=== PATIENT | male | born 1990 | race Caucasian/White ===

== ENCOUNTER 2023-06-09 17:54 | Inpatient (IN) | payer OTHER, SELFPAY ==
[2023-06-09 18:07] VITALS: BP 111/72; PULSE 55; TEMP 36.3; O2SAT 99
--- NOTE | 2023-06-09 18:41 | PC.NURSE ---
Pt refued flu vaccine and nicotine replacement at this time
--- NOTE | 2023-06-09 18:58 | PC.ADMIT ---
Errol is a 32-year-old male admitted from [facility] ED to M3 on a CV for treatment of unspecified schizophrenia and other psychotic features. Pt denied substance use but tox screen positive for methadone, fentanyl, cocaine, THC. Pt utilizes [facility] on [address] for methadone maintenance. Pt has medical hx of cirrhosis and untreated hep C. Pt also had several teeth pulled yesterday and is on antibiotics. Pt has healed scars on bilateral arms r/t drug use. Pt was admitted to the ED after hearing voices telling him to do horrible things to myself. During admission assessment, pt presented as alert and oriented but thought process was disorganized with bizarre speech. Pt refused to answer some assessment questions and would instead ask do you believe in unicorns? Pt was otherwise pleasant and cooperative, pt currently denies SI/HI/AH/VH, placed on 15 min checks.
[2023-06-09] MEDS: Ibuprofen 600 MG TABLET PO (19:08)
[2023-06-09 19:50] VITALS: BP 110/60; PULSE 51; RESP 16; TEMP 36.3; O2SAT 99
[2023-06-09] MEDS: chlorproMAZINE HCl 25 MG TABLET 50 MG PO (20:25)
[2023-06-09] MEDS: traZODone HCL 50 MG TABLET PO (20:26)
[2023-06-09] MEDS: hydrOXYzine HCL 25 MG TABLET PO (20:26)
[2023-06-09] MEDS: ARIPiprazole 5 MG TABLET PO (20:26)
[2023-06-09] MEDS: Amoxicillin 500 MG CAPSULE PO (22:47)
--- NOTE | 2023-06-10 07:03 | PC.NURSE ---
This specification writer has verified the patients methadone dose at the [facility] by the clinic nurse Evy. Per clinic staff the patient received his last methadone dose of 55mg at 06:53 on 06/09/23. Dr Newman made aware, medication ordered
[2023-06-10] MEDS: Amoxicillin 500 MG CAPSULE PO (07:10)
[2023-06-10] MEDS: Ibuprofen 600 MG TABLET PO ×2 (07:13→20:18)
[2023-06-10 08:25] VITALS: BP 119/83; PULSE 62; RESP 16; TEMP 36.3; O2SAT 100
[2023-06-10] MEDS: ARIPiprazole 5 MG TABLET PO (08:31)
--- NOTE | 2023-06-10 08:32 | HE.PHANOTE ---
METHADONE CONFIRMATION FORM 55 MG LAST TAKEN 06/09 FROM [facility]
[2023-06-10 08:34] LABS: Estimated Average Glucose 100 mg/dL; Hemoglobin A1c % 5.1 % (<6.0)
[2023-06-10 08:39] LABS: Alanine Aminotransferase 99 U/L (0-40); Albumin Level 3.8 g/dL (3.5-5.0); Alkaline Phosphatase 54 U/L (39-117); Anion Gap 12 (12-20); Aspartate Amino Transferase 50 U/L (5-37); Bilirubin Total 0.5 mg/dL (0.0-1.0); Blood Urea Nitrogen 12 mg/dL (9-16); Calcium 9.2 mg/dL (8.4-10.2); Carbon Dioxide 27 mmol/L (22-29); Chloride 104 mmol/L (96-108); Cholesterol 144 mg/dL (<200); Estimated Glomerular Filt Rate > 60; Glucose Fasting 94 mg/dL (60-99); HDL Cholesterol 41 mg/dL (>40); LDL Cholesterol Calculated 88 mg/dL (<100); Potassium 4.6 mmol/L (3.3-5.1); Sodium 138 mmol/L (135-145); Total Protein 6.5 g/dL (6.5-8.0); Triglycerides 78 mg/dL (<150)
[2023-06-10] MEDS: methADONE HCl 20 MG/2 ML ORAL.CONC 55 MG PO (08:42)
--- NOTE | 2023-06-10 09:44 | HO.PSYADMNOT ---
HPI Date of Service: 06/10/23 Chief Complaint: psychosis Sources of Information: patient interviewed, chart reviewed and crisis/core team assessment reviewed HPI Subjective Notes: Cope Warning (given and shows understanding) and Conditional Voluntary Narrative: Mr. Mays is a 32 year-old male with hx of schizophrenia, complicated by opioid and cocaine use disorder. Mr. Mays self presented to [facility] ED reporting hearing voices telling him to do horrible things. In the ED, his utox was positive for fentanyl, cocaine and cannabis. On the unit, pt continued to present as disorganized, very restless, pacing and running up and down the [place]. He continues to report hearing voices, which are bothering him and he asks for medications to stop them. He denies SI/HI. He reports poor sleep. Interview is limited due to pt presenting as very restless, distressed with auditory hallucinations. He does report using cocaine and fentanyl recently. He poor appetite. He reports he has been on abilify for depression however, concern in terms of abilify exacerbating akathisia. Past Psychiatric History: Inpt: unknown details, previous admission but unknown dates OP: none Past medication trials: thorazine, abilify, seroquel Medical Evaluation Reviewed: Yes In ED- cbc grossly unremarkable. CMP- no electrolyte abnormalities, BUN 18, Cr. 0.89. Slight elevation of AST 46, ALT 107 EKG- sinus bradycardia, Qtc 390. [facility] Medical History (Updated 06/10/23 @ 14:59 by Vonnie Main) Opioid use disorder, severe, dependence Family History: none Social History: he does not have stable place to live. Substance History: pt reports using cocaine for several years, unknown amount He also reports using opioids, on methadone. alcohol- denies Trauma History: hx of but no details reported. Diagnostics Vital Signs (24Hr): Vital Signs - 24 hr 06/09/23 18:07 06/09/23 19:50 06/10/23 08:25 Temperature 97.4 F 97.3 F 97.4 F Pulse Rate 55 51 62 Respiratory Rate 16 16 Blood Pressure 111/72 110/60 119/83 Pulse Oximetry 99 99 100 Oxygen Delivery Method Room Air Room Air Room Air Labs 06/10/23 08:15 Labs: Laboratory Results - last 48 hr 06/10/23 08:15 Sodium 138 Potassium 4.6 Chloride 104 Carbon Dioxide 27 Anion Gap 12 BUN 12 Creatinine 0.83 Estim Creat Clear Calc TNP Estimated GFR > 60 Fasting Glucose 94 Estimat Average Glucose 100 Hemoglobin A1c % 5.1 Calcium 9.2 Total Bilirubin 0.5 AST 50 H ALT 99 H Alkaline Phosphatase 54 Total Protein 6.5 Albumin 3.8 Triglycerides 78 Cholesterol 144 LDL Cholesterol, Calc 88 HDL Cholesterol 41 Meds/Allergies Meds Home Medications Medication Instructions Recorded Confirmed Type aripiprazole 5 mg tablet 5 mg PO BID psychosis 06/09/23 06/09/23 History Allergies Allergies Allergy/AdvReac Type Severity Reaction Status Date / Time Radha Thomas Allergy Unknown Verified 06/09/23 18:15 Mental Status Exam Mental Status Exam Narrative: Appearance: casually groomed, fair hygiene, restless, pacing unable to stay still Psychomotor: restless, pacing, unable to stay still Behavior: cooperative Speech: mostly clear, regular rate/rhythm, volume, spontaneous TP: mostly linear TC: hearing voices, feeling very restless, pacing, tapping feet Mood: anxious Affect: restless, distress by auditory hallucinations SI: denies HI: denies VH/AH: hearing voices telling him to do horrible things Delusions: persecutory delusions Insight/judgment: fair x 2. Memory/cog: alert, oriented x 3. poor attention due to ongoing AH. Assessment & Plan Assessment & Plan (1) Schizophrenia: Status: Acute Code(s): F20.9 - Schizophrenia, unspecified (2) Opioid use disorder, moderate, dependence: Status: Acute Code(s): F11.20 - Opioid dependence, uncomplicated (3) Cocaine use disorder, moderate, dependence: Status: Acute Code(s): F14.20 - Cocaine dependence, uncomplicated Plan Mr. Mays is a 32 year-old male with hx of schizophrenia and opioid/cocaine use disorder who self presented to [facility] ED reporting increase AH telling him to do horrible things. Utox positive for fentanyl, cocaine, cannabis. Pt continues to present restless (which also suspect worsened by akathisia), reporting AH and feeling very distress by them. He also presents with persecutory delusions. We discussed risks, benefits and alternative treatment options. He agrees to stop abilify due to akathisia. WIll start olanzapine 10mg po BID. PLAN 1. Admit to M3, CV, 15 minutes checks for safety 2. d/c abilify due to akathisia 3. start olanzapine 10mg po BID. 4. aftercare planning. Patient educated on: diagnosis, medication risk/benefits and substance abuse Reason for continued inpatient stay Substantial Risk for: harm to self and inability to function Statement Statement: I have reviewed the history and physical and performed a pertinent examination on my patient. No changes have occurred unless specified. If the History and Physical was not performed prior to admission, the Hospitalist's service will be consulted for completing the admission physical. Time Spent With Patient Time: Total time managing care of this patient today ____ minutes.
[2023-06-10] MEDS: Acetaminophen 325 MG TABLET 650 MG PO ×2 (09:58→20:18)
[2023-06-10] MEDS: LORazepam 1 MG TABLET 2 MG PO (11:29)
[2023-06-10] MEDS: OLANZapine ODT 10 MG TAB.RAPDIS 20 MG TRANSLINGU (11:30)
--- NOTE | 2023-06-10 12:08 | P.CONIM_ITS ---
History of Present Illness Data of Consult Service Date: 06/10/23 Primary Care Provider: Chad Rodriguez MD HPI Reason for consult: Medical care A 32 years old male with PMH of schizophrenia and Narcotic abuse on Methadone who presented the psychiatry unit for treatment of psychosis. The patient denies any active pain, fever or chills. Hospitalist team asked to evaluated for medical need. Review of Systems 2 Review of Systems: Yes all other systems are reviewed and are negative [facility] Medical History (Updated 06/10/23 @ 14:59 by Vonnie Main) Opioid use disorder, severe, dependence Social History Household Members: None Housing: Homeless Patient Tobacco Use Status: Current someday Tobacco user Tobacco use type: Cigarette Cigarette Packs Per Day: 0.25 Cigarettes Per Day: 5.0 Smoked in Last 30 Days: Yes Frequency of e-Cigarette/Vaping Use: daily Patient Interested in Nicotine Replacement: No Patient Given Instructions on How to Stop Smoking: Yes Date Education Initiated: 06/09/23 Use of substances other than those prescribed or required for medical reasons: Yes Substance Use Type: Crack/Cocaine, Heroin and Marijuana Substance Use Frequency: Daily Last Used Substance: Just Prior to Admission Currently Displaying Signs/Symptoms of Drug Intoxication Withdrawal: No Any prior treatment program specific to substance use: Yes (on methadone) Have you been hit, kicked, punched, or otherwise hurt by someone within the past year? If so, by whom?: No Do you feel safe in your current relationship?: No Current Relationship Is there a partner from a previous relationship who is making you feel unsafe now?: No Are you made to feel afraid or neglected: No Advance Directives: No Advance Directives Information Provided: No Do you have thoughts of harming others: None Do you have a plan to hurt others: No Plan Recently lost weight without trying: No Nutrition Risks: No Nutritional Risk service: Yes Sexual orientation: Straight/Heterosexual Meds Allergies Allergy/AdvReac Type Severity Reaction Status Date / Time Radha Thomas Allergy Unknown Verified 06/09/23 18:15 Active Medications: Current Medications Acetaminophen (Acetaminophen 325 Mg Tablet) 650 mg PO Q6H PRN PRN Reason: Headache/Pain Mild Scale (1-3) Last Admin: 06/10/23 09:58 Dose: 650 mg Al Hydroxide/Mg Hydroxide (Magnesium Hydrox/Alum Hydrox 30 Ml Oral.Susp) 30 ml PO Q6H PRN PRN Reason: Heartburn/Nausea Amoxicillin (Amoxicillin 500 Mg Capsule) 500 mg PO Q8H [facility] Last Admin: 06/10/23 07:10 Dose: 500 mg Hydroxyzine HCl (Hydroxyzine Hcl 25 Mg Tablet) 25 mg PO Q6H PRN PRN Reason: Anxiety Last Admin: 06/09/23 20:26 Dose: 25 mg Ibuprofen (Ibuprofen 600 Mg Tablet) 600 mg PO Q6H PRN PRN Reason: Pain, Mild (Pain Scale 1-3) Last Admin: 06/10/23 07:13 Dose: 600 mg Magnesium Hydroxide (Milk Of Magnesia 30 Ml Oral.Susp) 30 ml PO DAILY PRN PRN Reason: Constipation Methadone HCl (Methadone Hcl 20 Mg/2 Ml Oral.Conc) 55 mg PO DAILY [facility] Last Admin: 06/10/23 08:42 Dose: 55 mg Nicotine (Nicotine 21 Mg Patch.Td24) 21 mg TRANSDERMA DAILY PRN PRN Reason: smoking cessation Nicotine Polacrilex (Nicotine Polacrilex 2 Mg Gum) 4 mg BUCCAL Q2H PRN PRN Reason: Nicotine Cravings Olanzapine (Olanzapine Odt 10 Mg Tab.Rapdis) 10 mg TRANSLINGU BID [facility] Olanzapine (Olanzapine Odt 10 Mg Tab.Rapdis) 10 mg TRANSLINGU BID PRN PRN Reason: agitation Trazodone HCl (Trazodone Hcl 50 Mg Tablet) 50 mg PO BEDTIME MRX1 PRN PRN Reason: Insomnia Home Medications Medication Instructions Recorded Confirmed Last Taken Type aripiprazole 5 mg tablet 5 mg PO BID psychosis 06/09/23 06/09/23 Unknown History Physical Exam 2 Vital Signs and Narrative: Vital Signs: Last Vital Signs Temp 97.4 F 06/10/23 08:25 Pulse 62 06/10/23 08:25 Resp 16 06/10/23 08:25 BP 119/83 06/10/23 08:25 Pulse Ox 100 06/10/23 08:25 O2 Del Method Room Air 06/10/23 08:25 Const: Other: Constitutional : Awake, interactive, not in distress Cardiovascular : RRR, no JVP, no lower extremity edema Respiratory : good bilateral air entry, no crackles, wheezes or rhonchi Gastrointestinal: soft, lax, Normal bowel sounds, Non tender Neurological : Alert & oriented x3, No focal deficit , CN 2-12 within normal Results Labs 06/10/23 08:15 Labs: Laboratory Results - last 24 hr 06/10/23 08:15 Anion Gap 12 Estim Creat Clear Calc TNP Estimated GFR > 60 Fasting Glucose 94 Estimat Average Glucose 100 Hemoglobin A1c % 5.1 Calcium 9.2 Total Bilirubin 0.5 AST 50 H ALT 99 H Alkaline Phosphatase 54 Total Protein 6.5 Albumin 3.8 Triglycerides 78 Cholesterol 144 LDL Cholesterol, Calc 88 HDL Cholesterol 41 Assessment and Plan (1) Opioid use disorder, moderate, dependence: Status: Acute (2) Schizophrenia: Status: Acute Plan A 32 years old male with PMH of schizophrenia and Narcotic abuse on Methadone who presented the psychiatry unit for treatment of psychosis. Hx Opioid abuse on Methadone Continue home dose addiction team follow up as needed Toothache post removal of 3 teeth last week on Ibuprofen and Amoxicillin Thank you for the consult. Please contact hospitalist team for any further questions
[2023-06-10 20:05] VITALS: BP 118/69; PULSE 60; RESP 15; TEMP 36.2; O2SAT 100
[2023-06-10] MEDS: hydrOXYzine HCL 25 MG TABLET PO (20:18)
[2023-06-10] MEDS: OLANZapine ODT 10 MG TAB.RAPDIS TRANSLINGU (20:19)
[2023-06-11] MEDS: Acetaminophen 325 MG TABLET 650 MG PO ×3 (06:01→18:00)
[2023-06-11] MEDS: Ibuprofen 600 MG TABLET PO ×3 (06:01→18:00)
[2023-06-11] MEDS: Amoxicillin 500 MG CAPSULE PO ×3 (06:30→20:15)
[2023-06-11 07:55] VITALS: BP 111/58; PULSE 84; TEMP 36.6; O2SAT 98
[2023-06-11] MEDS: methADONE HCl 20 MG/2 ML ORAL.CONC 55 MG PO (08:10)
[2023-06-11] MEDS: OLANZapine ODT 10 MG TAB.RAPDIS TRANSLINGU ×3 (08:10→20:15)
[2023-06-11] MEDS: hydrOXYzine HCL 25 MG TABLET PO ×2 (10:29→16:58)
[2023-06-11 20:00] VITALS: BP 125/74; PULSE 59; RESP 16; TEMP 37.1; O2SAT 99
[2023-06-11] MEDS: traZODone HCL 50 MG TABLET PO (20:14)
--- NOTE | 2023-06-11 20:18 | PC.NURSE ---
requested HS ANTIBIOTIC AT THIS TIME.
--- NOTE | 2023-06-11 22:41 | HO.PSYCHPN ---
Subjective Subjective Date of Service: 06/11/23 Reason For Visit: psychosis Interim History: cc: they switched my ABilify it does..heriberto Patient was asleep when I arrived this evening. Reports being on Abilify for one day but feels it made a difference. He doesnt like the medication he is on now and says he doesn know why it was changed. He does not recall any adverse effects. Uses expletives, is clearly very angry. Does notably speaks in a manner that makes him presents as younger than his age. He also has odd body gesturing upon sitting up and walking. He is restless w irregular hand fidgeting, as well as making incongruent facial expressions. He has been at the methdone clinic for 2 weeks currently at 55 mg he says. He reports cravings, usually after dinner. He intermittenly gets angry about his doctor stopping the ABilify. He reports disrupted sleep, 3-4 times a night Mental Status Exam Mental Status Exam Narrative: Alert, oriented, in no acute distress. In hospital gown. Abnormal gait. Restless, irregular writhing movements in hands, fingers fidgeting. No tics or tremors. Speech without dysarthria or slurring. Mood angry, affect labile. Thought process perseverative, thought blocking, scattered. Thought content relevant to one particular medication. Denies AVH, ?responding to internal stimuli. Cognition with memory impairment. Insight and judgment impaired. Diagnostics Vital Signs (24Hr): Vital Signs - 24 hr 06/11/23 07:55 06/11/23 20:00 Temperature 97.9 F 98.7 F Pulse Rate 84 59 Respiratory Rate 16 Blood Pressure 111/58 L 125/74 Pulse Oximetry 98 99 Oxygen Delivery Method Room Air Room Air Labs 06/10/23 08:15 Labs: Laboratory Results - last 48 hr 06/10/23 08:15 Sodium 138 Potassium 4.6 Chloride 104 Carbon Dioxide 27 Anion Gap 12 BUN 12 Creatinine 0.83 Estim Creat Clear Calc TNP Estimated GFR > 60 Fasting Glucose 94 Estimat Average Glucose 100 Hemoglobin A1c % 5.1 Calcium 9.2 Total Bilirubin 0.5 AST 50 H ALT 99 H Alkaline Phosphatase 54 Total Protein 6.5 Albumin 3.8 Triglycerides 78 Cholesterol 144 LDL Cholesterol, Calc 88 HDL Cholesterol 41 Medications Medications Current Medications Acetaminophen (Acetaminophen 325 Mg Tablet) 650 mg PO Q6H PRN PRN Reason: Headache/Pain Mild Scale (1-3) Last Admin: 06/11/23 18:00 Dose: 650 mg Al Hydroxide/Mg Hydroxide (Magnesium Hydrox/Alum Hydrox 30 Ml Oral.Susp) 30 ml PO Q6H PRN PRN Reason: Heartburn/Nausea Amoxicillin (Amoxicillin 500 Mg Capsule) 500 mg PO Q8H [facility] Last Admin: 06/11/23 20:15 Dose: 500 mg Hydroxyzine HCl (Hydroxyzine Hcl 25 Mg Tablet) 25 mg PO Q6H PRN PRN Reason: Anxiety Last Admin: 06/11/23 16:58 Dose: 25 mg Ibuprofen (Ibuprofen 600 Mg Tablet) 600 mg PO Q6H PRN PRN Reason: Pain, Mild (Pain Scale 1-3) Last Admin: 06/11/23 18:00 Dose: 600 mg Magnesium Hydroxide (Milk Of Magnesia 30 Ml Oral.Susp) 30 ml PO DAILY PRN PRN Reason: Constipation Methadone HCl (Methadone Hcl 20 Mg/2 Ml Oral.Conc) 55 mg PO DAILY [facility] Last Admin: 06/11/23 08:10 Dose: 55 mg Nicotine (Nicotine 21 Mg Patch.Td24) 21 mg TRANSDERMA DAILY PRN PRN Reason: smoking cessation Nicotine Polacrilex (Nicotine Polacrilex 2 Mg Gum) 4 mg BUCCAL Q2H PRN PRN Reason: Nicotine Cravings Olanzapine (Olanzapine Odt 10 Mg Tab.Rapdis) 10 mg TRANSLINGU BID [facility] Last Admin: 06/11/23 20:15 Dose: 10 mg Olanzapine (Olanzapine Odt 10 Mg Tab.Rapdis) 10 mg TRANSLINGU BID PRN PRN Reason: agitation Last Admin: 06/11/23 13:15 Dose: 10 mg Trazodone HCl (Trazodone Hcl 50 Mg Tablet) 50 mg PO BEDTIME MRX1 PRN PRN Reason: Insomnia Last Admin: 06/11/23 20:14 Dose: 50 mg Allergies Allergies Allergy/AdvReac Type Severity Reaction Status Date / Time Radha Thomas Allergy Unknown Verified 06/09/23 18:15 Assessment & Plan Assessment & Plan (1) Opioid use disorder, moderate, dependence: Status: Acute Code(s): F11.20 - Opioid dependence, uncomplicated (2) Schizophrenia: Status: Acute Code(s): F20.9 - Schizophrenia, unspecified Plan A 32 years old male with PMH of schizophrenia and Narcotic abuse on Methadone who presented the psychiatry unit for treatment of psychosis. Hx Opioid abuse on Methadone Continue home dose addiction team follow up as needed Toothache post removal of 3 teeth last week on Ibuprofen and Amoxicillin Thank you for the consult. Please contact hospitalist team for any further questions Reason for continued inpatient stay Substantial Risk for: inability to function, rapid decompensation and med/psych decompensation Time Spent With Patient Time: Total time managing care of this patient today ____ minutes.
[2023-06-12] MEDS: Acetaminophen 325 MG TABLET 650 MG PO ×4 (00:21→21:59)
[2023-06-12] MEDS: traZODone HCL 50 MG TABLET PO ×2 (00:22→20:02)
[2023-06-12] MEDS: Ibuprofen 600 MG TABLET PO ×5 (00:23→23:32)
[2023-06-12] MEDS: Amoxicillin 500 MG CAPSULE PO ×3 (06:12→20:02)
[2023-06-12] MEDS: hydrOXYzine HCL 25 MG TABLET PO ×2 (06:12→09:34)
[2023-06-12] MEDS: OLANZapine ODT 10 MG TAB.RAPDIS TRANSLINGU ×2 (08:08→13:19)
[2023-06-12] MEDS: methADONE HCl 20 MG/2 ML ORAL.CONC 55 MG PO (08:09)
[2023-06-12 08:25] VITALS: BP 124/65; PULSE 70; RESP 16; TEMP 35.9; O2SAT 100
[2023-06-12] MEDS: Nicotine 21 MG PATCH.TD24 TRANSDERMA (09:00)
[2023-06-12] MEDS: Nicotine Polacrilex 2 MG GUM 4 MG BUCCAL (10:58)
[2023-06-12] MEDS: hydrOXYzine HCL 50 MG TABLET PO (18:07)
[2023-06-12 19:55] VITALS: BP 121/70; PULSE 79; RESP 18; TEMP 36.7; O2SAT 96
[2023-06-12] MEDS: OLANZapine 7.5 MG TABLET 15 MG PO (20:01)
[2023-06-12] MEDS: cloNIDine HCL 0.1 MG TABLET PO (20:02)
--- NOTE | 2023-06-12 22:38 | HO.PSYCHPN ---
Subjective Subjective Date of Service: 06/13/23 Reason For Visit: psychosis Interim History: Patient seen in the early evening. He was again woken from sleep with overexaggerated expression of surprised/terror held for several seconds at a time. . He presents as labile, needy, he wants his ABilify back and often returns to this complaint. Becaomes increasingly more difficult to redirect. Disorganized. Bizarre behavior and attends poorly to discussion. He presents as younger than his age and has irregular hand fidgeting w subtle irregular choreic movements in hands. Abnormal gait and spasmodic posture, relaxing/extending back. Sometimes odd or exaggerated facial expressions, raising eyebrows, at times holds a terrified look for moments at time, or other incongruent facial expressions. Mental Status Exam Mental Status Exam Narrative: Alert, oriented, in no acute distress. In hospital gown. Abnormal gait. Restless, irregular writhing movements in hands, fingers fidgeting. No tics or tremors. Speech without dysarthria or slurring. Mood angry, affect labile. Thought process perseverative, thought blocking, scattered. Thought content relevant to one particular medication. Denies AVH, ?responding to internal stimuli. Cognition with memory impairment. Insight and judgment impaired. Diagnostics Vital Signs (24Hr): Vital Signs - 24 hr 06/12/23 08:25 06/12/23 19:55 Temperature 96.7 F L 98.0 F Pulse Rate 70 79 Respiratory Rate 16 18 Blood Pressure 124/65 121/70 Pulse Oximetry 100 96 Oxygen Delivery Method Room Air Room Air Labs 06/10/23 08:15 Medications Medications Current Medications Acetaminophen (Acetaminophen 325 Mg Tablet) 650 mg PO Q6H PRN PRN Reason: Headache/Pain Mild Scale (1-3) Last Admin: 06/12/23 21:59 Dose: 650 mg Al Hydroxide/Mg Hydroxide (Magnesium Hydrox/Alum Hydrox 30 Ml Oral.Susp) 30 ml PO Q6H PRN PRN Reason: Heartburn/Nausea Amoxicillin (Amoxicillin 500 Mg Capsule) 500 mg PO Q8H [facility] Last Admin: 06/12/23 20:02 Dose: 500 mg Clonidine HCl (Clonidine Hcl 0.1 Mg Tablet) 0.1 mg PO Q6H PRN; Protocol PRN Reason: anxiety/restlessness Last Admin: 06/12/23 20:02 Dose: 0.1 mg Hydroxyzine HCl (Hydroxyzine Hcl 50 Mg Tablet) 50 mg PO Q6H PRN PRN Reason: Anxiety Last Admin: 06/12/23 18:07 Dose: 50 mg Ibuprofen (Ibuprofen 600 Mg Tablet) 600 mg PO Q6H PRN PRN Reason: Pain, Mild (Pain Scale 1-3) Last Admin: 06/12/23 18:07 Dose: 600 mg Magnesium Hydroxide (Milk Of Magnesia 30 Ml Oral.Susp) 30 ml PO DAILY PRN PRN Reason: Constipation Methadone HCl (Methadone Hcl 20 Mg/2 Ml Oral.Conc) 55 mg PO DAILY [facility] Last Admin: 06/12/23 08:09 Dose: 55 mg Nicotine (Nicotine 21 Mg Patch.Td24) 21 mg TRANSDERMA DAILY PRN PRN Reason: smoking cessation Last Admin: 06/12/23 09:00 Dose: 21 mg Nicotine Polacrilex (Nicotine Polacrilex 2 Mg Gum) 4 mg BUCCAL Q2H PRN PRN Reason: Nicotine Cravings Last Admin: 06/12/23 10:58 Dose: 4 mg Olanzapine (Olanzapine Odt 10 Mg Tab.Rapdis) 10 mg TRANSLINGU BID PRN PRN Reason: agitation Last Admin: 06/12/23 13:19 Dose: 10 mg Olanzapine (Olanzapine 7.5 Mg Tablet) 15 mg PO BEDTIME [facility] Last Admin: 06/12/23 20:01 Dose: 15 mg Olanzapine (Olanzapine 10 Mg Tablet) 10 mg PO DAILY [facility] Trazodone HCl (Trazodone Hcl 50 Mg Tablet) 50 mg PO BEDTIME MRX1 PRN PRN Reason: Insomnia Last Admin: 06/12/23 20:02 Dose: 50 mg Allergies Allergies Allergy/AdvReac Type Severity Reaction Status Date / Time Radha Thomas Allergy Unknown Verified 06/09/23 18:15 Assessment & Plan Assessment & Plan (1) Opioid use disorder, moderate, dependence: Status: Acute Code(s): F11.20 - Opioid dependence, uncomplicated (2) Schizophrenia: Status: Acute Code(s): F20.9 - Schizophrenia, unspecified Plan A 32 years old male with PMH of schizophrenia and Narcotic abuse on Methadone who presented the psychiatry unit for treatment of psychosis. Hx Opioid abuse on Methadone Continue home dose addiction team follow up as needed Toothache post removal of 3 teeth last week on Ibuprofen and Amoxicillin Thank you for the consult. Please contact hospitalist team for any further questions Reason for continued inpatient stay Substantial Risk for: inability to function, rapid decompensation and med/psych decompensation Time Spent With Patient Time: Total time managing care of this patient today ____ minutes.
[2023-06-13] MEDS: traZODone HCL 50 MG TABLET PO ×3 (00:33→22:42)
[2023-06-13] MEDS: Amoxicillin 500 MG CAPSULE PO ×3 (05:58→20:49)
[2023-06-13] MEDS: Ibuprofen 600 MG TABLET PO ×3 (05:58→20:50)
[2023-06-13 06:00] VITALS: BP 109/55; PULSE 53; RESP 24; TEMP 36.1; O2SAT 100
[2023-06-13] MEDS: OLANZapine 10 MG TABLET PO (08:07)
[2023-06-13] MEDS: methADONE HCl 20 MG/2 ML ORAL.CONC 55 MG PO (08:07)
[2023-06-13] MEDS: Acetaminophen 325 MG TABLET 650 MG PO ×3 (08:13→22:40)
[2023-06-13] MEDS: Nicotine 21 MG PATCH.TD24 TRANSDERMA (08:13)
[2023-06-13] MEDS: hydrOXYzine HCL 50 MG TABLET PO ×2 (10:48→20:50)
[2023-06-13] MEDS: OLANZapine ODT 10 MG TAB.RAPDIS TRANSLINGU (13:30)
[2023-06-13] MEDS: OLANZapine 7.5 MG TABLET 15 MG PO (20:49)
[2023-06-13 20:55] VITALS: BP 121/66; PULSE 57; RESP 18; TEMP 36.2; O2SAT 97
--- NOTE | 2023-06-13 21:46 | HO.PSYCHPN ---
Subjective Subjective Date of Service: 06/13/23 Reason For Visit: psychosis Interim History: Patient was seen walking the hallways with headphones on. He continues to present as bright, superficial. Says he is doing well. Mood is great...been real happy . Denies any helplessness, hopelessness or SI. He reports feeling he is back to his normal self. He says he plans to no longer drink. I was drinking when I said I was going to kill myself He reports that he needs to give that up along with marijuana which he says is less of an issue. He adds that he spoke to his BF/partner about this who is fully supportive. Mental Status Exam Mental Status Exam Narrative: Alert, oriented, in no acute distress. Casually dressed. Calm, cooperative, forthcoming. Eye contact good. Mood euthymic, affect bright. Normal speech. No evidence of thought disorder. Thought content relevant to stressors. No SI or HI on inquiry. No evidence of mukund or psychosis. Cognition grossly intact. Sensorium clear. Insight and judgment fair/good Diagnostics Vital Signs (24Hr): Vital Signs - 24 hr 06/13/23 06:00 06/13/23 20:55 Temperature 96.9 F 97.1 F Pulse Rate 53 57 Respiratory Rate 24 H 18 Blood Pressure 109/55 L 121/66 Pulse Oximetry 100 97 Oxygen Delivery Method Room Air Room Air Labs 06/10/23 08:15 Medications Medications Current Medications Acetaminophen (Acetaminophen 325 Mg Tablet) 650 mg PO Q6H PRN PRN Reason: Headache/Pain Mild Scale (1-3) Last Admin: 06/13/23 16:50 Dose: 650 mg Al Hydroxide/Mg Hydroxide (Magnesium Hydrox/Alum Hydrox 30 Ml Oral.Susp) 30 ml PO Q6H PRN PRN Reason: Heartburn/Nausea Amoxicillin (Amoxicillin 500 Mg Capsule) 500 mg PO Q8H [facility] Last Admin: 06/13/23 20:49 Dose: 500 mg Clonidine HCl (Clonidine Hcl 0.1 Mg Tablet) 0.1 mg PO Q6H PRN; Protocol PRN Reason: anxiety/restlessness Last Admin: 06/12/23 20:02 Dose: 0.1 mg Hydroxyzine HCl (Hydroxyzine Hcl 50 Mg Tablet) 50 mg PO Q6H PRN PRN Reason: Anxiety Last Admin: 06/13/23 20:50 Dose: 50 mg Ibuprofen (Ibuprofen 600 Mg Tablet) 600 mg PO Q6H PRN PRN Reason: Pain, Mild (Pain Scale 1-3) Last Admin: 06/13/23 20:50 Dose: 600 mg Magnesium Hydroxide (Milk Of Magnesia 30 Ml Oral.Susp) 30 ml PO DAILY PRN PRN Reason: Constipation Methadone HCl (Methadone Hcl 20 Mg/2 Ml Oral.Conc) 55 mg PO DAILY [facility] Last Admin: 06/13/23 08:07 Dose: 55 mg Nicotine (Nicotine 21 Mg Patch.Td24) 21 mg TRANSDERMA DAILY PRN PRN Reason: smoking cessation Last Admin: 06/13/23 08:13 Dose: 21 mg Nicotine Polacrilex (Nicotine Polacrilex 2 Mg Gum) 4 mg BUCCAL Q2H PRN PRN Reason: Nicotine Cravings Last Admin: 06/12/23 10:58 Dose: 4 mg Olanzapine (Olanzapine Odt 10 Mg Tab.Rapdis) 10 mg TRANSLINGU BID PRN PRN Reason: agitation Last Admin: 06/13/23 13:30 Dose: 10 mg Olanzapine (Olanzapine 7.5 Mg Tablet) 15 mg PO BEDTIME [facility] Last Admin: 06/13/23 20:49 Dose: 15 mg Olanzapine (Olanzapine 10 Mg Tablet) 10 mg PO DAILY [facility] Last Admin: 06/13/23 08:07 Dose: 10 mg Trazodone HCl (Trazodone Hcl 50 Mg Tablet) 50 mg PO BEDTIME MRX1 PRN PRN Reason: Insomnia Last Admin: 06/13/23 20:50 Dose: 50 mg Allergies Allergies Allergy/AdvReac Type Severity Reaction Status Date / Time Radha Thomas Allergy Unknown Verified 06/09/23 18:15 Assessment & Plan Assessment & Plan (1) Opioid use disorder, moderate, dependence: Status: Acute Code(s): F11.20 - Opioid dependence, uncomplicated (2) Schizophrenia: Status: Acute Code(s): F20.9 - Schizophrenia, unspecified Plan A 32 years old male with PMH of schizophrenia and Narcotic abuse on Methadone who presented the psychiatry unit for treatment of psychosis. Hx Opioid abuse on Methadone Continue home dose addiction team follow up as needed Toothache post removal of 3 teeth last week on Ibuprofen and Amoxicillin Thank you for the consult. Please contact hospitalist team for any further questions Reason for continued inpatient stay Substantial Risk for: rapid decompensation and med/psych decompensation Time Spent With Patient Time: Total time managing care of this patient today ____ minutes.
[2023-06-14] MEDS: Ibuprofen 600 MG TABLET PO ×3 (03:52→20:26)
--- NOTE | 2023-06-14 03:52 | P.PNPSI_ITS ---
Subjective Subjective Date of Service: 06/13/23 Reason For Visit: psychosis Interim History: cc: I want my ABilify back! Patient was visible on the unit. Intrusive, hyperfocused on the ABilify. Approached me abruptly a few times, including while in the nursing station, about his ABilify. Also asked random staff members for his Abilify and was told to speak with the doctor. . He asked to speak with doctor and says He does not recall meeting me before, even after given reminders of our previous encounters over the past few days. He was labile, angry, irritable. Dismissed questions or attempts to redirect conversation to other topics. He presents as younger than his age and has irregular hand fidgeting w subtle irregular choreic movements in hands. Abnormal gait and spasmodic posture, relaxing/extending back. Sometimes odd or exaggerated facial expressions, raising eyebrows, at times holds a terrified look for moments at time, or other incongruent facial expressions. Memory and intellectual impairment, wondering if there's any history of Ccerebral palsy, or tourettes but no vocal tics. or possibly? Huntingtons disease, abnormal body movements, subtle, not grossly impairing but are highly peculiar. ?? No previous patient history in chart Mental Status Exam Mental Status Exam Narrative: Alert, oriented, in no acute distress. In hospital gown. Abnormal gait. Restless, irregular writhing movements in hands, fingers fidgeting. No tics or tremors. Speech without dysarthria or slurring. Mood angry, affect labile. Thought process perseverative, thought blocking, scattered. Thought content relevant to one particular medication. Denies AVH, ?repsonding to internal stimuli. Cognition with memory impairment. Insight and judgment impaired. Diagnostics Vital Signs (24Hr): Vital Signs - 24 hr 06/13/23 06:00 06/13/23 20:55 Temperature 96.9 F 97.1 F Pulse Rate 53 57 Respiratory Rate 24 H 18 Blood Pressure 109/55 L 121/66 Pulse Oximetry 100 97 Oxygen Delivery Method Room Air Room Air Labs 06/10/23 08:15 Medications Medications Current Medications Acetaminophen (Acetaminophen 325 Mg Tablet) 650 mg PO Q6H PRN PRN Reason: Headache/Pain Mild Scale (1-3) Last Admin: 06/13/23 22:40 Dose: 650 mg Al Hydroxide/Mg Hydroxide (Magnesium Hydrox/Alum Hydrox 30 Ml Oral.Susp) 30 ml PO Q6H PRN PRN Reason: Heartburn/Nausea Amoxicillin (Amoxicillin 500 Mg Capsule) 500 mg PO Q8H [facility] Last Admin: 06/13/23 20:49 Dose: 500 mg Clonidine HCl (Clonidine Hcl 0.1 Mg Tablet) 0.1 mg PO Q6H PRN; Protocol PRN Reason: anxiety/restlessness Last Admin: 06/12/23 20:02 Dose: 0.1 mg Hydroxyzine HCl (Hydroxyzine Hcl 50 Mg Tablet) 50 mg PO Q6H PRN PRN Reason: Anxiety Last Admin: 06/13/23 20:50 Dose: 50 mg Ibuprofen (Ibuprofen 600 Mg Tablet) 600 mg PO Q6H PRN PRN Reason: Pain, Mild (Pain Scale 1-3) Last Admin: 06/13/23 20:50 Dose: 600 mg Magnesium Hydroxide (Milk Of Magnesia 30 Ml Oral.Susp) 30 ml PO DAILY PRN PRN Reason: Constipation Methadone HCl (Methadone Hcl 20 Mg/2 Ml Oral.Conc) 55 mg PO DAILY [facility] Last Admin: 06/13/23 08:07 Dose: 55 mg Nicotine (Nicotine 21 Mg Patch.Td24) 21 mg TRANSDERMA DAILY PRN PRN Reason: smoking cessation Last Admin: 06/13/23 08:13 Dose: 21 mg Nicotine Polacrilex (Nicotine Polacrilex 2 Mg Gum) 4 mg BUCCAL Q2H PRN PRN Reason: Nicotine Cravings Last Admin: 06/12/23 10:58 Dose: 4 mg Olanzapine (Olanzapine Odt 10 Mg Tab.Rapdis) 10 mg TRANSLINGU BID PRN PRN Reason: agitation Last Admin: 06/13/23 13:30 Dose: 10 mg Olanzapine (Olanzapine 7.5 Mg Tablet) 15 mg PO BEDTIME [facility] Last Admin: 06/13/23 20:49 Dose: 15 mg Olanzapine (Olanzapine 10 Mg Tablet) 10 mg PO DAILY [facility] Last Admin: 06/13/23 08:07 Dose: 10 mg Trazodone HCl (Trazodone Hcl 50 Mg Tablet) 50 mg PO BEDTIME MRX1 PRN PRN Reason: Insomnia Last Admin: 06/13/23 22:42 Dose: 50 mg Allergies Allergies Allergy/AdvReac Type Severity Reaction Status Date / Time Peppers, Jalapeno Allergy Unknown Verified 06/09/23 18:15 Assessment & Plan Assessment & Plan (1) Opioid use disorder, moderate, dependence: Status: Acute Code(s): F11.20 - Opioid dependence, uncomplicated (2) Schizophrenia: Status: Acute Code(s): F20.9 - Schizophrenia, unspecified Plan A 32 years old male with PMH of schizophrenia and Narcotic abuse on Methadone who presented the psychiatry unit for treatment of psychosis. Hx Opioid abuse on Methadone Continue home dose addiction team follow up as needed Toothache post removal of 3 teeth last week on Ibuprofen and Amoxicillin Thank you for the consult. Please contact hospitalist team for any further questions Reason for continued inpatient stay Substantial Risk for: inability to function, rapid decompensation and med/psych decompensation Time Spent With Patient Time: Total time managing care of this patient today ____ minutes.
[2023-06-14] MEDS: Amoxicillin 500 MG CAPSULE PO ×3 (07:07→21:45)
[2023-06-14 07:35] VITALS: BP 108/66; PULSE 96; RESP 18; TEMP 36.6; O2SAT 98
[2023-06-14] MEDS: methADONE HCl 20 MG/2 ML ORAL.CONC 55 MG PO (08:51)
[2023-06-14] MEDS: OLANZapine 10 MG TABLET PO (08:54)
[2023-06-14] MEDS: Nicotine 21 MG PATCH.TD24 TRANSDERMA (09:48)
--- NOTE | 2023-06-14 10:11 | HO.PSYCHPN ---
Subjective Subjective Date of Service: 06/14/23 Reason For Visit: psychosis Subjective Notes: Conditional Voluntary Interim History: Pt reports difficulty falling asleep- RN described him as restless. This morning, pt appears calmer, in that he is not pacing and jumping up and down. He reports voices are less. He denies SI/HI. He is taking medications as prescribed. He reports having cravings to use cocaine and opioids. He wants to know if methadone can be increased. Review of Systems Review of Systems Yes all other systems are reviewed and are negative Mental Status Exam Mental Status Exam Narrative: Appearance: casually groomed, fair hygiene, in NAD Psychomotor: less restless Behavior: cooperative Speech: mostly clear, regular rate/rhythm, volume, spontaneous TP: mostly linear TC: hearing voices, feeling very restless, pacing, tapping feet Mood: better Affect: constricted SI: denies HI: denies VH/AH:less hearing voices telling him to do horrible things Delusions: less persecutory delusions Insight/judgment: fair x 2. Memory/cog: alert, oriented x 3. Diagnostics Vital Signs (24Hr): Vital Signs - 24 hr 06/13/23 20:55 06/14/23 07:35 Temperature 97.1 F 97.8 F Pulse Rate 57 96 Respiratory Rate 18 18 Blood Pressure 121/66 108/66 Pulse Oximetry 97 98 Oxygen Delivery Method Room Air Room Air Labs 06/10/23 08:15 Medications Medications Current Medications Acetaminophen (Acetaminophen 325 Mg Tablet) 650 mg PO Q6H PRN PRN Reason: Headache/Pain Mild Scale (1-3) Last Admin: 06/13/23 22:40 Dose: 650 mg Al Hydroxide/Mg Hydroxide (Magnesium Hydrox/Alum Hydrox 30 Ml Oral.Susp) 30 ml PO Q6H PRN PRN Reason: Heartburn/Nausea Amoxicillin (Amoxicillin 500 Mg Capsule) 500 mg PO Q8H [facility] Last Admin: 06/14/23 07:07 Dose: 500 mg Clonidine HCl (Clonidine Hcl 0.1 Mg Tablet) 0.1 mg PO Q6H PRN; Protocol PRN Reason: anxiety/restlessness Last Admin: 06/12/23 20:02 Dose: 0.1 mg Hydroxyzine HCl (Hydroxyzine Hcl 50 Mg Tablet) 50 mg PO Q6H PRN PRN Reason: Anxiety Last Admin: 06/13/23 20:50 Dose: 50 mg Ibuprofen (Ibuprofen 600 Mg Tablet) 600 mg PO Q6H PRN PRN Reason: Pain, Mild (Pain Scale 1-3) Last Admin: 06/14/23 03:52 Dose: 600 mg Magnesium Hydroxide (Milk Of Magnesia 30 Ml Oral.Susp) 30 ml PO DAILY PRN PRN Reason: Constipation Methadone HCl (Methadone Hcl 20 Mg/2 Ml Oral.Conc) 55 mg PO DAILY [facility] Last Admin: 06/14/23 08:51 Dose: 55 mg Nicotine (Nicotine 21 Mg Patch.Td24) 21 mg TRANSDERMA DAILY PRN PRN Reason: smoking cessation Last Admin: 06/14/23 09:48 Dose: 21 mg Nicotine Polacrilex (Nicotine Polacrilex 2 Mg Gum) 4 mg BUCCAL Q2H PRN PRN Reason: Nicotine Cravings Last Admin: 06/12/23 10:58 Dose: 4 mg Olanzapine (Olanzapine Odt 10 Mg Tab.Rapdis) 10 mg TRANSLINGU BID PRN PRN Reason: agitation Last Admin: 06/13/23 13:30 Dose: 10 mg Olanzapine (Olanzapine 7.5 Mg Tablet) 15 mg PO BEDTIME [facility] Last Admin: 06/13/23 20:49 Dose: 15 mg Olanzapine (Olanzapine 10 Mg Tablet) 10 mg PO DAILY [facility] Last Admin: 06/14/23 08:54 Dose: 10 mg Trazodone HCl (Trazodone Hcl 50 Mg Tablet) 50 mg PO BEDTIME MRX1 PRN PRN Reason: Insomnia Last Admin: 06/13/23 22:42 Dose: 50 mg Allergies Allergies Allergy/AdvReac Type Severity Reaction Status Date / Time Radha Thomas Allergy Unknown Verified 06/09/23 18:15 Assessment & Plan Assessment & Plan (1) Opioid use disorder, moderate, dependence: Status: Acute Code(s): F11.20 - Opioid dependence, uncomplicated (2) Schizophrenia: Status: Acute Code(s): F20.9 - Schizophrenia, unspecified Plan 06/14/2023-> add gabapentin at bedtime which may help with rls. continue current medications. Patient educated on: diagnosis and medication risk/benefits Informed Consent: understands Reason for continued inpatient stay Substantial Risk for: inability to function Time Spent With Patient Time: Total time managing care of this patient today ____ minutes.
--- NOTE | 2023-06-14 14:10 | PC.NURSE ---
Submitted 3 day notice, up on Tuesday06/17/23. Treatment team notified.
[2023-06-14] MEDS: Acetaminophen 325 MG TABLET 650 MG PO (16:02)
[2023-06-14 20:25] VITALS: BP 134/62; PULSE 80; RESP 16; TEMP 35.9; O2SAT 96
[2023-06-14] MEDS: Gabapentin 300 MG CAPSULE PO (20:27)
[2023-06-14] MEDS: OLANZapine 7.5 MG TABLET 15 MG PO (20:27)
[2023-06-14] MEDS: cloNIDine HCL 0.1 MG TABLET PO (20:27)
[2023-06-14] MEDS: traZODone HCL 50 MG TABLET PO (21:45)
[2023-06-14] MEDS: hydrOXYzine HCL 50 MG TABLET PO (21:45)
--- NOTE | 2023-06-14 21:45 | PC.NURSE ---
requesting abx to be given now, wants to go to bed and not be disturbed
[2023-06-15] MEDS: traZODone HCL 50 MG TABLET PO ×3 (02:27→23:47)
[2023-06-15] MEDS: Ibuprofen 600 MG TABLET PO ×2 (02:27→08:49)
[2023-06-15] MEDS: Acetaminophen 325 MG TABLET 650 MG PO ×3 (02:29→18:30)
[2023-06-15] MEDS: Amoxicillin 500 MG CAPSULE PO ×2 (06:28→14:36)
[2023-06-15 07:30] VITALS: BP 113/60; PULSE 75; RESP 16; TEMP 36.1; O2SAT 97
[2023-06-15] MEDS: OLANZapine 10 MG TABLET PO (08:23)
[2023-06-15] MEDS: methADONE HCl 20 MG/2 ML ORAL.CONC 55 MG PO (08:24)
[2023-06-15] MEDS: Nicotine 21 MG PATCH.TD24 TRANSDERMA (10:40)
[2023-06-15] MEDS: hydrOXYzine HCL 50 MG TABLET PO ×2 (11:31→20:33)
--- NOTE | 2023-06-15 17:40 | HO.PSYCHPN ---
Subjective Subjective Date of Service: 06/15/23 Reason For Visit: psychosis Interim History: calm, cooperative, pleasant, hyperverbal. states he is feeling all right. asks for a methadone dosing increase, is referred to speak with his methadone clinic as he will be discharging tuesday on a 3-day notice. denies SI/SIBI. asks about why maira was DCed, which is explained. per staff, 3-day up tuesday. attending some groups. Mental Status Exam Mental Status Exam Narrative: Appearance: casually groomed, fair hygiene, in NAD Psychomotor: less restless Behavior: cooperative Speech: mostly clear, regular rate/rhythm, volume, spontaneous TP: mostly linear TC: hearing voices, feeling very restless, pacing, tapping feet Mood: all right Affect: flexible, full range SI: denies HI: denies VH/AH:less hearing voices telling him to do horrible things Delusions: less persecutory delusions Insight/judgment: fair x 2. Memory/cog: alert, oriented x 3. Diagnostics Vital Signs (24Hr): Vital Signs - 24 hr 06/14/23 20:25 06/15/23 07:30 Temperature 96.6 F L 97 F Pulse Rate 80 75 Respiratory Rate 16 16 Blood Pressure 134/62 113/60 Pulse Oximetry 96 97 Oxygen Delivery Method Room Air Labs 06/10/23 08:15 Medications Medications Current Medications Acetaminophen (Acetaminophen 325 Mg Tablet) 650 mg PO Q6H PRN PRN Reason: Headache/Pain Mild Scale (1-3) Last Admin: 06/15/23 10:40 Dose: 650 mg Al Hydroxide/Mg Hydroxide (Magnesium Hydrox/Alum Hydrox 30 Ml Oral.Susp) 30 ml PO Q6H PRN PRN Reason: Heartburn/Nausea Amoxicillin (Amoxicillin 500 Mg Capsule) 500 mg PO Q8H [facility] Last Admin: 06/15/23 14:36 Dose: 500 mg Clonidine HCl (Clonidine Hcl 0.1 Mg Tablet) 0.1 mg PO Q6H PRN; Protocol PRN Reason: anxiety/restlessness Last Admin: 06/14/23 20:27 Dose: 0.1 mg Gabapentin (Gabapentin 300 Mg Capsule) 300 mg PO BEDTIME [facility] Last Admin: 06/14/23 20:27 Dose: 300 mg Hydroxyzine HCl (Hydroxyzine Hcl 50 Mg Tablet) 50 mg PO Q6H PRN PRN Reason: Anxiety Last Admin: 06/15/23 11:31 Dose: 50 mg Ibuprofen (Ibuprofen 600 Mg Tablet) 600 mg PO Q6H PRN PRN Reason: Pain, Mild (Pain Scale 1-3) Last Admin: 06/15/23 14:36 Dose: 600 mg Magnesium Hydroxide (Milk Of Magnesia 30 Ml Oral.Susp) 30 ml PO DAILY PRN PRN Reason: Constipation Methadone HCl (Methadone Hcl 20 Mg/2 Ml Oral.Conc) 55 mg PO DAILY [facility] Last Admin: 06/15/23 08:24 Dose: 55 mg Nicotine (Nicotine 21 Mg Patch.Td24) 21 mg TRANSDERMA DAILY PRN PRN Reason: smoking cessation Last Admin: 06/15/23 10:40 Dose: 21 mg Nicotine Polacrilex (Nicotine Polacrilex 2 Mg Gum) 4 mg BUCCAL Q2H PRN PRN Reason: Nicotine Cravings Last Admin: 06/12/23 10:58 Dose: 4 mg Olanzapine (Olanzapine Odt 10 Mg Tab.Rapdis) 10 mg TRANSLINGU BID PRN PRN Reason: agitation Last Admin: 06/13/23 13:30 Dose: 10 mg Olanzapine (Olanzapine 7.5 Mg Tablet) 15 mg PO BEDTIME [facility] Last Admin: 06/14/23 20:27 Dose: 15 mg Olanzapine (Olanzapine 10 Mg Tablet) 10 mg PO DAILY [facility] Last Admin: 06/15/23 08:23 Dose: 10 mg Trazodone HCl (Trazodone Hcl 50 Mg Tablet) 50 mg PO BEDTIME MRX1 PRN PRN Reason: Insomnia Last Admin: 06/15/23 02:27 Dose: 50 mg Allergies Allergies Allergy/AdvReac Type Severity Reaction Status Date / Time Radha Thomas Allergy Unknown Verified 06/09/23 18:15 Assessment & Plan Assessment & Plan (1) Opioid use disorder, moderate, dependence: Status: Acute Code(s): F11.20 - Opioid dependence, uncomplicated (2) Schizophrenia: Status: Acute Code(s): F20.9 - Schizophrenia, unspecified Plan 06/14/2023-> add gabapentin at bedtime which may help with rls. continue current medications. 06/15: continue current mgmt. signed 3-day notice, up tuesday. planning to DC tuesday. Reason for continued inpatient stay Substantial Risk for: inability to function and rapid decompensation Time Spent With Patient Time: Total time managing care of this patient today __25__ minutes.
[2023-06-15 18:00] VITALS: BP 126/61; PULSE 73; TEMP 36.1; O2SAT 97
[2023-06-15] MEDS: Gabapentin 300 MG CAPSULE PO (20:33)
[2023-06-15] MEDS: OLANZapine 7.5 MG TABLET 15 MG PO (20:33)
[2023-06-15] MEDS: OLANZapine ODT 10 MG TAB.RAPDIS TRANSLINGU (23:48)
[2023-06-15] MEDS: cloNIDine HCL 0.1 MG TABLET PO (23:48)
[2023-06-16] MEDS: methADONE HCl 20 MG/2 ML ORAL.CONC 55 MG PO (07:42)
[2023-06-16] MEDS: OLANZapine 10 MG TABLET PO (07:42)
[2023-06-16 08:05] VITALS: BP 109/59; PULSE 86; RESP 18; TEMP 36.4; O2SAT 95
[2023-06-16] MEDS: Nicotine 21 MG PATCH.TD24 TRANSDERMA (09:00)
[2023-06-16] MEDS: hydrOXYzine HCL 50 MG TABLET PO ×2 (11:04→20:05)
[2023-06-16] MEDS: Acetaminophen 325 MG TABLET 650 MG PO (12:35)
--- NOTE | 2023-06-16 12:35 | P.DS_ITS ---
DS: Providers Provider Date of Service: 06/16/23 Date of admission: 06/09/23 17:54 Primary care physician: Chad Rodriguez MD Consults: 06/09/23 19:02 Consult to Hospitalist Routine Comment: Consulting Provider: Hospitalist Reason For Exam: admission physical DS: Diagnosis Discharge Diagnosis (1) Opioid use disorder, moderate, dependence: Status: Acute (2) Schizophrenia: Status: Acute DS: Medications Discharge Medications Home Medications: Previous Rx's Medication Instructions Recorded clonidine HCl 0.1 mg tablet 0.1 mg PO BID PRN 06/16/23 Anxiety/Restlessness 30 days #60 tabs gabapentin 300 mg capsule 300 mg PO BEDTIME 30 days #30 caps 06/16/23 hydroxyzine HCl 50 mg tablet 50 mg PO BID PRN Anxiety 30 days 06/16/23 #60 tabs methadone 10 mg/mL oral 55 mg (5.5 mL) PO DAILY #0 mL 06/16/23 concentrate (Methadose) nicotine (polacrilex) 2 mg buccal 2 mg buccal Q2-4H PRN nicotine 06/16/23 lozenge (Nicorette) cravings 30 days #72 ea nicotine 21 mg/24 hr daily 21 mg transdermal DAILY PRN 06/16/23 transdermal patch smoking cessation 28 days #28 ea olanzapine 10 mg tablet 10 mg PO DAILY 30 days #30 tabs 06/16/23 olanzapine 7.5 mg tablet 15 mg (2 x 7.5 mg) PO BEDTIME 30 06/16/23 days #60 tabs trazodone 50 mg tablet 100 mg (2 x 50 mg) PO BEDTIME 06/16/23 Insomnia 30 days #60 tabs Mental Status Exam Mental Status Exam Narrative: Appearance: casually groomed, fair hygiene, in NAD Psychomotor: less restless Behavior: cooperative Speech: clear, regular rate/rhythm, volume, spontaneous TP: linear TC: focussed on discharge. no delusions or paranoia expressed. Mood: good Affect: flexible, full range SI: denies HI: denies VH/AH: denies Insight/judgment: fair x 2. Memory/cog: alert, oriented x 3. Data Data Completed and Pending Completed studies during hospitalization [Text1]: 06/10/23 08:15 Sodium 138 Potassium 4.6 Chloride 104 Carbon Dioxide 27 Anion Gap 12 BUN 12 Creatinine 0.83 Estim Creat Clear Calc TNP Estimated GFR > 60 Fasting Glucose 94 Estimat Average Glucose 100 Hemoglobin A1c % 5.1 Calcium 9.2 Total Bilirubin 0.5 AST 50 H ALT 99 H Alkaline Phosphatase 54 Total Protein 6.5 Albumin 3.8 Triglycerides 78 Cholesterol 144 LDL Cholesterol, Calc 88 HDL Cholesterol 41 DS: Summary Hospital Course Hospital Course: per 06/10 admission note: Mr. Mays is a 32 year-old male with hx of schizophrenia, complicated by opioid and cocaine use disorder. Mr. Mays self presented to [facility] ED reporting hearing voices telling him to do horrible things. In the ED, his utox was positive for fentanyl, cocaine and cannabis. On the unit, pt continued to present as disorganized, very restless, pacing and running up and down the [place]. He continues to report hearing voices, which are bothering him and he asks for medications to stop them. He denies SI/HI. He reports poor sleep. Interview is limited due to pt presenting as very restless, distressed with auditory hallucinations. He does report using cocaine and fentanyl recently. He poor appetite. He reports he has been on abilify for depression however, concern in terms of abilify exacerbating akathisia. Past Psychiatric History: Inpt: unknown details, previous admission but unknown dates OP: none Past medication trials: thorazine, abilify, seroquel Medical Evaluation Reviewed: Yes In ED- cbc grossly unremarkable. CMP- no electrolyte abnormalities, BUN 18, Cr. 0.89. Slight elevation of AST 46, ALT 107 EKG- sinus bradycardia, Qtc 390. [facility] Medical History (Updated 06/10/23 @ 14:59 by Vonnie Main) Opioid use disorder, severe, dependence Family History: none Social History: he does not have stable place to live. Substance History: pt reports using cocaine for several years, unknown amount He also reports using opioids, on methadone. alcohol- denies Trauma History: hx of but no details reported. Precis: Mr. Mays is a 32 year-old male with hx of schizophrenia and opioid/cocaine use disorder who self presented to [facility] ED reporting increase AH telling him to do horrible things. Utox positive for fentanyl, cocaine, cannabis. Pt continues to present restless (which also suspect worsened by akathisia), reporting AH and feeling very distress by them. He also presents with persecutory delusions. We discussed risks, benefits and alternative treatment options. He agrees to stop abilify due to akathisia. WIll start olanzapine 10mg po BID. 06/10: Admit to M3, CV, 15 minutes checks for safety. d/c abilify due to akathisia. start olanzapine 10mg po BID. aftercare planning. 06/11: Patient was asleep when I arrived this evening. Reports being on Abilify for one day but feels it made a difference. He doesnt like the medication he is on now and says he doesn know why it was changed. He does not recall any adverse effects. Uses expletives, is clearly very angry. Does notably speaks in a manner that makes him presents as younger than his age. He also has odd body gesturing upon sitting up and walking. He is restless w irregular hand fidgeting, as well as making incongruent facial expressions. He has been at the meth[facility] clinic for 2 weeks currently at 55 mg he says. He reports cravings, usually after dinner. He intermittenly gets angry about his doctor stopping the ABilify. He reports disrupted sleep, 3-4 times a night 06/12: Patient seen in the early evening. He was again woken from sleep with overexaggerated expression of surprised/terror held for several seconds at a time. . He presents as labile, needy, he wants his ABilify back and often returns to this complaint. Becaomes increasingly more difficult to redirect. Disorganized. Bizarre behavior and attends poorly to discussion. He presents as younger than his age and has irregular hand fidgeting w subtle irregular choreic movements in hands. Abnormal gait and spasmodic posture, relaxing/extending back. Sometimes odd or exaggerated facial expressions, raising eyebrows, at times holds a terrified look for moments at time, or other incongruent facial expressions. 06/13: Patient was visible on the unit. Intrusive, hyperfocused on the ABilify. Approached me abruptly a few times, including while in the nursing station, about his ABilify. Also asked random staff members for his Abilify and was told to speak with the doctor. . He asked to speak with doctor and says He does not recall meeting me before, even after given reminders of our previous encounters over the past few days. He was labile, angry, irritable. Dismissed questions or attempts to redirect conversation to other topics. He presents as younger than his age and has irregular hand fidgeting w subtle irregular choreic movements in hands. Abnormal gait and spasmodic posture, relaxing/extending back. Sometimes odd or exaggerated facial expressions, raising eyebrows, at times holds a terrified look for moments at time, or other incongruent facial expressions. Memory and intellectual impairment, wondering if there's any history of Ccerebral palsy, or tourettes but no vocal tics. or possibly? Huntingtons disease, abnormal body movements, subtle, not grossly impairing but are highly peculiar. ?? No previous patient history in chart 06/14/2023-> add gabapentin at bedtime which may help with rls. continue current medications. 06/15: continue current mgmt. signed 3-day notice, up tuesday. planning to DC tuesday. 06/16: discharged as per plan. stable, safe. Time Spent with Patient Time attestation: Total time managing care of this patient today ____ minutes. Time spent: Greater than 30 minutes Discharge Plan Discharge Anticipated Discharge Date/Time: 06/17/23 11:59 Patient Disposition: Skilled Nursing Discharge Diagnosis: Schizophrenia Opioid Use Disorder on full agonist maintenance Cocaine Use Disorder Referrals: Psych Prescriber: Lynn Gonzalez ([facility]) [Other] - 06/22/23 10:00 am (Appointment is in person at [facility]; once you see Lynn, she can refer you to their therapist (Sarah) and get you a primary care appointment with Dr. Rodriguez if needed. ) Discharge Medications: New nicotine 21 mg/24 hr Patch 24 Hour 21 mg transdermal DAILY PRN (Reason: smoking cessation) 28 Days Qty: 28 0RF nicotine (polacrilex) [Nicorette] 2 mg lozenge 2 mg buccal Q2-4H PRN (Reason: nicotine cravings) 30 Days Qty: 72 0RF clonidine HCl 0.1 mg Tablet 0.1 mg PO BID PRN (Reason: Anxiety/Restlessness) 30 Days Qty: 60 0RF Protocol: Hold for SBP< HOLD for SBP < : 90 trazodone 50 mg Tablet 100 mg PO BEDTIME 30 Days Qty: 60 0RF olanzapine 10 mg Tablet 10 mg PO DAILY 30 Days Qty: 30 0RF hydroxyzine HCl 50 mg Tablet 50 mg PO BID PRN (Reason: Anxiety) 30 Days Qty: 60 0RF olanzapine 7.5 mg Tablet 15 mg PO BEDTIME 30 Days Qty: 60 0RF gabapentin 300 mg Capsule 300 mg PO BEDTIME 30 Days Qty: 30 0RF methadone [Methadose] 10 mg/mL Concentrate 55 mg PO DAILY Qty: 0 0RF Rx Instructions: Partial Fill upon patient request. Discontinued aripiprazole 5 mg tablet 5 mg PO BID Discharge Orders: Discharge Order (Routine); Ordered 06/17/23 Ordered By: Nura Zamora Diet: Advance to usual diet Activity on Discharge: As tolerated Stand Alone Forms: Patient Portal Discharge page, Community Support Care Plan Goals: remain safe, sober, and stable in the outpatient treatment setting Health Concerns: none Plan of Treatment: take medications as prescribed, attend appointments as scheduled Assessment: not at imminent risk of harm to self or others Discharge Date/Time: 06/17/23 10:30
[2023-06-16 20:05] VITALS: BP 137/69; PULSE 78; RESP 18; TEMP 37; O2SAT 98
[2023-06-16] MEDS: traZODone HCL 50 MG TABLET PO (20:05)
[2023-06-16] MEDS: OLANZapine 7.5 MG TABLET 15 MG PO (20:05)
[2023-06-17] MEDS: Acetaminophen 325 MG TABLET 650 MG PO (08:07)
[2023-06-17] MEDS: OLANZapine 10 MG TABLET PO (08:07)
[2023-06-17] MEDS: methADONE HCl 20 MG/2 ML ORAL.CONC 55 MG PO (08:07)
[2023-06-17 08:51] VITALS: BP 123/68; PULSE 78; RESP 16; TEMP 36.8; O2SAT 97
== END 2023-06-17 10:30 | disposition home or self-care (01) | DRG 750 ==
PROVIDERS: Psychiatry & Neurology Psychiatry; Admitting Provider Psychiatry & Neurology Psychiatry; PCP Internal Medicine; Visit Provider Psychiatry & Neurology Psychiatry
DX: F20.9 Schizophrenia, unspecified (principal); F11.20 Opioid dependence, uncomplicated; F17.210 Nicotine dependence, cigarettes, uncomplicated; K08.89 Other specified disorders of teeth and supporting structures; Z71.6 Tobacco abuse counseling; Z79.899 Other long term (current) drug therapy
CPT/HCPCS: 36415; 80053; 80061; 83036

== ENCOUNTER → 2023-06-09 17:54 | Outpatient (BNV) | payer OTHER, SELFPAY | PROVIDERS: Admitting Provider Psychiatry & Neurology Psychiatry; PCP Internal Medicine; Visit Provider Social Worker | DX: F20.1 Disorganized schizophrenia (principal); F11.20 Opioid dependence, uncomplicated; F14.20 Cocaine dependence, uncomplicated | CPT/HCPCS: 99231; 99232; 99233; 99499 ==

== ENCOUNTER → 2023-06-09 17:54 | Outpatient (BNV) | payer MEDICAID, SELFPAY | PROVIDERS: Admitting Provider Psychiatry & Neurology Psychiatry; PCP Internal Medicine; Visit Provider Student in an Organized Health Care Education/Training Program | DX: Z02.2 Encounter for examination for admission to residential institution (principal) | CPT/HCPCS: 99429 ==

== ENCOUNTER 2023-07-07 20:34 | Emergency (ER) | payer MEDICAID, SELFPAY ==
--- NOTE | ~2023-07-07 | CT_ITS ---
EXAMINATION: CT ABDOMEN AND PELVIS WITHOUT IV CONTRAST CLINICAL INFORMATION: Flank pain, left COMPARISON: None TECHNIQUE: Multiple axial images were obtained from the superior aspect of the liver through the pubic symphysis without intravenous contrast. Images were evaluated on independent dedicated 3-D workstation and 3-D images were reconstructed with concurrent radiologist supervision and subsequently interpreted. Oral contrast was not administered. This CT examination was performed using dose optimization techniques as appropriate, variously including the following: *Automated exposure control *Adjustment of mA and/or kV according to patient size (this includes techniques or standardized protocols for targeted exams where dose is matched to indication/reason for exam; i.e. extremities or head) *Use of iterative reconstruction technique DLP: 586 mGy-cm FINDINGS: LUNG BASES: The visualized lung bases are clear. CARDIOMEDIASTINUM: The visualized heart is normal in size without pericardial effusion. No coronary artery calcification. LIVER: Homogeneous in attenuation. Enlarged measuring 22 cm in the midclavicular line.. GALLBLADDER: Noninflamed. BILIARY SYSTEM: No intrahepatic or extrahepatic biliary dilation. PANCREAS: Homogeneous in attenuation. SPLEEN: Scattered calcified granulomas. GENITOURINARY: No contour deforming masses. No perinephric fluid collection. No renal calculi. No hydroureteronephrosis. ADRENAL GLANDS: Unremarkable. REPRODUCTIVE: Coarse prostatic calcifications. GASTROINTESTINAL: The visualized alimentary tract is normal in course. Mild subtle thickening of the sigmoid colonic wall. No diverticular disease. No evidence of obstruction. APPENDIX: The appendix is seen in its entirety and is unremarkable. PERITONEUM: No pneumoperitoneum. No intra-abdominal fluid collection. VASCULATURE: No abdominal aortic aneurysm. LYMPH NODES: No pathologically enlarged abdominal or pelvic lymph nodes. SOFT TISSUES/MUSCULOSKELETAL: There is no acute fracture or significant focal osseous lesion. CT/CT abdomen pelvis wo IV con IMPRESSION: 1. No renal calculi or obstructive uropathy. 2. Subtle short segment thickening of the sigmoid colon without pericolonic inflammatory changes. This may be related to chronic constipation as there is a moderate to severe degree of stool burden.. Fleischner guidelines were followed.
--- NOTE | 2023-07-07 21:14 | ED.ABDPAIN ---
HPI - Abdominal Pain General Chief Complaint: Abdominal Pain Stated Complaint: ULQ pain, feeling exhausted Time Seen by Provider: 07/07/23 21:14 Source: patient Mode of arrival: EMS Limitations: no limitations History of Present Illness HPI narrative: Patient's history of schizophrenia substance abuse fentanyl cocaine came from [facility] where been admitted for last 2 weeks complaining of pain in left no nausea no vomiting pain is going for last 2 days been increases after eating no diarrhea no constipation no fever or chills no history of pancreatitis Related Data Previous Rx's Medication Instructions Recorded clonidine HCl 0.1 mg tablet 0.1 mg PO BID PRN 06/16/23 Anxiety/Restlessness 30 days #60 tabs gabapentin 300 mg capsule 300 mg PO BEDTIME 30 days #30 caps 06/16/23 hydroxyzine HCl 50 mg tablet 50 mg PO BID PRN Anxiety 30 days 06/16/23 #60 tabs methadone 10 mg/mL oral 55 mg (5.5 mL) PO DAILY #0 mL 06/16/23 concentrate (Methadose) nicotine (polacrilex) 2 mg buccal 2 mg buccal Q2-4H PRN nicotine 06/16/23 lozenge (Nicorette) cravings 30 days #72 ea nicotine 21 mg/24 hr daily 21 mg transdermal DAILY PRN 06/16/23 transdermal patch smoking cessation 28 days #28 ea olanzapine 10 mg tablet 10 mg PO DAILY 30 days #30 tabs 06/16/23 olanzapine 7.5 mg tablet 15 mg (2 x 7.5 mg) PO BEDTIME 30 06/16/23 days #60 tabs trazodone 50 mg tablet 100 mg (2 x 50 mg) PO BEDTIME 06/16/23 Insomnia 30 days #60 tabs polyethylene glycol 3350 17 17 g PO DAILY #510 grams 07/07/23 gram/dose oral powder (Miralax) Allergies Allergy/AdvReac Type Severity Reaction Status Date / Time Radha Thomas Allergy Unknown Verified 07/07/23 21:21 Review of Systems Review of Systems Yes all other systems are reviewed and are negative PMFSH Past Medical History Medical History Opioid use disorder, severe, dependence Social History Social History Household Members: None Housing: Homeless Alcohol intake: current Patient Tobacco Use Status: Current someday Tobacco user Tobacco use type: Cigarette Cigarette Packs Per Day: 0.25 Cigarettes Per Day: 5.0 Smoked in Last 30 Days: Yes Use of substances other than those prescribed or required for medical reasons: Yes Substance Use Type: Crack/Cocaine, Heroin and Marijuana Advance Directives: No Advance Directives Information Provided: No service: Yes Sexual orientation: Straight/Heterosexual Physical Exam ED Vital Signs: Vital Signs - 24 hr 07/07/23 21:21 07/07/23 23:56 07/08/23 01:18 Temperature 97.6 F 97.2 F 97.5 F Pulse Rate 77 68 76 Respiratory Rate 12 16 16 Blood Pressure 102/61 106/65 100/56 L Pulse Oximetry 98 97 97 Oxygen Delivery Method Room Air Room Air Room Air BMI result Body Mass Index 30.2 Appearance: Alert. Oriented X3. No acute distress. Sleepy Eyes: PERRLA, no pallor no icterus ENT: Pharynx normal. Oral Mucosa moist Neck: Normal inspection. Neck supple. CVS: Normal heart rate and rhythm. Pulses normal. Respiratory: No respiratory distress. Equal air entry bilateral, no wheezing/rales/rhonchi Abdomen: Soft tenderness left upper quadrant no rebound tenderness Bowel sounds are present, no mass palpable, no CVA tenderness Skin: Skin warm and dry. Normal skin color. Normal skin turgor. Extremities: No lower extremity edema. No calf tenderness Neuro: Oriented X 3. No motor deficit. Medical Decision Making Medical Decision Making [facility] Narrative: Patient nonspecific left upper quadrant pain workup is negative except for constipation discharge patient back to [facility] on stool softener Differential Diagnosis Differential Diagnoses: The differential diagnosis associated with the presentation includes Diverticulitis/kidney stone/constipated Lab Data [facility] Lab Attestation statement: I reviewed the patient's lab results. 07/07/23 21:44 07/07/23 21:44 Labs: Lab Results 07/07/23 07/07/23 07/07/23 Range/Units 21:44 22:26 22:27 WBC 7.9 (4.8-10.8) X10*3/uL RBC 4.46 L (4.60-5.80) X10*6/uL Hgb 12.6 L (14.0-18.0) g/dl Hct 37.7 L (42.0-52.0) % MCV 84.5 (80.0-98.0) fL MCH 28.3 (27.0-33.0) pg MCHC 33.4 (31.0-36.0) g/dl RDW 13.8 (11.0-16.0) % Plt Count 211 (160-400) X10*3/uL MPV 10.6 (9.4-12.4) fL Absolute Nucleated RBC 0.000 (0.0-0.012) X10*3/uL Nucleated RBC % (auto) 0.0 (0.0-0.2) /100WBC Sodium 136 (135-145) mmol/L Potassium 4.6 (3.3-5.1) mmol/L Chloride 99 (96-108) mmol/L Carbon Dioxide 24 (22-29) mmol/L Anion Gap 18 (12-20) BUN 15 (9-16) mg/dL Creatinine 0.90 (0.5-1.4) mg/dL Estim Creat Clear Calc 134.2 Estimated GFR > 60 Random Glucose 100 (60-115) mg/dL Calcium 9.2 (8.4-10.2) mg/dL Lipase 14 (8-78) U/L Urine Color Yellow Urine Appearance Clear Urine pH 7.0 (5.0-9.0) Ur Specific [place] 1.010 (1.005-1.025) Urine Protein Negative (Neg-Trace) mg/dL Urine Glucose (UA) Negative (Negative) mg/dL Urine Ketones Negative (Negative) mg/dL Urine Blood Negative (Negative) Urine Nitrite Negative (Negative) Ur Leukocyte Esterase Negative (Negative) Urine Opiates Screen Not Detected (Not Detect) Urine Fentanyl Screen Not Detected (Not Detect) Ur Barbiturates Screen Not Detected (Not Detect) Ur Phencyclidine Scrn Not Detected (Not Detect) Ur Amphetamines Screen Not Detected (Not Detect) U Benzodiazepines Scrn Not Detected (Not Detect) Urine Cocaine Screen Not Detected (Not Detect) U Marijuana (THC) Screen Not Detected (Not Detect) Independent Interpretation I performed an independent interpretation of an: CT Scan Interpretation: stool ++ Radiology Impression Discussion of test interpretation with radiology: I have reviewed the radiologist's reading. Medications Administered Discontinued Medications Generic Name Dose Route Start Last Admin Trade Name Freq PRN Reason Stop Dose Admin Bisacodyl 10 mg 07/07/23 23:31 07/08/23 01:00 Bisacodyl 5 Mg Tablet. PO 07/07/23 23:32 Not Given ONCE ONE Famotidine 20 mg 07/07/23 21:34 07/07/23 21:48 Famotidine/Pf 20 Mg/2 Ml Vial IVPUSH 07/07/23 21:35 20 mg ONCE ONE Administration Sodium Chloride 1,000 mls @ 999 mls/hr 07/07/23 21:34 07/08/23 01:00 Ns IV 07/07/23 22:34 Infused .Q1H1M ONE Infusion Ketorolac Tromethamine 30 mg 07/07/23 21:34 07/07/23 21:48 Ketorolac Tromethamine 30 Mg/Ml Vial IVPUSH 07/07/23 21:35 30 mg ONCE ONE Administration Magnesium Hydroxide 30 ml 07/07/23 23:31 07/08/23 01:00 Milk Of Magnesia 30 Ml Oral.Susp PO 07/07/23 23:32 Not Given ONCE ONE Discharge Plan Discharge Clinical Impression: Constipation Patient Disposition: Home, Self-Care Instructions: Constipation (ED) Additional Instructions: Drink plenty of fluid MiraLax daily for constipation Prescriptions: New polyethylene glycol 3350 [Miralax] 17 gram/dose powder 17 g PO DAILY Qty: 510 0RF No Action nicotine 21 mg/24 hr Patch 24 Hour 21 mg transdermal DAILY PRN (Reason: smoking cessation) 28 Days Qty: 28 0RF nicotine (polacrilex) [Nicorette] 2 mg lozenge 2 mg buccal Q2-4H PRN (Reason: nicotine cravings) 30 Days Qty: 72 0RF clonidine HCl 0.1 mg Tablet 0.1 mg PO BID PRN (Reason: Anxiety/Restlessness) 30 Days Qty: 60 0RF Protocol: Hold for SBP< HOLD for SBP < : 90 trazodone 50 mg Tablet 100 mg PO BEDTIME 30 Days Qty: 60 0RF olanzapine 10 mg Tablet 10 mg PO DAILY 30 Days Qty: 30 0RF hydroxyzine HCl 50 mg Tablet 50 mg PO BID PRN (Reason: Anxiety) 30 Days Qty: 60 0RF olanzapine 7.5 mg Tablet 15 mg PO BEDTIME 30 Days Qty: 60 0RF gabapentin 300 mg Capsule 300 mg PO BEDTIME 30 Days Qty: 30 0RF methadone [Methadose] 10 mg/mL Concentrate 55 mg PO DAILY Qty: 0 0RF Rx Instructions: Partial Fill upon patient request. Interventions: ED Discharge Assessment Last Done: 07/08/23 04:55
[2023-07-07 21:21] VITALS: BP 102/61; BP 122/60; PULSE 70; PULSE 77; RESP 12; TEMP 36.4; O2SAT 96; O2SAT 98; BMI 30.2
--- NOTE | 2023-07-07 21:34 | MHC.EDTECH ---
Patient is refusing treatment ,RN aware .
[2023-07-07] MEDS: 0.9 % Sodium Chloride 1,000 ML 999 ML IV (21:45)
[2023-07-07] MEDS: Famotidine/PF 20 MG/2 ML VIAL IVPUSH (21:48)
[2023-07-07] MEDS: Ketorolac Tromethamine 30 MG/ML VIAL IVPUSH (21:48)
[2023-07-07 21:51] LABS: Hematocrit 37.7 % (42.0-52.0); Hemoglobin 12.6 g/dl (14.0-18.0); Mean Corpuscular HGB Conc 33.4 g/dl (31.0-36.0); Mean Corpuscular Hemoglobin 28.3 pg (27.0-33.0); Mean Corpuscular Volume 84.5 fL (80.0-98.0); Mean Platelet Volume 10.6 fL (9.4-12.4); Platelet Count 211 X10*3/uL (160-400); Red Blood Count 4.46 X10*6/uL (4.60-5.80); Red Cell Distribution Width 13.8 % (11.0-16.0); White Blood Count 7.9 X10*3/uL (4.8-10.8)
[2023-07-07 22:15] LABS: Anion Gap 18 (12-20); Blood Urea Nitrogen 15 mg/dL (9-16); Calcium 9.2 mg/dL (8.4-10.2); Carbon Dioxide 24 mmol/L (22-29); Chloride 99 mmol/L (96-108); Creatinine Clr Calc Pharmacy 134.2; Estimated Glomerular Filt Rate > 60; Glucose Random 100 mg/dL (60-115); Lipase 14 U/L (8-78); Potassium 4.6 mmol/L (3.3-5.1); Sodium 136 mmol/L (135-145)
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
--- OUTSIDE RECORDS SUMMARY | 2023-07-07 22:16 | XMS_ITS | Continuity of Care Document ---
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 [employer] Name Role Phone Not on Staff, PCP Primary Care Physician Unavail able Encounter [facility] – [place] Date(s): 12/26/22 - 12/27/[address] [address]- Discharge Disposition: A-D/C Walkout Attending Physician: Not on Staff, Attending MD Admitting Physician: Not on Staff, Admitting MD Referring Physician: Not on Staff, Referring MD Allergies, Adverse Reactions, Alerts Substance Reaction Severity Status ibuprofen Active aspirin SWELLING Active Miscellaneous enteral foods hot sauce Active Other Food Allergy 1, 2, 3 A ctive Other Environmental Allergy mace Active 1hot peppers only-- regular peppers and pepper ok! 2Peppers 3Hot Peppers Immunizations Given and Recorded Vaccine Date Status Refusal Reason tetanus/diphtheria/pertussis, acel(Tdap) 07/28/19 Recorded tetanus/diphtheria/pertussis, acel(Tdap) 01/26/08 Given influenza virus vaccine, inactivated 03/09/11 Give n pneumococcal 23-valent vaccine 02/15/11 Given Medications chlorproMAZINE 50 mg oral tablet 1 tablet = 50 mg, By Mouth, 3 times a day, 0 Refills, Maintenance, 07/06/22 1:58:00 EST, Tablet, Partial fill upon patient request if the prescription is for a schedule II opioid drug. Start Date: 07/06/22 Status: Ordered hydrOXYzine pamoate 50 mg oral capsule 1 capsule = 50 mg, By Mouth, 3 times a day, PRN as needed for anxiety Start Date: 07/06/22 Status: Ordered naloxone 4 mg/0.1 mL nasal spray ADMINISTER 1 SPRAY INTO ONE NOSTRIL X1 FOR OPIOID OVERDOSE Start Date: 07/06/22 Status: Ordered naltrexone 50 mg oral tablet 1 tablet = 50 mg, By Mouth, Daily Start Date: 07/06/22 Status: Ordered QUEtiapine 100 mg oral tablet 100 mg, 1, tablet, By Mouth, 3 times a day Start Date: 07/06/22 Status: Ordered traZODone 100 mg oral tablet 100 mg, 1, tablet, By Mouth, Daily at bedtime Start Date: 07/06/22 Status: Ordered Problem List Condition Confirmation Course Effective Dates Status Health St atus Informant ADHD Confirmed 03/11/11 Active Antisocial Personality Disorder Confirmed 03/11/11 Active Bipolar disorder NOS Confirmed 03/11/11 Active Cellulitis and abscess of upper extremity Confirmed Active IV drug abuse Confirmed Active Open Wound of Chest (Wall), without Mention of Complication Confirmed 12/17/10 Active TBI (traumatic brain injury) Confirmed Active Traumatic Pneumothorax with Open Wound Into Thorax Confirmed 12/05/10 Active Traumatic Pneumothorax with Open Wound Into Thorax Confirmed 12/17/10 Active Hepatitis C Confirmed Active Vital Signs Most recent to oldest [Reference Range]: 1 Height 178 cm (12/26/22 11:54 PM) Oxygen Saturation [94-100 %] 100 % (12/26/22 11:54 PM) Pulse Rate [55-90 bpm] 55 bpm (12/26/22 11:54 PM) Blood Pressure [90-138/55-84 mm Hg] 114/ 64mm Hg (12/26/22 11:54 PM) Temperature [96.8-100.4 DegF] 97.5 DegF (12/26/22 11:54 PM) Mode of Delivery (Oxygen) Room air (12/26/22 11:54 PM) Blood pressure sites Arm, right (12/26/22 11:54 PM) Temperature Route Oral (12/26/22 11:54 PM) Dry Weight 73 kg (12/26/22 11:54 PM) Dry Weight Obtained Via Patient/family s tated (12/26/22 11:54 PM) Social History Social History Type Response Smoking Status 5-9 cigarettes (betw een 1/4 to 1/2 pack)/day in last 30 days entered on: 07/17/20 Sex Male Patient Care team information Care Team Personnel Name: Yanet Richardson RN Position: [facility] RN Member Role: Primary Care Nurse Name: Analy Johansen RN Position: [facility] RN Member Role: Primary Care Nurse Name: Thuy Houston RN Position: [facility] HBO Wound Member Role: Primary Care Nurse Name: Michael Freitas RN Position: [facility] RN Member Role: Primary Care Nurse Name: Antwan Garcia RN Position: [facility] RN Member Role: Primary Care Nurse Name: Jesse Dumas RN Position: [facility] RN Member Role: Primary Care Nurse Name: Margaux Casey RN Position: [facility] AMB Nurse Member Role: Primary Care Nurse Name: Roberth Catalan RN Position: [facility] RN Member Role: Primary Care Nurse Name: Not on Staff, PCP Position: [facility] Physician (General Medicine) Member Role: PCP Name: Sarah Coffey RN Position: [facility] RN Member Role: Primary Care Nurse Name: Yamini Bang RN Position: [facility] RN Member Role: Primary Care Nurse Name: Troy Salinas RN Position: [facility] RN Member Role: Primary Care Nurse Address: Address: [address] [place] [id number]- Name: Jennifer Millan RN Position: [facility] SN RN Member Role: Primary Care Nurse Name: Daly Meadows RN Position: [facility] [employer] Member Role: Primary Care Nurse Care Team Related Persons Name: EREN CONLEY Address: [address] [place] [address] Name: AMARA JIN Address: [place] [address]
--- OUTSIDE RECORDS SUMMARY | 2023-07-07 22:16 | XMS_ITS | Continuity of Care Document ---
Author Name Unknown Organization [facility] ter Address [address] [place] [id number]- Care Team Providers Care Analysis Evaluator Name Role Phone Sidney TORREZ, Noemi Primary Care Physician Encounter [facility] [place] [place] Date(s): 08/30/20 - 08/30/[address] [address]- Encounter Diagnosis Arm pain(Final) - 08/30/20 IV drug user(Final) - 08/30/20 Abscess(Final) - 08/30/20 Discharge Disposition: A-D/C Home Attending Physician: Girish Flores MD Admitting Physician: Girish Flores MD Referring Physician: Not on Staff, Referring MD Allergies, Adverse Reactions, Alerts Substance Reaction Severity Status ibuprofen Active aspirin SWELLING Active Motrin Active Miscellaneous enteral foods hot sauce Active Other Food Allergy 1, 2, 3 A ctive Other Environmental Allergy mace Active 1hot peppers only-- regular peppers and pepper ok! 2Peppers 3Hot Peppers Immunizations Given and Recorded Vaccine Date Status Refusal Reason influenza virus vaccine, inactivated 03/09/11 Give n pneumococcal 23-valent vaccine 02/15/11 Given tetanus/diphtheria/pertussis, acel(Tdap) 01/26/08 Given Medications Augmentin 875 mg-125 mg oral tablet 1 tablet, By Mouth, Every 12 hours, for 7 days, # 14 tablet, 0 Refills, Acute 08/31/20 11:52:00 EDT, 08/24/20 11:52:00 EDT, Tablet, [id number], Partial fill upon patient request if the prescription is for a schedule II opioid drug., 180, cm, 0... Start Date: 08/24/20 Stop Date: 08/31/20 Status: Ordered hydrOXYzine pamoate 25 mg oral capsule 2 capsule = 50 mg, By Mouth, 3 times a day, PRN Anxiety, for 7 days, # 30 capsule, 0 Refills, Acute08/31/20 11:49:00 EDT, 08/24/20 11:49:00 EDT, Capsule, [id number], Partial fill upon patient request if the prescription is for a schedule II o... Start Date: 08/24/20 Stop Date: 08/31/20 Status: Ordered hydrOXYzine pamoate 50 mg oral capsule = 50 mg, By Mouth, 3 times a day, PRN Anxiety, # 90 capsule, 0 Refills, Maintenance, 08/24/20 11:49:00 EDT, Capsule, [id number], Partial fill upon patient request if the prescription is for aschedule II opioid drug., 180, cm, 08/23/20 15:52:0... Start Date: 08/24/20 Status: Ordered methadone 10 mg oral tablet 4.5 tablet = 45 mg, By Mouth, Daily, 0 Refills, Maintenance, 08/24/20 11:49:00 EDT, Tablet, Partialfill upon patient request if the prescription is for a schedule II opioid drug. Start Date: 08/24/20 Status: Ordered SEROquel XR 200 mg oral tablet, extended release 400 mg, 2, tablet, By Mouth, Daily at bedtime, # 60 tablet, Refills 0, Tot. Refills 0, Maintenance,08/24/20 11:49:00 EDT, Route to Pharmacy Electronically, [id number], Partial fill upon patient request if the prescription is for a schedule II... Start Date: 08/24/20 Status: Ordered traZODone 50 mg oral tablet 50 mg, 1, tablet, By Mouth, 2 times a day, # 14 tablet, Refills 0, Tot. Refills 0, Maintenance, 08/24/20 11:48:00 EDT, Route to Pharmacy Electronically, [id number], Partial fill upon patient request if the prescription is for a schedule II opi... Start Date: 08/24/20 Stop Date: 08/31/20 Status: Ordered Problem List Condition Effective Dates Status Health Status Inform ant ADHD(Confirmed) 03/11/11 Active Antisocial Personality Disorder(Confirmed) 03/11/11 Active Bipolar disorder NOS(Confirmed) 03/11/11 Active Cellulitis and abscess of up per extremity(Confirmed) Active IV drug abuse(Confirmed) Active Open Wound of Chest (Wall), without Mention of Complication(Confirmed) 12/17/10 Active TBI (traumatic brain injury)(Confirmed) Active Traumatic Pneumothorax with Open Wound Into Thorax(Confirmed) 12/05/10 Active Traumatic Pneumothorax with Open Wound Into Thorax(Confirmed) 12/17/10 Active Hepatitis C(Confirmed) Active Vital Signs Most recent to oldest [Reference Range]: 1 2 3 Oxygen Saturation [94-100 %] 100 % (08/30/20:22 AM) 100 % (08/30/20:17 AM) Pulse Rate [55-90 bpm] 62 bpm (08/30/20:27 AM) 72 bpm (08/30/20:22 AM) 72 bpm (08/30/20:17 AM) Blood Pressure [90-138/55-84 mm Hg] 110/62mm Hg (08/30/20: AM) 110/53mm Hg (08/30/20:22 AM) 128/70mm Hg (08/30/20 2:17 AM) Respiratory Rate [16-30 br/min] 18 br/min (08/30/20:27 AM) 16 br/min (08/30/20:22 AM) 16 br/min (08/30/20 2:17 AM) Temperature [96.8-100.4 DegF] 97.8 DegF (08/30/20:22 AM) 98.4 DegF (08/30/20:17 AM) Mode of Delivery (Oxygen) Room air (08/30/20 5:22 AM) Room air (08/30/20 2:17 AM) Blood pressure sites Arm, right (08/30/20 7:27 AM) Arm, right (08/30/20:22 AM) Arm, right (08/30/20:17 AM) Temperature Route Oral (08/30/20 5:22 AM) Oral (08/30/20 2:17 AM) Social History Social History Type Response Smoking Status 5-9 cigarettes (betw een 1/4 to 1/2 pack)/day in last 30 days entered on: 07/17/20 Sex Male
--- OUTSIDE RECORDS SUMMARY | 2023-07-07 22:16 | XMS_ITS | Continuity of Care Document ---
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 ??Reports last alcohol use 7 years ago ??Previous cultures have grown E. coli, staph, strep, and bacteroids S/P??I&D in ED. Blood cs growing Gram positive cocci (Gemella species ) Wound CS STREPTOCOCCUS INTERMEDIUS Still there is area of induration, likely has more collection ?? He is noted to have area of fluctuance at inferior portion of wound. Surgery consulted and recommended??incision and drainage and proper exploration and wash out in theOR,? Plan: NPO for OR today ??Will continueUnasyn 3g IV every 6 hours Follow??susceptibility testing on the Gemella species -Follow repeat blood cultures -Once improves, will??transition to Augmentin 875mg PO TID upon discharge to complete antibiotic course ? 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 Plan ??-Continue chlorpromazine 50 mg 3 times daily as needed for nausea ??-Continue hydroxyzine 50 mg 3 times daily as needed anxiety ??-Continue quetiapine 100 mg 3 times daily ??-Continue trazodone 100 mg p.m. ?? Code: Full ??DVT prophylaxis: enoxaparin ??Diet: regular ? Discharge Planning:? * Janes CHILD, September: PERFORM, MODIFY, SIGN, VERIFY Event Display: Progress Note Hospital Authored Date: [id number] Patient: JOSE MAYS [facility]: [id number] Age: 31 years Sex: Male : 1990 Associated Diagnoses: None Author: Janes CHILD, September Subjective No acute events overnight. Patient is very frustrated this morning about missing breakfast before the OR. Threatened to refuse surgery if the case went late in the day. Endorsing significant pain in his right leg at the site of the abscess, frustrated that the previous bedside I&D was not successful. Denies fevers/chills, chest pain, SOB, nausea/vomiting. Objective Vital Signs Temperature 97.5 (05:12) Systolic Blood Pressure 102 (05:12) Diastolic Blood Pressure 55 (05:12) Pulse 51 (05:12) SpO2 98 (05:12) Respiratory Rate 18 (08:39) Physical Exam Gen: No acute distress, awake and conversant Neuro: Alert and oriented x3 Head: Normocephalic, atraumatic Cardiac: RRR, no murmurs, no gallops Resp: CTAB Abdomen: Soft, non-distended, no tenderness or guarding Ext: R medial lower leg with area of erythema and focal fluctuance. No active drainage, extremely tender to palpation. Small overlying scab Skin: No rashes, warm and well perfused Impression and Plan Jose Mays is a 31-year-old male with h/o of polysubstance use including IVDU, untreated chronic hepatitis C, schizoaffective disorder, neurocognitive disorder from a TBI, multiple abscesses requiring I&D procedures who presented to [facility] ED with c/o worsening pain in LE at an abscess site. Upon presentation, he was noted to be febrile with to fever 102. Labs with leukocytosis 13K. He underwent xray and CT imaging revealed findings concerning for left calf abscess with surrounding cellulitis, no osteomyelitis appreciated. He did undergo I&D of the calf abscess in the ED07/05. He wasadmitted to medical service for ongoing management of LLE infection. He was initially placed on vanco and transitioned to unasyn via ID recommendations after Strep intermedius noted on culture and 1 out of 2 blood cultures revealing Gemella species. Upon inspection of LE wound, the primary team noted worsening wound and consulted ACS/EGS surgery for evaluation. He is noted to have area of fluctuance at inferior portion of wound. He would benefit from an incision and drainage and proper exploration and wash out in the OR, given failed bedside I&D x1. He is added on to the OR schedule for today. Plan: Added on to OR schedule today for RLE I&D NPO/IVF, consent in the chart Continue unasyn, as per ID. Pain management as per primary team Follow up blood and wound cultures , anticipate new wound culture Lovenox 40mg daily Continue care as per primary team Pt discussed with Dr. Dumont Please page ACS/EGS [id number] with questions or concerns Note * Flaquita Nunn RN: PERFORM Event Display: Discharge/Transfer Note Hospital Authored Date: [id number] Nursing Discharge Note Entered On: 07/10/2022 17:09 EST Performed On: 07/10/2022 17:08 EST by Flaquita Nunn RN Nursing Discharge Note 2 Discharge Time : 07/10/2022 15:30 EST Discharge Level of Care at Discharge : Left Against Medical Advice Patient Left Unit Via : Ambulatory Patient Accompanied Off Unit with : Other: left AMA DC Instructions Provided & Signed by Pt : No Patient Understands D/C Instructions : Unable Patient Instructions Discharge Signed : No Did Pt have Specialty Bed or Wound Vac : No Flaquita Nunn RN - 07/10/2022 17:08 EST * Emily CHILD, Karl Cordero: PERFORM Event Display: Discharge/Transfer Note Hospital Authored Date: [id number] Patient: ??JOSE MAYS ? Age:??31 Years?Sex:??Male?:??1990?? Patient Information Discharge Location: S64 Primary Care Physician: Noemi Little NP Admit Date/Time: 07/05/22 23:39 Discharge Disposition Discharge Disposition: ?? Discharge Diagnosis Abscess of left lower leg (L02.416) Cellulitis of left lower leg (L03.116) IV drug user (F19.90) Sepsis (A41.9) ?? Allergies Allergies ?(Active and Proposed Allergies Only) Other Environmental Allergy? (Severity: Unknown severity, Onset: Unknown) ?Reactions: mace Other Food Allergy? (Severity: Unknown severity, Onset: Unknown) ?Comments: hot peppers only-- regular peppers and pepper ok! ?Comments: Peppers ?Comments: Hot Peppers ibuprofen? (Severity: Unknown severity, Onset: Unknown) aspirin? (Severity: Unknown severity, Onset: Unknown) ?Reactions: SWELLING Miscellaneous enteral foods? (Severity: Unknown severity, Onset: Unknown) ?Reactions: hot sauce Motrin? (Severity: Unknown severity, Onset: Unknown) ? Future Appointments Tuesday 7:00 PM EST ?? Where: [facility] Hospital Course ??Left AMA ?? Objective Assessment and Plan Assessment:??31 y/o??male with past medical history of homelessness, polysubstance use (cocaine, fentanyl, and marijuana), hepatitis C untreated, schizoaffective disorder, neurocognitive disorder secondary to traumatic brain injury, and recurrent admissions for I&D of skin and soft tissue infection secondary to IV drug use presents for left lower extremity wound. ?? Left lower extremity skin and soft tissue infection Abscess Status post I&D ??IV polysubstance use including marijuana, cocaine, fentanyl ??Homelessness ??Patient reports last using IV fentanyl and cocaine around 1 day dinnertime prior to admission ??Reports last alcohol use 7 years ago ??Previous cultures have grown E. coli, staph, strep, and bacteroids S/P??I&D in ED. Blood cs growing Gram positive cocci (Gemella species ) Wound CS STREPTOCOCCUS INTERMEDIUS Still there is area of induration, likely has more collection ?? He is noted to have area of fluctuance at inferior portion of wound. Surgery consulted and recommended??incision and drainage and proper exploration and wash out in theOR,? Plan: NPO for OR today ??Will continueUnasyn 3g IV every 6 hours Follow??susceptibility testing on the Gemella species -Follow repeat blood cultures -Once improves, will??transition to Augmentin 875mg PO TID upon discharge to complete antibiotic course ? 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 Plan ??-Continue chlorpromazine 50 mg 3 times daily as needed for nausea ??-Continue hydroxyzine 50 mg 3 times daily as needed anxiety ??-Continue quetiapine 100 mg 3 times daily ??-Continue trazodone 100 mg p.m. ?? Code: Full ??DVT prophylaxis: enoxaparin ??Diet: regular ? Discharge Planning:? Vital Signs?? Temperature: 97.2 DegF (07/10/22 14:09:00) Temperature Route: Oral (07/10/22 14:09:00) Pulse Rate:??51 bpm??Low (07/10/22 14:09:00) Respiratory Rate: 16 br/min (07/10/22 14:09:00) Systolic Blood Pressure: 106 mm Hg (07/10/22 14:09:00) Diastolic Blood Pressure: 57 mm Hg (07/10/22 14:09:00) Blood pressure sites: Arm, left (07/10/22 14:09:00) Mean Arterial Pressure: 73 mm Hg (07/10/22 14:09:00) Pulse Pressure: 49 mm Hg (07/10/22 14:09:00) Oxygen Saturation: 100 % (07/10/22 14:09:00) Mode of Delivery (Oxygen): Room air (07/10/22 14:09:00) Early Warning Score: 2 (07/10/22 14:10:09) ? . Physical Exam Pending Results Blood Culture ordered on 07/07/2022 Blood Culture #2 ordered on 07/07/2022 Creatinine ordered on 07/08/2022 Hold Gel Top Tube ordered on 07/07/2022 Hold Lavender Tube (BB) ordered on 07/05/2022 Home Health Face to Face ^HomeHealthFTF Results Discharge Labs BLOOD COUNT & DIFF WBC 5.6 k/mm3 ()?? 07/08/2022 08:47 RBC 4.96 m/mm3 ()?? 07/08/2022 08:47 Hgb 13.6 Gm/dL (Low)?? 07/08/2022 08:47 Hct 43.6 % ()?? 07/08/2022 08:47 MCV 87.9 femtoliters ()?? 07/08/2022 08:47 MCH 27.4 pg ()?? 07/08/2022 08:47 MCHC 31.2 g/dL (Low)?? 07/08/2022 08:47 Platelet Count 278 k/mm3 ()?? 07/08/2022 08:47 RDW-SD 45.1 femtoliters ()?? 07/08/2022 08:47 MPV 10.2 femtoliters ()?? 07/08/2022 08:47 Nucleated RBC (Automated) 0.0 #/100 WBC'S ()?? 07/08/2022 08:47 Abs. NRBC 0.0 k/mm3 ()?? 07/08/2022 08:47 Abs. Neut 2.8 k/mm3 ()?? 07/08/2022 08:47 Abs. Lymph 2.2 k/mm3 ()?? 07/08/2022 08:47 Abs. Peach 0.4 k/mm3 ()?? 07/08/2022 08:47 Abs. Eo 0.1 k/mm3 ()?? 07/08/2022 08:47 Abs. Baso 0.0 k/mm3 ()?? 07/08/2022 08:47 Neut % 50.6 % ()?? 07/08/2022 08:47 Lymph % 39.5 % ()?? 07/08/2022 08:47 Peach % 7.3 % ()?? 07/08/2022 08:47 Eos % 1.8 % ()?? 07/08/2022 08:47 Baso % 0.4 % ()?? 07/08/2022 08:47 Imm Gran 0.4 % ()?? 07/08/2022 08:47 Abs. Imm Gran 0.0 k/mm3 ()?? 07/08/2022 08:47 ?? CHEM GENERAL Sodium 139 mmol/L ()?? 07/08/2022 08:47 Potassium 4.8 mmol/L ()?? 07/08/2022 08:47 Chloride 104 mmol/L ()?? 07/08/2022 08:47 Bicarbonate Level 27 mmol/L ()?? 07/08/2022 08:47 Anion Gap 8 ()?? 07/08/2022 08:47 Glucose Level 90 mg/dL ()?? 07/08/2022 08:47 BUN 11 mg/dL ()?? 07/08/2022 08:47 Creatinine-Blood 0.9 mg/dL ()?? 07/10/2022 01:57 Estimated GFR Creatinine 118 ML/MIN/1.73 M2 ()?? 07/10/2022 01:57 Calcium 8.8 mg/dL ()?? 07/06/2022 05:10 Magnesium 2.0 mg/dL ()?? 07/08/2022 08:47 Protein, Total 7.1 Gm/dL ()?? 07/05/2022 20:17 Albumin 4.4 Gm/dL ()?? 07/05/2022 20:17 AG Ratio 1.6 ()?? 07/05/2022 20:17 Alkaline Phosphatase 92 units/L ()?? 07/05/2022 20:17 AST (SGOT) 26 units/L ()?? 07/05/2022 20:17 ALT (SGPT) 31 units/L ()?? 07/05/2022 20:17 Bilirubin, Total 0.5 mg/dL ()?? 07/05/2022 20:17 ?? HEME OTHER Hold Lavender Top SPECIMEN DISCARDED AFTER 24 HOURS. ()?? 07/07/2022 21:24 Hold Blue Top SPECIMEN DISCARDED AFTER 4 HOURS. ()?? 07/05/2022 20:17 ?? MISC. CHEMISTRY Hold Green Top SPECIMEN DISCARDED AFTER 1 WEEK ()?? 07/05/2022 20:17 ? TOXICOLOGY/TDM Vancomycin Level, Trough 7.8 mg/L (Low)?? 07/07/2022 10:55 ? VIROLOGY Influenza A PCR NEGATIVE ()?? 07/06/2022 01:45 Influenza B PCR NEGATIVE ()?? 07/06/2022 01:45 RSV PCR NEGATIVE ()?? 07/06/2022 01:45 COVID-19 PCR Specimen Source NASAL ()?? 07/08/2022 05:25 COVID-19 PCR Result NEGATIVE ()?? 07/08/2022 05:25 ? Microbiology ?? Blood Culture?? Completed?? Source: Blood Body Site: ?? Collected Dt/Tm: 07/05/2022 19:21 Last Updated Dt/Tm: 07/05/2022 19:21 ?SPECIMEN DESCRIPTION : BLOOD RT ACSPECIAL REQUESTS : CRITICAL VALUE CALLED AND VERIFIED BY READBACK FOR: GRAM SMEAR GRAM ? POSITIVE COCCI TO EW EN 300989 ON 07/06/2022 AT 1845 BY TECH 901CULTURE : GEMELLA SPECIES ??SUSCEPTIBILITY TESTING NOT ROUTINELY PERFORMED ON THIS ? ISOLATE. IF SUSCEPTIBILITY IS REQUIRED ON THIS ISOLATE PLEASE CONTACT ? THE LABORATORY (EXT [id number]) WITHIN 72 HOURS OF RECEIPT OF REPORT. ?Further identification to follow. No target organisms detected using the ? Fliqz BCID panel. This panel includes 33 bacterial and fungal ? targets and 10 resistance mechanisms.REPORT STATUS : FINAL 07/10/2022ORGANISM ? GEMELLA SPECIES ??SUSCEPTIBILITY TESTING NOT ? ROUTINELY PERFORMED ON THIS ISOLATE. IF SUSCEPTIBILITY IS REQUIRED ON THIS ISOLATE PLEASE CONTACT THE LABORATORY(EXT [id number]) WITHIN 72 HOURS OF RECEIPT OF REPORT.METHOD ? ANO2 ETEST GRADIENT STRIP (MCG/ML)METRONIDAZOLE ?RESISTANTCLINDAMYCIN ?SUSCEPTIBLEPENICILLIN ? SUSCEPTIBLE Blood Culture #2?? Completed?? Source: Blood Body Site: ?? Collected Dt/Tm: 07/05/2022 19:21 Last Updated Dt/Tm: 07/05/2022 19:21 ?SPECIMEN DESCRIPTION : BLOOD ??NO SITESPECIAL REQUESTS : NONECULTURE : LACTOBACILLUS SPECIES NST NOTE THIS IS A CORRECTED REPORT ?GRAM POSITIVE COCCI NOTE THIS REPORT HAS BEEN CORRECTED. ?PLEASE DISREGARD THE RESULT OF GRAM POSITIVE COCCI. ?CORRECTED REPORT PHONED TO MELANI CHOI,07/10 AT 1530 BY TECH 155REPORT STATUS : FINAL 07/10/2022 Wound Superficial Culture W/ Gram Smear?? Completed?? Source: Swab Body Site: Leg Left Collected Dt/Tm: 07/05/2022 22:15 Last Updated Dt/Tm: 07/05/2022 22:16 ?SPECIMEN DESCRIPTION : SWAB LEG LTSPECIAL REQUESTS : NONEGRAM STAIN : 4+ POLYMORPHONUCLEAR LEUKOCYTES ?1+ GRAM POSITIVE COCCI ?2+ GRAM NEGATIVE RODSCULTURE : 4+ STREPTOCOCCUS INTERMEDIUS ??This isolate was identified using Maldi-TOF ? system SUSCEPTIBILITY TESTING NOT ROUTINELY PERFORMED ON THIS ISOLATE. ??Please consult the laboratory ([phone]) within 7 days ifmore definiti ?ve studies are clinically indicated.REPORT STATUS : FINAL 07/08/2022 COVID-19, RSV, and Flu A/B, Rapid PCR?? Completed?? Source: Nasal Body Site: Nose Collected Dt/Tm: 07/05/2022 23:38 Last Updated Dt/Tm: 07/06/2022 03:00 COVID-19 (2019 Novel Coronavirus) PCR?? Completed?? Source: Nasal Body Site: Nose Collected Dt/Tm: 07/08/2022 05:16 Last Updated Dt/Tm: 07/08/2022 18:23 ? _ minutes spent on discharge XR Foot - left GE 3 Views * [facility] , CIS S: TRANSCMAU Moraes MD, Guru: VERIFY Clifton Bhakta DO: SIGN Event Display: Result: Authored Date: [id number] Foot Min 3 Views Left, 3 views REASON: Infection; Clinical Question(s): Osteomyelitis Hx of Present Illness: Pt injected cocaine to inner lower left leg 4 days ago. Leg has been swollen, red and tender. Pt has a temp. Last used a bag of cocaine before coming to ED; COMPARISON: Left foot radiograph dated 01/16/2020. FINDINGS: No fractures or dislocation. Stable circumscribed lucency in the proximal phalanx of the great toe,present since 2011. Unchanged contour abnormality of the talus anteriorly along the dorsal surface. No arthritic changes. Normal soft tissues. IMPRESSION: No acute abnormality. No radiographic evidence of osteomyelitis. I have personally reviewed the images and I agree with this report. WSN: [id number] Ordering Physician: Carlos Hussein Dictated By: Clifton Bhakta DO Dictated Date/Time: 07/05/22 9:01 pm Reviewed By: Guru Moraes MD Signed By: Guru Moraes MD Signed Date/Time: 07/05/22 9:06 pm Transcribed By: PINO Transcribed Date/Time: 07/05/22 8:56 pm XR Tibia and Fibula - left 2 Views * [facility] , CIS S: TRANSCRIBE Guru Moraes MD: VERIFY Clifton Bhakta DO: SIGN Event Display: Result: Authored Date: [id number] Tibia/Fibula 2 Views Left REASON: Infection; Clinical Question(s): Osteomyelitis Hx of Present Illness: Pt injected cocaine to inner lower left leg 4 days ago. Leg has been swollen, red and tender. Pt has a temp. Last used a bag of cocaine before coming to ED; COMPARISON: Left knee radiographs 06/04/2022 FINDINGS: No fractures or bone lesions. Visualized joints are normal. Focal thickening of the soft tissues of the medial calf distally, similar in location to the previously seen abnormality on radiograph 02/06/2021. There is surrounding focal subcutaneous edema. IMPRESSION: Focal thickening subcutaneous tissue of the medial calf distally with surrounding edema, correlate for clinical signs of cellulitis and abscess. No fracture. No radiographic evidence of osteomyelitis. I have personally reviewed the images and I agree with this report. WSN: [id number] Ordering Physician: Carlos Hussein Dictated By: Clifton Bhakta DO Dictated Date/Time: 07/05/22 9:04 pm Reviewed By: Guru Moraes MD Signed By: Guru Moraes MD Signed Date/Time: 07/05/22 9:09 pm Transcribed By: PINO Transcribed Date/Time: 07/05/22 9:[address] Lower extremity - left W contrast IV * [facility] , CIS S: TRANSCRIBE Rc Jaeger MD W: VERIFY Event Display: Result: Authored Date: [id number] CT Ext Lower W/ Contrast Left Reason: IVDU. Abscess. Evaluate for osteomyelitis. TECHNIQUE: Helical CT with contrast formatted in 3 planes. Weight-based protocol using automatic tube modulation was used to optimize exposure parameters. 100 mL Omnipaque 300 intravenous contrast material was administered. CTDIvol Body: 19.80 mGy, DLP Body: 1103 mGy*cm. COMPARISONS: None FINDINGS: Bones and joints: No fracture or dislocation is present. No erosions, productive changes or abnormal calcifications are noted. Talar beak noted. No CT evidence of coalition. Soft Tissues: Physiologic amount of knee joint fluid and trace Wilson's cyst. Skin thickening and subcutaneous edema distal posterior medial calf where there is a rim-enhancing fluid measuring 3.6 x 1.7 x 1.0 cm, series 306 image 174. No discrete intramuscular abscess. No tibiotalar joint effusion. IMPRESSION: Cellulitis and small abscess subcutaneous fat of the distal medial calf. No CT evidence of osteomyelitis. Physiologic amount of knee joint fluid and trace Wilson's cyst. No tibiotalar joint effusion. WSN: [id number] Ordering Physician: Mary Jessica Dictated By: Rc Jageer MD Dictated Date/Time: 07/06/22 9:07 am Reviewed By: Rc Jaeger MD Signed By: Rc Jaeger MD Signed Date/Time: 07/06/22 9:07 am Transcribed By: PINO Transcribed Date/Time: 07/06/22 9:02 am Patient Care team information Care Team Personnel Name: Trudi Cohen RN Position: S RN Member Role: Primary Care Nurse Name: Naya Garg RN Position: S RN Member Role: Primary Care Nurse Name: Analy Johansen RN Position: S RN Member Role: Primary Care Nurse Name: Thuy Houston RN Position: S HBO Wound Member Role: Primary Care Nurse Name: Michael Freitas RN Position: S RN Member Role: Primary Care Nurse Name: Antwan Garcia RN Position: S RN Member Role: Primary Care Nurse Name: Noemi Little NP Position: Reference Physician Member Role: PCP Address: Address: [address] [place] [address] Name: Jesse Dumas RN Position: S RN Member Role: Primary Care Nurse Name: Jacinto RADFORD, Margaux Caceres Position: [facility] AMB Nurse Member Role: Primary Care Nurse Name: Roberth Catalan RN Position: [facility] RN Member Role: Primary Care Nurse Name: Sarah Coffey RN Position: [facility] RN Member Role: Primary Care Nurse Name: Yamini Bagn RN Position: [facility] RN Member Role: Primary Care Nurse Name: Yanet Warren RN Position: [facility] RN Member Role: Primary Care Nurse Name: Troy Salinas RN Position: [facility] RN Member Role: Primary Care Nurse Address: Address: [address] [place] [id number] Name: Jennifer Millan RN Position: [facility] RN Member Role: Primary Care Nurse Name: Daly Meadows RN Position: [facility] Hospital Needle Loom Tender Member Role: Primary Care Nurse Name: Lakeisha MILLER Attending Position: [facility] ED Medicine MD Name: Heather Kaba Position: [facility] ED RN W/OE and Tasks Member Role: Patient Care Provider Name: Delon Perez Position: [facility] ED OA Charge Member Role: ED Associate Name: Anna Rowland Position: [facility] ED TA [facility] Member Role: Reservoir Engineer Care Team Related Persons Name: EREN CONLEY Address: home [address] [place] [address] Name: AMARA JIN Address: [place] [address]
--- OUTSIDE RECORDS SUMMARY | 2023-07-07 22:16 | XMS_ITS | Continuity of Care Document ---
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 Address: Address: [address] [place] [id number]- Name: Jennifer Millan RN Position: [facility] SN RN Member Role: Primary Care Nurse Name: Daly Meadows RN Position: [facility] Hospital Oracle Ebs Architect Member Role: Primary Care Nurse Care Team Related Persons Name: EREN CONLEY Address: home [address] [place] [address] Name: AMARA JIN Address: [place] [address]
--- OUTSIDE RECORDS SUMMARY | 2023-07-07 22:16 | XMS_ITS | Continuity of Care Document ---
Author Name Unknown Organization [facility] Address [address] [place] [id number]- Care Team Providers Care Assembler Fluorescent Lights Name Role Phone Sidney TORREZ, Noemi Primary Care Physician [phone] Encounter [facility] [place] Date(s): 02/26/20 - 02/28/[address] [address]- [facility] Encounter Diagnosis Cellulitis(Final) - 02/27/20 Discharge Disposition: A-D/C Home Attending Physician: Bridget Crowder MD Admitting Physician: Vianey CHILD, Rosemary Referring Physician: Not on Staff, Referring MD [...] 02/15/11 Given tetanus/diphtheria/pertussis, acel(Tdap) 01/26/08 Given Medications amoxicillin-clavulanate 875 mg-125 mg oral tablet = 875 mg, By Mouth, 2 times a day, for 9 days, # 18 capsule, 0 Refills, Acute 03/08/20 15:21:19 EDT, 02/28/20 14:40:00 EDT, Tablet, [facility], 180, cm, 02/28/20 12:26:00 EDT, Height, 77.4, kg, 02/27/20 2:46:00 EDT, Dry Weight Start Date: 02/28/20 Stop Date: 03/08/20 Status: Ordered doxycycline monohydrate 100 mg oral tablet = 100 mg, By Mouth, Every 12 hours, for 9 days, # 18 each, 0 Refills, Acute 03/08/20 15:21:41 EDT, 02/28/20 14:41:00 EDT, Tablet, [facility], 180, cm, 02/28/20 12:26:00 EDT, Height, 77.4, kg, 02/27/20 2:46:00 EDT, Dry Weight Start Date: 02/28/20 Stop Date: 03/08/20 Status: Ordered folic acid 1 mg oral tablet 1 mg, 1, tablet, By Mouth, Daily, # 30 tablet, Refills 0, Tot. Refills 0, Maintenance, 02/28/20 14:41:00 EDT, Route to Pharmacy Electronically, [facility], 180, cm, 02/28/20 12:26:00 EDT, Height, 77.4, kg, 02/27/20 2:46:00 EDT, Dry Weight Start Date: 02/28/20 Status: Ordered multivitamin Vitamin B Complex with C oral tablet 1 tablet, By Mouth, Daily, # 30 tablet, 0 Refills, Maintenance, 02/28/20 14:41:00 EDT, Capsule, [facility], 1 tablet By Mouth Daily, 180, cm, 02/28/20 12:26:00 EDT, Height, 77.4, kg, 02/27/20 2:46:00 EDT, Dry Weight Start Date: 02/28/20 Status: Ordered thiamine 100 mg oral tablet 100 mg, 1, tablet, By Mouth, 2 times a day, for 30 days, # 60 tablet, Refills 0, Tot. Refills 0, Acute 03/29/20 14:42:00 EDT, 02/28/20 14:42:00 EDT, Route to Pharmacy Electronically, [facility], 180, cm, 02/28/20 12:26:00 EDT, Height, 77... Start Date: 02/28/20 Stop Date: 03/29/20 Status: Ordered Tylenol 325 mg oral tablet 650 mg, 2, tablet, By Mouth, Every 6 hours, PRN, for 14 days, # 50 tablet, Refills 0, Tot. Refills 0, Acute 03/13/20 14:40:00 EDT, Pain , Mild Temperature, 02/28/20 14:40:00 EDT, Route to Pharmacy Electronically, [facility], 180, cm, 0... Start Date: 02/28/20 Stop Date: 03/13/20 Status: Ordered Problem List Condition Effective Dates Status Health Status Inform ant ADHD(Confirmed) 03/11/11 Active Antisocial Personality Disorder(Confirmed) 03/11/11 Active Bipolar disorder NOS(Confirmed) 03/11/11 Active IV drug abuse(Confirmed) Active Open Wound of Chest (Wall), without Mention of Complication(Confirmed) 12/17/10 Active TBI (traumatic brain injury)(Confirmed) Active Traumatic Pneumothorax with Open Wound Into Thorax(Confirmed) 12/05/10 Active Traumatic Pneumothorax with Open Wound Into Thorax(Confirmed) 12/17/10 Active Hepatitis C(Confirmed) Active Results Orders for Microbiology Reports Name Date Anaerobic Culture (ANAEROBIC CULTURE) Fungal Culture, Nonrespiratory (FUNGAL C ULT,NON-RESPIRATORY) 02/27/20 Wound Deep Culture w/ Gram Smear (DEEP W OUND CULTURE) 02/27/20 Blood Culture #2 02/26/20 Blood Culture 02/26/20 Microbiology Reports TEST:Anaerobic Culture STATUS:Unauthenticated BODY SITE: SOURCE:ABSCES COLLECTED DATE/TIME:02/27/20 4:45 PM Anaerobic Culture SPECIMEN DESCRIPTION : ABSCESS LEFT ANTECUBE FOSSA SPECIAL REQUESTS : NONE CULTURE : NO ANAEROBES ISOLATED SO FAR. REPORT STATUS : PRELIMINARY REPORT TEST:Deep Wound Culture STATUS:Unauthenticated BODY SITE: SOURCE:ABSCES COLLECTED DATE/TIME:02/27/20 4:45 PM Deep Wound Culture SPECIMEN DESCRIPTION : ABSCESS LEFT ANTECUBE FOSSA SPECIAL REQUESTS : NONE GRAM STAIN : 4+ POLYMORPHONUCLEAR LEUKOCYTES 4+ GRAM POSITIVE COCCI 3+ GRAM NEGATIVE RODS 2+ GRAM POSITIVE RODS REPORT STATUS : PRELIMINARY REPORT TEST:Fungal Culture, Non-Respiratory STATUS:Unauthenticated BODY SITE: SOURCE:ABSCES COLLECTED DATE/TIME:02/27/20 4:45 PM Fungal Culture, Non-Respiratory SPECIMEN DESCRIPTION : ABSCESS LEFT ANTECUBE FOSSA SPECIAL REQUESTS : NONE DIRECT EXAM : NO FUNGAL ELEMENTS OBSERVED REPORT STATUS : PRELIMINARY REPORT TEST:Blood Culture, Second Order STATUS:Unauthenticated BODY SITE: SOURCE:Blood COLLECTED DATE/TIME:02/26/20 10:27 AM Blood Culture, Second Order SPECIMEN DESCRIPTION : BLOOD R HAND SPECIAL REQUESTS : NONE CULTURE : NO GROWTH AFTER 48 HOURS REPORT STATUS : PRELIMINARY REPORT TEST:Blood Culture STATUS:Unauthenticated BODY SITE: SOURCE:Blood COLLECTED DATE/TIME:02/26/20 6:30 AM Blood Culture SPECIMEN DESCRIPTION : BLOOD L AC SPECIAL REQUESTS : NONE CULTURE : NO GROWTH AFTER 48 HOURS REPORT STATUS : PRELIMINARY REPORT Radiology Reports * Exam Date Time Procedure Performing Provider Status 02/26/20 10:25 AM Elbow Min 3 Views Left Jigar Rdz; Radhames (Verified) Notes: (Elbow Min 3 Views Left) Reason For Exam: Pain RESULT: Elbow Min 3 Views Left Left elbow 3 views dated February 26, 2020. Comparison films are from January 17, 2020. HISTORY: Pain. FINDINGS: There is increased soft tissue swelling in the humeral fossa region. Foci of soft tissue gas noted on the previous study are no longer seen. No fracture or dislocation is identified. No bony erosion is noted. No joint effusion is seen. IMPRESSION: Worsening soft tissue swelling. Further evaluation can be performed with ultrasound or CT, as needed. Examination [id number]. Thank you for allowing me to participate in the care of this patient. WSN: [id number] Ordering Physician: Bill Montano Dictated By: Lavon Canales MD Dictated Date/Time: 02/26/20 10:27 a Reviewed By: Lavon Canales MD Signed By: Lavon Canales MD Signed Date/Time: 02/26/20 10:27 am Transcribed By: PINO Transcribed Date/Time: 02/26/20 10:25 am Vital Signs Most recent to oldest [Reference Range]: 1 2 3 Height 180 cm (02/28/20 12:26 PM) 180 cm (02/28/20 4:43 AM) 180 cm (02/28/20 1:20 AM) Weight 77.4 kg (02/27/20 3:13 PM) 77.4 kg (02/26/20 11:55 PM) 77.4 kg (02/26/20 10:27 PM) Oxygen Saturation [94-100 %] 96 % (02/28/20 12:26 PM) 100 % (02/28/20 4:43 AM) 97 % (02/28/20 1:20 AM) Pulse Rate [55-90 bpm] 84 bpm (02/28/20 12:26 PM) 111 bpm *H* (02/28/20 4:43 AM) 106 bpm *H* (02/28/20 1:20 AM) Body Mass Index [18.5-24.99] 23.89 (02/27/20 3:13 PM) 23.89 (02/26/20 11:55 PM) 23.89 (02/26/20 10:27 PM) Blood Pressure [90-138/55-84 mm Hg] 119/63mm Hg (02/28/20 12:26 PM) 122/59mm Hg (02/28/20 4:43 AM) 118/78mm Hg (02/28/20 1:20 AM) Respiratory Rate [16-30 br/min] 18 br/min (02/28/20 12:26 PM) 18 br/min (02/28/20 9:41 AM) 18 br/min (02/28/20 8:41 AM) Temperature [96.8-100.4 DegF] 97.6 DegF (02/28/20 12:26 PM) 98.0 DegF (02/28/20 4:43 AM) 99.4 DegF (02/28/20 1:20 AM) Liters per Minute 6 L/min (02/27/20 5:00 PM) Mode of Delivery (Oxygen) Room air (02/28/20 12:26 PM) Room air (02/28/20 4:43 AM) Room air (02/28/20 1:20 AM) Blood pressure sites Arm, right (02/28/20 12:26 PM) Arm, right (02/28/20 4:43 AM) Arm, right (02/28/20 1:20 AM) Temperature Route Oral (02/28/20 12:26 PM) Oral (02/28/20 4:43 AM) Oral (02/28/20 1:20 AM) Dry Weight 77.4 kg (02/26/20 11:55 PM) Weight Obtained Via Bed scale (02/26/20 10:27 PM) Social History Social History Type Response Sex Male
--- OUTSIDE RECORDS SUMMARY | 2023-07-07 22:16 | XMS_ITS | Continuity of Care Document ---
Author Name Unknown Organization [facility] Address [address] [place] [id number]- Care Team Providers Care Infrastructure Software Engineer Name Role Phone Sidney TORREZ, Noemi Primary Care Physician [phone] Encounter [facility] [place] Date(s): 11/21/20 - 11/21/[address] [address]- Discharge Disposition: A-D/C Walkout Attending Physician: Not [...] Medications hydrOXYzine pamoate 50 mg oral capsule = 50 mg, By Mouth, 3 times a day, PRN Anxiety, # 90 capsule, 0 Refills, Maintenance, 08/24/20 11:49:00 EDT, Capsule, [id number], Partial fill upon patient request if the prescription is for aschedule II opioid drug., 180, cm, 08/23/20 15:52:0... Start Date: 08/24/20 Status: Ordered methadone 10 mg oral tablet 5.5 tablet = 55 mg, By Mouth, Daily, 0 Refills, Maintenance, 08/24/20 11:49:00 EDT, Tablet, Partialfill upon patient request if the prescription is for a schedule II opioid drug. Start Date: 08/24/20 Status: Ordered SEROquel XR 200 mg oral tablet, extended release 400 mg, 2, tablet, By Mouth, Daily at bedtime, # 60 tablet, Refills 0, Tot. Refills 0, Maintenance,08/24/20 11:49:00 EDT, Route to Pharmacy Electronically, [id number], Partial fill upon patient request if the prescription is for a schedule II... Start Date: 08/24/20 Status: Ordered traZODone 50 mg oral tablet 50 mg, 1, tablet, By Mouth, 2 times a day, # 14 tablet, Refills 0, Tot. Refills 0, Maintenance, 08/24/20 11:48:00 EDT, Route to Pharmacy Electronically, [id number], Partial fill upon patient request if [...] Most recent to oldest [Reference Range]: 1 Oxygen Saturation [94-100 %] 100 % (11/21/20 4:48 AM) Pulse Rate [55-90 bpm] 64 bpm (11/21/20 4:48 AM) Blood Pressure [90-138/55-84 mm Hg] 102/ 71mm Hg (11/21/20 4:48 AM) Respiratory Rate [16-30 br/min] 18 br/mi n (11/21/20 4:48 AM) Temperature [96.8-100.4 DegF] 98.5 DegF (11/21/20 4:48 AM) Mode of Delivery (Oxygen) Room air (11/21/20 4:48 AM) Blood pressure sites Arm, right (11/21/20 4:48 AM) Temperature Route Oral (11/21/20 4:48 AM) Social History Social History Type Response Smoking Status 5-9 cigarettes (betw een 1/4 to 1/2 pack)/day in last 30 days entered on: 07/17/20 Sex Male
--- OUTSIDE RECORDS SUMMARY | 2023-07-07 22:16 | XMS_ITS | Continuity of Care Document ---
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 Event Display: Result: Authored Date: [id number] Tibia/Fibula 2 Views Left Hx of Present Illness: pt reports abscess on left leg x1 week, + drug injection to area; Reason: Trauma; with Pain; Clinical Question(s): Fracture; Special Instructions: This is a protocol film and radiologist should call any findings to the Charge Nurse COMPARISON: 07/05/2022. FINDINGS: No fractures or bone lesions. Visualized joints are normal. Interval improvement in soft tissue swelling and focal thickening medially in the lower leg, now measuring up to 1.7 cm, previously 2.5 cm. No radiopaque foreign body seen. IMPRESSION: No acute osseous abnormality. Interval improvement in soft tissue swelling in the medial lower leg. WSN: [id number] Ordering Physician: Matthew Lund Dictated By: Randy Casey MD Dictated Date/Time: 07/12/22 11:56 p Reviewed By: Randy Casey MD Signed By: Randy Casey MD Signed Date/Time: 07/12/22 11:56 pm Transcribed By: PINO Transcribed Date/Time: 07/12/22 11:[address] Lower extremity - left W contrast IV * [facility] , CIS S: TRANSCRIBE Rc Jaeger MD W: VERIFY Eduardo[Radiology] Kayy CHILD: SIGN Event Display: Result: Authored Date: [id number] CT Ext Lower W/ Contrast Left INDICATION: Known left lower leg cellulitis, evaluate for abscess. TECHNIQUE: Helical CT without contrast formatted in 3 planes. Weight-based protocol using automatictube modulation was used to optimize exposure parameters. CTDIvol Body: 17.40 mGy, DLP Body: 1160 mGy*cm. COMPARISONS: 07/06/2022. FINDINGS: Bones and joints: No fracture or dislocation is present. No erosions, productive changes or abnormal calcifications are noted. Talar beak noted. No evidence of coalition. Soft Tissues: Subcutaneous fat stranding and edema noted extending from the distal third of the medial left leg till the ankle. In the distal medial calf, there is a 3.8 x 1.5 x 1.2 fluid collection with mild peripheral enhancement suggestive of an abscess. Small effusion within the knee joint. Small Wilson's cyst present. IMPRESSION: Largely unchanged appearance of presumed cellulitis and a 3.8 cm abscess in the distal medial leg. No CT evidence for osteomyelitis. I have personally reviewed the images and I agree with this report. WSN: [id number] Ordering Physician: Derrick Hood Dictated By: Eduardo[Radiology] Kayy CHILD Dictated Date/Time: 07/13/22 3:55 pm Reviewed By: Rc Jaeger MD Signed By: Rc Jaeger MD Signed Date/Time: 07/13/22 4:00 pm Transcribed By: PINO Transcribed Date/Time: 07/13/22 2:57 pm Patient Care team information Care Team Personnel Name: Trudi Cohen RN Position: [facility] RN Member Role: Primary Care Nurse Name: Analy Johansen RN Position: [facility] RN Member Role: Primary Care Nurse Name: Thuy Houston RN Position: [facility] HBO Wound Member Role: Primary Care Nurse Name: Michael Freitas RN Position: [facility] RN Member Role: Primary Care Nurse Name: Antwan Gracia RN Position: [facility] RN Member Role: Primary Care Nurse Name: Noemi Little NP Position: Reference Physician Member Role: PCP Address: Address: [address] [place] [address] [place] [address]- [place] Name: Jesse Dumas RN Position: [facility] RN Member Role: Primary Care Nurse Name: Margaux Casey RN Position: [facility] AMB Nurse Member Role: Primary Care Nurse Name: Roberth Catalan RN Position: [facility] RN Member Role: Primary Care Nurse Name: Sarah Coffey RN Position: [facility] RN Member Role: Primary Care Nurse Name: Yamini Bang RN Position: [facility] RN Member Role: Primary Care Nurse Name: Yanet Warren RN Position: [facility] RN Member Role: Primary Care Nurse Name: Troy Salinas RN Position: [facility] RN Member Role: Primary Care Nurse Address: Address: [address] [place] [address]- [place] Name: Jennifer Millan RN Position: [facility] RN Member Role: Primary Care Nurse Name: Daly Meadows RN Position: [facility] Hospital 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
--- OUTSIDE RECORDS SUMMARY | 2023-07-07 22:16 | XMS_ITS | Continuity of Care Document ---
Author Name Unknown Organization [facility] Address [address] [place] [id number]- Care Team Providers Care Herbarium Curator Name Role Phone Sidney TORREZ, Noemi Primary Care Physician [place] [facility] [place] 10[place]24[place] - 10/25/[address] [address]- Discharge Disposition: A-D/C Walkout Attending Physician: Nura Jiménez MD Admitting Physician: [...] Refills, Maintenance, 08/24/20 11:49:00 EDT, Capsule, [id number], Partial fill upon patient request if the [...] Maintenance,08/24/20 11:49:00 EDT, Route to Pharmacy Electronically, [facility][id number], Partial fill upon patient request if the prescription is for a schedule II... Start Date: 08/24/20 Status: Ordered traZODone 50 mg oral tablet 50 mg, 1, tablet, By Mouth, 2 times a day, # 14 tablet, Refills 0, Tot. Refills 0, Maintenance, 08/24/20 11:48:00 EDT, Route to Pharmacy Electronically, [facility]/pharmacy #[id number], Partial fill upon patient request if [...] 3 Oxygen Saturation [94-100 %] 100 % (10/25/20 5:59 AM) 100 % (10/25/20 3:40 AM) 100 % (10/24/20 11:24 PM) Pulse Rate [55-90 bpm] 68 bpm (10/25/20 5:59 AM) 74 bpm (10/25/20 3:40 AM) 70 bpm (10/24/20 11:24 PM) Blood Pressure [90-138/55-84 mm Hg] 117/67mm Hg (10/25/20 5:59 AM) 109/63mm Hg (10/25/20 3:40 AM) 130/74mm Hg (10/24/20 11:24 PM) Respiratory Rate [16-30 br/min] 17 br/min (10/25/20 5:59 AM) 16 br/min (10/25/20 3:40 AM) 18 br/min (10/24/20 11:24 PM) Temperature [96.8-100.4 DegF] 97.4 DegF (10/25/20 3:40 AM) 98.7 DegF (10/24/20 11:24 PM) Mode of Delivery (Oxygen) Room air (10/25/20 5:59 AM) Room air (10/25/20 3:40 AM) Room air (10/24/20 11:24 PM) Blood pressure sites Arm, right (10/25/20 5:59 AM) Arm, right (10/25/20 3:40 AM) Arm, right (10/24/20 11:24 PM) Temperature Route Oral (10/25/20 3:40 AM) Oral (10/24/20 11:24 PM) Social History Social History Type Response Smoking Status 5-9 cigarettes (betw een 1/4 to 1/2 pack)/day in last 30 days entered on: 07/17/20 Sex Male
--- OUTSIDE RECORDS SUMMARY | 2023-07-07 22:16 | XMS_ITS | Continuity of Care Document ---
Author Name Unknown Organization [facility] ter Address [address] [place] [id number]- Care Team Providers Care Drywall Stripper Helper Name Role Phone Sidney TORREZ, Noemi Primary Care Physician [phone] Encounter [facility] [place] [place] Date(s): 03/13/20 - 03/14/[address] [address]- [facility] Discharge Disposition: A-D/C Home Attending Physician: Leticia Londono MD Admitting Physician: Leticia Londono MD Referring Physician: Not on Staff, Referring [...] 02/15/11 Given tetanus/diphtheria/pertussis, acel(Tdap) 01/26/08 Given Medications folic acid 1 mg oral tablet 1 mg, 1, tablet, By Mouth, Daily, # 30 tablet, Refills 0, Tot. Refills 0, Maintenance, 02/28/20 14:41:00 EDT, Route to Pharmacy Electronically, [facility], 180, cm, 02/28/20 12:26:00 EDT, Height, 77.4, kg, 02/27/20 2:46:00 EDT, Dry Weight Start Date: 02/28/20 Status: Ordered multivitamin Vitamin B Complex with C oral tablet 1 tablet, By Mouth, Daily, # 30 tablet, 0 Refills, Maintenance, 02/28/20 14:41:00 EDT, Capsule, [facility], 1 tablet By Mouth Daily, 180, cm, 02/28/20 12:26:00 EDT, Height, 77.4, kg, 02/27/20 2:46:00 EDT, Dry Weight Start Date: 02/28/20 Status: Ordered thiamine 100 mg oral tablet 100 mg, 1, tablet, By Mouth, 2 times a day, for 30 days, # 60 tablet, Refills 0, Tot. Refills 0, Acute 03/29/20 14:42:00 EDT, 02/28/20 14:42:00 EDT, Route to Pharmacy Electronically, [facility], 180, cm, 02/28/20 12:26:00 EDT, Height, 77... Start Date: 02/28/20 Stop Date: 03/29/20 Status: Ordered Problem List Condition Effective Dates [...] 3 Oxygen Saturation [94-100 %] 100 % (03/14/20 3:00 PM) 99 % (03/14/20 7:47 AM) 100 % (03/13/20 11:11 PM) Pulse Rate [55-90 bpm] 55 bpm (03/14/20 3:00 PM) 56 bpm (03/14/20 7:47 AM) 42 bpm *L* (03/13/20 11:11 PM) Blood Pressure [90-138/55-84 mm Hg] 104/66mm Hg (03/14/20 3:00 PM) 103/60mm Hg (03/14/20 7:47 AM) 113/62mm Hg (03/13/20 11:11 PM) Respiratory Rate [16-30 br/min] 18 br/min (03/14/20 3:00 PM) 18 br/min (03/14/20 7:47 AM) 18 br/min (03/13/20 11:11 PM) Temperature [96.8-100.4 DegF] 97.5 DegF (03/14/20 3:00 PM) 97.3 DegF (03/14/20 7:47 AM) 98.3 DegF (03/13/20 11:11 PM) Mode of Delivery (Oxygen) Room air (03/14/20 3:00 PM) Room air (03/14/20 7:47 AM) Room air (03/13/20 11:11 PM) Blood pressure sites Arm, left (03/14/20 3:00 PM) Arm, left (03/14/20 7:47 AM) Arm, left (03/13/20 11:11 PM) Temperature Route Oral (03/14/20 3:00 PM) Oral (03/14/20 7:47 AM) Oral (03/13/20 11:11 PM) Social History Social History Type Response Sex Male
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
--- OUTSIDE RECORDS SUMMARY | 2023-07-07 22:16 | XMS_ITS | Continuity of Care Document ---
Author Name Unknown Organization [facility] Address [address] [place] [address]- Care Team Providers Care Acquisitions Analyst Name Role Phone Sidney TORREZ, Noemi Primary Care Physician [place] [facility] [place] - 01/22/[address] [address]- Discharge Disposition: A-D/C Walkout Attending Physician: Nura [...] Refills, Maintenance, 08/24/20 11:49:00 EDT, Capsule, [id number], Partial fill upon patient request if the [...] Maintenance,08/24/20 11:49:00 EDT, Route to Pharmacy Electronically, [facility]/pharmacy #[id number], Partial fill upon patient request if the prescription is for a schedule II... Start Date: 08/24/20 Status: Ordered traZODone 50 mg oral tablet 50 mg, 1, tablet, By Mouth, 2 times a day, # 14 tablet, Refills 0, Tot. Refills 0, Maintenance, 08/24/20 11:48:00 EDT, Route to Pharmacy Electronically, [facility]/pharmacy #[id number], Partial fill upon patient request [...] recent to oldest [Reference Range]: 1 2 Oxygen Saturation [94-100 %] 100 % (01/22/21 6:38 AM) 100 % (01/22/21 3:10 AM) Pulse Rate [55-90 bpm] 61 bpm (01/22/21 6:38 AM) 107 bpm *H* (01/22/21 3:10 AM) Blood Pressure [90-138/55-84 mm Hg] 107/ 65mm Hg (01/22/21 6:38 AM) 135/75mm Hg (01/22/21 3:13 AM) Respiratory Rate [16-30 br/min] 16 br/mi n (01/22/21 6:38 AM) 18 br/min (01/22/21 3:10 AM) Temperature [96.8-100.4 DegF] 98.1 DegF (01/22/21 6:38 AM) 99.3 DegF (01/22/21 3:13 AM) Mode of Delivery (Oxygen) Room air (01/22/21 3:10 AM) Blood pressure sites Arm, right (01/22/21 3:13 AM) Temperature Route Oral (01/22/21 6:38 AM) Oral (01/22/21 3:13 AM) Social History Social History Type Response Smoking Status 5-9 cigarettes (betw een 1/4 to 1/2 pack)/day in last 30 days entered on: 07/17/20 Sex Male
--- OUTSIDE RECORDS SUMMARY | 2023-07-07 22:16 | XMS_ITS | Continuity of Care Document ---
Author Name Unknown Organization [facility] Address [address] [place] [address]- Care Team Providers Care Resident Care Manager Name Role Phone Sidney TORREZ, Noemi Primary Care Physician [place] [facility] [place] - 02/06/[address] [address]- Discharge Disposition: A-D/C Walkout Attending Physician: Not [...] Refills, Maintenance, 08/24/20 11:49:00 EDT, [facility]apsule, [id number], Partial fill upon patient request if the [...] Maintenance,08/24/20 11:49:00 EDT, Route to Pharmacy Electronically, [facility]/pharmacy #[id number], Partial fill upon patient request if the prescription is for a schedule II... Start Date: 08/24/20 Status: Ordered traZODone 50 mg oral tablet 50 mg, 1, tablet, By Mouth, 2 times a day, # 14 tablet, Refills 0, Tot. Refills 0, Maintenance, 08/24/20 11:48:00 EDT, Route to Pharmacy Electronically, [facility]/pharmacy #[id number], Partial fill upon patient request [...] 3 Oxygen Saturation [94-100 %] 100 % (02/06/21 2:47 AM) 97 % (02/05/21 11:23 PM) 100 % (02/05/21 11:17 PM) Pulse Rate [55-90 bpm] 56 bpm (02/06/21 2:47 AM) 77 bpm (02/05/21 11:23 PM) 96 bpm *H* (02/05/21 11:17 PM) Blood Pressure [90-138/55-84 mm Hg] 102/57mm Hg (02/06/21 2:47 AM) 117/60mm Hg (02/05/21 11:23 PM) Respiratory Rate [16-30 br/min] 16 br/min (02/06/21 2:47 AM) 16 br/min (02/05/21 11:23 PM) Temperature [96.8-100.4 DegF] 98.7 DegF (02/06/21 2:47 AM) 99.1 DegF (02/05/21 11:23 PM) Mode of Delivery (Oxygen) Room air (02/06/21 2:47 AM) Room air (02/05/21 11:23 PM) Blood pressure sites Arm, right (02/06/21 2:47 AM) Arm, right (02/05/21 11:23 PM) Temperature Route Oral (02/06/21 2:47 AM) Oral (02/05/21 11:23 PM) Social History Social History Type Response Smoking Status 5-9 cigarettes (betw een 1/4 to 1/2 pack)/day in last 30 days entered on: 07/17/20 Sex Male
--- OUTSIDE RECORDS SUMMARY | 2023-07-07 22:17 | XMS_ITS | Continuity of Care Document ---
Author Name Unknown Organization [facility] Address [address] [place] [address]- Care Team Providers Care Photographic Equipment Inspector Name Role Phone Sidney TORREZ, Noemi Primary Care Physician [place] [facility] [place] - 08/09/[address] [address] [facility] Encounter Diagnosis Depression(Final) - 08/07/19 Discharge Disposition: Transfer to [facility] Facility Attending Physician: Girish Flores MD Admitting Physician: [...] Given tetanus/diphtheria/pertussis, acel(Tdap) 01/26/08 Given Medications hydrOXYzine hydrochloride 50 mg oral tablet 1 tablet = 50 mg, By Mouth, 3 times a day, PRN for anxiety, # 40 tablet, 0 Refills, Maintenance, 08/09/19 1:30:00 EST, Tablet Start Date: 08/09/19 Status: Ordered hydrOXYzine pamoate 50 mg oral capsule See Instructions, PRN Anxiety, as needed daily for anxiety, # 10 capsule, 2 Refills, Maintenance, 12/27/18 9:12:14 EDT, Capsule Start Date: 12/27/18 Status: Ordered Nicoderm C-Q Clear 14 mg/24 hr transdermal film, extended release 1 patch, Topically, Daily, # 30 patch, 1 Refills, Maintenance, 12/27/18 9:13:54 EDT, Patch Start Date: 12/27/18 Status: Ordered SEROquel 100 mg oral tablet 200 mg, 2, tablet, By Mouth, Daily at bedtime, # 90 tablet, Refills 0, Maintenance, 08/09/19 1:31:00 EST Start Date: 08/09/19 Status: Ordered SEROquel 50 mg oral tablet See Instructions, PRN Agitation, 1 tablet By Mouth 3 times a day, 0 Refills, Maintenance, 08/09/19 1:31:00 EST, Tablet Start Date: 08/09/19 Status: Ordered traZODone 50 mg oral tablet 50 mg, 1, tablet, By Mouth, Daily at bedtime, PRN, # 15 tablet, Refills 1, Tot. Refills 1, Maintenance, Insomnia, 12/27/18 9:11:08 EDT, Route to Pharmacy Electronically, [id number], [facility]/pharmacy #[id number] Start Date: 12/27/18 Status: Ordered ZyPREXA 10 mg oral tablet 10 mg, 1, tablet, By Mouth, 2 times a day, # 30 tablet, Refills 1, Tot. Refills 1, Maintenance, 12/27/18 9:10:11 EDT, Route to Pharmacy Electronically, [id number], [facility]/pharmacy #[id number] Start Date: 12/27/18 Status: Ordered [...] oldest [Reference Range]: 1 2 3 Weight 82.4 kg (08/08/19 10:24 PM) 82.4 kg (08/08/19 1:10 PM) 82.4 kg (08/08/19 7:00 AM) Oxygen Saturation [94-100 %] 100 % (08/08/19 10:24 PM) 100 % (08/08/19 1:10 PM) 100 % (08/08/19 7:00 AM) Pulse Rate [55-90 bpm] 69 bpm (08/08/19 10:24 PM) 54 bpm *L* (08/08/19 1:10 PM) 66 bpm (08/08/19 7:00 AM) Blood Pressure [90-138/55-84 mm Hg] 122/65mm Hg (08/08/19 10:24 PM) 111/63mm Hg (08/08/19 1:10 PM) 106/67mm Hg (08/08/19 7:00 AM) Respiratory Rate [16-30 br/min] 18 br/min (08/08/19 10:24 PM) 18 br/min (08/08/19 1:10 PM) 16 br/min (08/08/19 7:00 AM) Temperature [96.8-100.4 DegF] 98 DegF (08/08/19 10:24 PM) 98.1 DegF (08/08/19 1:10 PM) 97.5 DegF (08/08/19 7:00 AM) Mode of Delivery (Oxygen) Room air (08/08/19 10:24 PM) Room air (08/08/19 1:10 PM) Room air (08/08/19 7:00 AM) Blood pressure sites Arm, right (08/08/19 10:24 PM) Arm, right (08/08/19 1:10 PM) Arm, right (08/08/19 7:00 AM) Temperature Route Oral (08/08/19 10:24 PM) Oral (08/08/19 1:10 PM) Oral (08/08/19 7:00 AM) Dry Weight 82.4 kg (08/08/19 10:24 PM) 82.4 kg (08/08/19 1:10 PM) 82.4 kg (08/08/19 7:00 AM) Weight Obtained Via Standing scale (08/07/19 10:56 PM) Dry Weight Obtained Via Standing scale (08/07/19 10:56 PM)
--- OUTSIDE RECORDS SUMMARY | 2023-07-07 22:17 | XMS_ITS | Continuity of Care Document ---
Author Name Unknown Organization [facility] Address [address] [place] [address]- Care Team Providers Care Kicking Machine Operator Name Role Phone Not on Staff, PCP Primary Care Physician Unavail able Encounter [facility] Date(s): 10/03/22 - 10/04/[address] [address]- Discharge Disposition: A-D/C Home Attending Physician: Niranjan Sebastian DO Admitting Physician: Niranjan Sebastian DO Referring Physician: Not on Staff, Referring [...] for anxiety Start Date: 07/06/22 Status: Ordered Methadone Tablet 20 mg, Tablet, By Mouth, Once, STAT, 10/04/22 0:23:00 EDT, Stop date 10/04/22 0:23:00 EDT Start Date: 10/04/22 Stop Date: 10/04/22 Status: Completed naloxone 4 mg/0.1 mL nasal spray ADMINISTER [...] 1 2 3 Oxygen Saturation [94-100 %] 99 % (10/04/22 3:28 PM) 98 % (10/04/22 8:49 AM) 97 % (10/04/22 6:15 AM) Pulse Rate [55-90 bpm] 66 bpm (10/04/22 3:28 PM) 56 bpm (10/04/22 8:49 AM) 65 bpm (10/04/22 6:15 AM) Blood Pressure [90-138/55-84 mm Hg] 139/78mm Hg *H* (10/04/22 3:28 PM) 113/61mm Hg (10/04/22 8:49 AM) 121/74mm Hg (10/04/22 6:15 AM) Respiratory Rate [16-30 br/min] 18 br/min (10/04/22 3:28 PM) 16 br/min (10/04/22 8:49 AM) 18 br/min (10/04/22 8:49 AM) Temperature [96.8-100.4 DegF] 98.2 DegF (10/04/22 8:49 AM) 98.1 DegF (10/04/22 6:15 AM) 98.0 DegF (10/03/22 11:30 PM) Mode of Delivery (Oxygen) Room air (10/04/22 3:28 PM) Room air (10/04/22 8:49 AM) Room air (10/04/22 6:15 AM) Blood pressure sites Arm, right (10/04/22 3:28 PM) Arm, right (10/04/22 8:49 AM) Arm, right (10/04/22 6:15 AM) Temperature Route Oral (10/04/22 8:49 AM) Oral (10/04/22 6:15 AM) Oral (10/03/22 11:30 PM) Social History Social History Type Response Smoking Status 5-9 cigarettes (betw een 1/4 to 1/2 pack)/day in last 30 days entered on: 07/17/20 Sex Male EKG study * Event Display: EKG Authored Date: [id number] Note * Vicente Romo MD: PERFORM Event Display: Patient Education Leaflets Authored Date: [id number] Opioid Withdrawal ?? [id number] Opioid Withdrawal Opioid withdrawal occurs if you've used opioids daily for at least 3 weeks. Symptoms often start about 12 hours after the last dose of the opioid. But this varies greatly. It depends on which opioid you were using and how you were taking it (injecting, snorting, or pills). Withdrawal symptoms last from 3 to 5 days. But they can last much longer if you were taking the long-acting opioid methadone They may include yawning, sweating, goose bumps on the skin, runny nose, restlessness, stomach cramping, diarrhea, nausea, vomiting, hot and cold flashes, and trouble sleeping. Home care Follow these guidelines when caring for yourself at home: ??? Stay with someone who can help you and give you emotional support during this time. Don't take more of the addicting drug to stop your symptoms. ??? If you have stomach cramps, upset stomach (nausea), or vomiting, take only clear liquidsuntil the symptoms get better. Adults should drink a total of 2 to 3 quarts of liquid daily. It's best to take small frequent drinks rather than a few large ones. You may have liquids in any of theseforms: mineral water, apple juice, sports drinks, soft drinks without caffeine, clear broth soups, plain gelatin, and ice pops. ??? If you've been prescribed medicines to help manage your withdrawal s ymptoms, take them exactly as prescribed. Don't change or stop your medicine without calling your provider. ??? Don't use alcohol, caffeine, or tobacco during this time. ??? If you were given a clonidine patch, leave this on for 7 days. Call your provider if you have too much dizziness or drowsiness. ?? Follow-up care Follow up with your healthcare provider as advised. After you've gone through withdrawal, enroll [facility] outpatient treatment program. Getting through withdrawal is the first step in a long journey to living a drug-free life. Having trained professionals support you will make it more likely that you'll succeed. ?? When to get medical advice Call your healthcare provider right away if any of these occur: ??? Fever of 100.4??F (38??C) or higher, or as advised by your provider ??? Shaking chills ??? Can't keep liquids down for 8 hours ??? Frequent diarrhea ??? Signs of infection at the site of IV needle use (redness, warmth, pain, or swelling) ?? Call 911 Call 911 if any of these occur: ??? Trouble breathing or swallowing ??? Wheezing ??? Severe confusion ??? Extreme drowsiness or trouble waking up ??? Fainting (loss of consciousness) ??? Fast heart rate or very slow heart rate ??? Very low or very high blood pressure ??? Vomiting blood, or large amounts of blood in poop ??? Seizure ?? Last Reviewed Date: 2022 ?? [id number] [employer]. All rights reserved. This information is not intended as a substitute for professional medical care. Always follow your healthcare professional's instructions. ?? Patient Care team information Care Team Personnel Name: Yanet Richardson RN Position: [facility] RN Member Role: Primary Care Nurse Name: Analy Johansen RN Position: [facility] RN Member Role: Primary Care Nurse Name: Thuy Houston RN Position: [facility] Wound Member Role: Primary Care Nurse Name: Michael Freitas RN Position: [facility] RN Member Role: Primary Care Nurse Name: Antwan Garcia RN Position: [facility] RN Member Role: Primary Care Nurse Name: Jesse Dumas RN Position: [facility] RN Member Role: Primary Care Nurse Name: Margaux Casey RN Position: [facility] AMB Nurse Member Role: Primary Care Nurse Name: Roberth Catalan RN Position: [facility] RN Member Role: Primary Care Nurse Name: Not on Staff, PCP Position: [facility] Physician (General Medicine) Member Role: PCP Name: Sarah Coffey RN Position: [facility] RN Member Role: Primary Care Nurse Name: Yamini Bang RN Position: [facility] RN Member Role: Primary Care Nurse Name: Troy Salinas RN Position: [facility] RN Member Role: Primary Care Nurse Address: Address: [address] [place] [address]- Name: Jennifer Millan RN Position: [facility] SN RN Member Role: Primary Care Nurse Name: Daly Meadows RN Position: [facility] Hospital Bear Keeper Member Role: Primary Care Nurse Name: Vicente Romo MD Position: [facility] Resident Member Role: ED Resident Address: Address: [address] [place] [address] [place] [address]- Name: Sallie Chatman RN Position: [facility] ED RN W/OE and Tasks Member Role: Patient Care Provider Name: Niranjan Sebastian DO Position: [facility] Resident Member Role: Admitting Physician Address: Address: [address] [place] [address] Dept [place] [address]- Care Team Related Persons Name: EREN CONLEY Address: home [address] [place] [address] Name: AMARA JIN Address: [place] [address]
--- OUTSIDE RECORDS SUMMARY | 2023-07-07 22:17 | XMS_ITS | Continuity of Care Document ---
Author Name Unknown Organization [facility] Address [address] [place] [address]- Care Team Providers Care Fire Engine Pump Operator Name Role Phone Sidney TORREZ, Noemi Primary Care Physician Encounter [facility] Date(s): 02/06/21 - 02/09/[address] [address]- Encounter Diagnosis Abscess of skin and subcutaneous tissue(Final) - 02/07/21 Discharge Disposition: A-D/C Home Attending Physician: Дмитрий Hunter MD Admitting Physician: Luis Antonio IBRAHIM, Comfort Referring Physician: Not on Staff, Referring MD [...] 02/15/11 Given tetanus/diphtheria/pertussis, acel(Tdap) 01/26/08 Given Medications doxycycline hyclate 100 mg oral capsule 1 capsule = 100 mg, By Mouth, 2 times a day, for 10 days, # 20 capsule, 0 Refills, Acute 02/19/21 14:43:00 EDT, 02/09/21 14:43:00 EDT, Capsule, [facility], Partial fill upon patient request if the prescription is for a schedule II opioid... Start Date: 02/09/21 Stop Date: 02/19/21 Status: Ordered hydrOXYzine pamoate 50 mg oral capsule = 50 mg, By Mouth, 3 times a day, PRN Anxiety, # 90 capsule, 0 Refills, Maintenance, 08/24/20 11:49:00 EDT, Capsule, [id number], Partial fill upon patient request if the prescription is for aschedule II opioid drug., 180, cm, 08/23/20 15:52:0... Start Date: 08/24/20 Status: Ordered methadone 10 mg oral tablet 55 mg, Tablet, By Mouth, 02/09/21 9:00:00 EDT Start Date: 02/09/21 Stop Date: 02/09/21 Status: Completed methadone 10 mg oral tablet 5.5 tablet [...] for Microbiology Reports Name Date Blood Culture 02/08/21 Blood Culture #2 02/08/21 Wound Deep Culture w/ Gram Smear (Cultur e Wound Deep w/ Gram Smear) 02/06/21 Blood Culture 02/06/21 Blood Culture #2 02/06/21 Microbiology Reports TEST:Blood Culture STATUS:Unauthenticated BODY SITE: SOURCE:Blood COLLECTED DATE/TIME:02/08/21 11:43 AM Blood Culture SPECIMEN DESCRIPTION : BLOOD R ARM SPECIAL REQUESTS : NONE CULTURE : NO GROWTH AFTER 24 HOURS REPORT STATUS : PRELIMINARY REPORT TEST:Blood Culture, Second Order STATUS:Unauthenticated BODY SITE: SOURCE:Blood COLLECTED DATE/TIME:02/08/21 11:43 AM Blood Culture, Second Order SPECIMEN DESCRIPTION : BLOOD R ARM SPECIAL REQUESTS : NONE CULTURE : NO GROWTH AFTER 24 HOURS REPORT STATUS : PRELIMINARY REPORT TEST:Deep Wound Culture STATUS:Auth (Verified) BODY SITE: SOURCE:BODY F COLLECTED DATE/TIME:02/06/21 2:50 PM Deep Wound Culture SPECIMEN DESCRIPTION : BODY FLUID LEG LT SPECIAL REQUESTS : NONE GRAM STAIN : 1+ RBC'S 1+ POLYMORPHONUCLEAR LEUKOCYTES NO ORGANISMS SEEN CULTURE : 4+ ESCHERICHIA COLI REPORT STATUS : FINAL 02/09/2021 ORGANISM 4+ ESCHERICHIA COLI METHOD MIN. INHIB. CONC. (MCG/ML) AMPICILLIN RESISTANT AMPICILLIN/SULBACTAM INTERMEDIATE AMOXICILLIN/CLAVULAN SUSCEPTIBLE CEFAZOLIN SUSCEPTIBLE CEFEPIME SUSCEPTIBLE CEFTRIAXONE SUSCEPTIBLE CIPROFLOXACIN SUSCEPTIBLE ERTAPENEM SUSCEPTIBLE GENTAMICIN SUSCEPTIBLE LEVOFLOXACIN SUSCEPTIBLE MEROPENEM SUSCEPTIBLE PIPERACILLIN/TAZOBAC SUSCEPTIBLE TRIMETH/SULFAMETHOX RESISTANT TETRACYCLINE SUSCEPTIBLE TEST:Blood Culture, Second Order STATUS:Auth (Verified) BODY SITE: SOURCE:Blood COLLECTED DATE/TIME:02/06/21 11:45 AM Blood Culture, Second Order SPECIMEN DESCRIPTION : BLOOD L AC SPECIAL REQUESTS : CRITICAL VALUE CALLED AND VERIFIED BY READBACK FOR: GRAM POSITIVE COCCI,ADAM [id number],S64,TECH 357,02/07/21 @1213. CULTURE : STAPH. SPECIES, NOT STAPH. AUREUS Single isolates of Staph. species, not Staph. aureus, Micrococci, Bacillus species, Diphtheroids, Cutibacterium acnes (formerly Propionibacterium acnes) and Viridans Group Streptococci could be skin contaminants. Multiple isolates of these organisms are more likely to be significant. Staphylococcus species (not S. aureus) was identified by multi-plex PCR REPORT STATUS : FINAL 02/09/2021 ORGANISM STAPH. SPECIES, NOT STAPH. AUREUS Single isolates of Staph. species, not Staph. aureus, Micrococci, Bacillus species, Diphtheroids, Cutibacterium acnes (formerly Propionibacterium acnes) and Viridans Group Streptococci could be skin contaminants. Multiple isolates of these organisms are more likely to be significant. METHOD MIN. INHIB. CONC. (MCG/ML) CIPROFLOXACIN RESISTANT ERYTHROMYCIN RESISTANT LEVOFLOXACIN RESISTANT RIFAMPIN SUSCEPTIBLE TRIMETH/SULFAMETHOX RESISTANT VANCOMYCIN SUSCEPTIBLE TEST:Blood Culture STATUS:Unauthenticated BODY SITE: SOURCE:Blood COLLECTED DATE/TIME:02/06/21 11:43 AM Blood Culture SPECIMEN DESCRIPTION : BLOOD R HAND SPECIAL REQUESTS : NONE CULTURE : NO GROWTH 3 DAYS REPORT STATUS : PRELIMINARY REPORT Radiology Reports * Exam Date Time Procedure Performing Provider Status 02/06/21 10:32 AM Tibia/Fibula 2 Views Left Dianne Chow; Auth (Verified) Notes: (Tibia/Fibula 2 Views Left) Reason For Exam: abscess from IVDU, eval for foreign body, osteo;Pain RESULT: Tibia/Fibula 2 Views Left Tibia/Fibula 2 Views Left HX OF PRESENT ILLNESS: From home, started x7 days ago, increasing in cellulitis. -Drainage or puss.+redness swelling, tender to touch. -Fever, -chills. PMHx IVDU. Pt reports heats to the site, otherwise denies any other symptoms.; Reason: Pain; abscess from IVDU, eval for foreign body, osteo; Clinical Question(s): Foreign Body COMPARISON: 06/11/2013 FINDINGS: No fractures or bone lesions. Visualized joints are normal. There is focal soft tissue swelling at the medial aspect of the calf. No radiopaque foreign body. IMPRESSION: Focal soft tissue swelling at the medial calf but no fracture or radiopaque foreign body. WSN: [id number] Ordering Physician: Abelino Yee Dictated By: Alonso Woodall MD Dictated Date/Time: 02/06/21 10:51 a Reviewed By: Alonso Woodlal MD Signed By: Alonso Woodall MD Signed Date/Time: 02/06/21 10:51 am Transcribed By: PINO Transcribed Date/Time: 02/06/21 10:49 am Vital Signs Most recent to oldest [Reference Range]: 1 2 3 Height 180 cm (02/09/21 3:16 PM) 180 cm (02/09/21 6:11 AM) 180 cm (02/08/21 8:38 PM) Weight 64.8 kg (02/06/21 4:59 PM) 60 kg (02/06/21 2:34 PM) 60 kg (02/06/21 12:19 PM) Oxygen Saturation [94-100 %] 100 % (02/09/21 3:16 PM) 100 % (02/09/21 6:11 AM) 99 % (02/08/21 8:38 PM) Pulse Rate [55-90 bpm] 58 bpm (02/09/21 3:16 PM) 60 bpm (02/09/21 6:11 AM) 52 bpm *L* (02/08/21 8:38 PM) Body Mass Index [18.5-24.99] 20 (02/06/21 4:59 PM) Blood Pressure [90-138/55-84 mm Hg] 116/57mm Hg (02/09/21 3:16 PM) 101/58mm Hg (02/09/21 6:11 AM) 115/51mm Hg (02/08/21 8:38 PM) Respiratory Rate [16-30 br/min] 16 br/min (02/09/21 3:16 PM) 18 br/min (02/09/21 12:29 PM) 18 br/min (02/09/21 9:22 AM) Temperature [96.8-100.4 DegF] 98.4 DegF (02/09/21 3:16 PM) 97.7 DegF (02/09/21 6:11 AM) 98 DegF (02/08/21 8:38 PM) Liters per Minute 2 L/min (02/06/21 1:26 PM) Mode of Delivery (Oxygen) Room air (02/09/21 3:16 PM) Room air (02/09/21 6:11 AM) Room air (02/08/21 8:38 PM) Blood pressure sites Arm, right (02/09/21 3:16 PM) Arm, right (02/09/21 6:11 AM) Arm, left (02/08/21 8:38 PM) Temperature Route Oral (02/09/21 3:16 PM) Oral (02/09/21 6:11 AM) Oral (02/08/21 8:38 PM) Dry Weight 59 kg (02/06/21 4:59 PM) 60 kg (02/06/21 2:34 PM) 60 kg (02/06/21 12:19 PM) Dry Weight Obtained Via Patient/family s tated (02/06/21 4:59 PM) Social History Social History Type Response Smoking Status 5-9 cigarettes (betw een 1/4 to 1/2 pack)/day in last 30 days entered on: 07/17/20 Sex Male
--- OUTSIDE RECORDS SUMMARY | 2023-07-07 22:17 | XMS_ITS | Continuity of Care Document ---
Author Name Unknown Organization [facility] Address [address] [place] [address]- Care Team Providers Care Shale Processing Technician Name Role Phone Sidney TORREZ, Noemi Primary Care Physician [phone] Encounter [facility] [place] Date(s): 02/26/21 - 02/27/[address] [address]- Discharge Disposition: A-D/C Home Attending Physician: Maria Del Carmen Bell MD Admitting Physician: Maria Del Carmen Bell MD Referring Physician: Not on Staff, Referring [...] Refills, Maintenance, 08/24/20 11:49:00 EDT, [id number], Partial fill upon patient request if the [...] Maintenance,08/24/20 11:49:00 EDT, Route to Pharmacy Electronically, [id number], Partial fill upon patient request if the prescription is for a schedule II... Start Date: 08/24/20 Status: Ordered traZODone 50 mg oral tablet 50 mg, 1, tablet, By Mouth, 2 times a day, # 14 tablet, Refills 0, Tot. Refills 0, Maintenance, 08/24/20 11:48:00 EDT, Route to Pharmacy Electronically, [id number], Partial fill upon patient request if [...] 3 Oxygen Saturation [94-100 %] 100 % (02/27/21 2:20 PM) 100 % (02/27/21 6:33 AM) 99 % (02/26/21 7:30 PM) Pulse Rate [55-90 bpm] 89 bpm (02/27/21 2:20 PM) 68 bpm (02/27/21 6:33 AM) 72 bpm (02/26/21 7:30 PM) Blood Pressure [90-138/55-84 mm Hg] 130/77mm Hg (02/27/21 2:20 PM) 112/67mm Hg (02/27/21 6:33 AM) 127/94mm Hg (02/26/21 7:30 PM) Respiratory Rate [16-30 br/min] 18 br/min (02/27/21 2:20 PM) 16 br/min (02/27/21 6:33 AM) 16 br/min (02/26/21 7:30 PM) Temperature [96.8-100.4 DegF] 98.2 DegF (02/27/21 2:20 PM) 98.7 DegF (02/27/21 6:33 AM) 97.7 DegF (02/26/21 7:30 PM) Mode of Delivery (Oxygen) Room air (02/27/21 2:20 PM) Room air (02/27/21 6:33 AM) Room air (02/26/21 7:30 PM) Blood pressure sites Arm, right (02/27/21 2:20 PM) Arm, right (02/27/21 6:33 AM) Arm, right (02/26/21 7:30 PM) Temperature Route Oral (02/27/21 2:20 PM) Oral (02/27/21 6:33 AM) Oral (02/26/21 7:30 PM) Social History Social History Type Response Smoking Status 5-9 cigarettes (betw een 1/4 to 1/2 pack)/day in last 30 days entered on: 07/17/20 Sex Male
--- OUTSIDE RECORDS SUMMARY | 2023-07-07 22:17 | XMS_ITS | Continuity of Care Document ---
Author Name Unknown Organization [facility] Address [address] [place] [address]- Care Team Providers Care Electrical Design Technician Name Role Phone Sidney TORREZ, Noemi Primary Care Physician Encounter [facility] [place] Date(s): 08/17/20 - 08/24/[address] [address]- Encounter Diagnosis Left arm pain(Final) - 08/17/20 Discharge Disposition: A-D/C Home Attending Physician: Maria R Ledbetter MD Admitting Physician: Hannah Coffman MD Referring Physician: Not on Staff, Referring [...] 08/31/20 11:52:00 EDT, 08/24/20 11:52:00 EDT, Tablet, [id number], Partial fill upon patient request if the prescription is for a schedule II opioid drug., 180, cm, 0... Start Date: 08/24/20 Stop Date: 08/31/20 Status: Ordered hydrOXYzine pamoate 25 mg oral capsule 2 capsule = 50 mg, By Mouth, 3 times a day, PRN Anxiety, for 7 days, # 30 capsule, 0 Refills, Acute08/31/20 11:49:00 EDT, 08/24/20 11:49:00 EDT, Capsule, [facility]/pharm[facility] #[id number], Partial fill upon patient request if the prescription is for a schedule II o... Start Date: 08/24/20 Stop Date: 08/31/20 Status: Ordered hydrOXYzine pamoate 50 mg oral capsule = 50 mg, By Mouth, 3 times a day, PRN Anxiety, # 90 capsule, 0 Refills, Maintenance, 08/24/20 11:49:00 EDT, Capsule, [facility]/pharm[facility] #[id number], Partial fill upon patient request if the prescription is for aschedule II opioid drug., 180, cm, 08/23/20 15:52:0... Start Date: 08/24/20 Status: Ordered methadone 10 mg oral tablet 45 mg, Tablet, By Mouth, Verified with [facility], 08/24/20 9:00:00 EDT Start Date: 08/24/20 Stop Date: 08/24/20 Status: Completed methadone 10 mg oral tablet 4.5 tablet = 45 mg, By Mouth, Daily, 0 Refills, Maintenance, 08/24/20 11:49:00 EDT, Tablet, Partialfill upon patient request if the prescription is for a schedule II opioid drug. Start Date: 08/24/20 Status: Ordered oxyCODONE 5 mg oral tablet 5 mg, Tablet, By Mouth, Every 6 hours, PRN for Pain , Moderate, Routine, 08/21/20 7:20:00 EST Start Date: 08/21/20 Stop Date: 08/24/20 Status: Discontinued SEROquel XR 200 mg oral tablet, extended release 400 mg, 2, tablet, By Mouth, Daily at bedtime, # 60 tablet, Refills 0, Tot. Refills 0, Maintenance,08/24/20 11:49:00 EDT, Route to Pharmacy Electronically, [facility]/pharm[facility] #[id number], Partial fill upon patient request if the prescription is for a schedule II... Start Date: 08/24/20 Status: Ordered traZODone 50 mg oral tablet 50 mg, 1, tablet, By Mouth, 2 times a day, # 14 tablet, Refills 0, Tot. Refills 0, Maintenance, 08/24/20 11:48:00 EDT, Route to Pharmacy Electronically, [facility]/pharmacy #[id number], Partial fill upon patient request if the [...] Reports Name Date Anaerobic Culture (ANAEROBIC CULTURE) 06/02 Wound Deep Culture w/ Gram Smear (DEEP W OUND CULTURE) 08/22/20 Anaerobic Culture (ANAEROBIC CULTURE) 08/18/20 Wound Deep Culture w/ Gram Smear (DEEP W OUND CULTURE) 08/18/20 Blood Culture 08/17/20 Blood Culture #2 08/17/20 Microbiology Reports TEST:Anaerobic Culture STATUS:Unauthenticated BODY SITE: SOURCE:ABSCES COLLECTED DATE/TIME:08/22/20 8:01 AM Anaerobic Culture SPECIMEN DESCRIPTION : ABSCESS LEFT FOREARM ABSCESS SPECIAL REQUESTS : OR SPECIMEN CULTURE : NO ANAEROBES ISOLATED SO FAR. REPORT STATUS : PRELIMINARY REPORT TEST:Deep Wound Culture STATUS:Auth (Verified) BODY SITE: SOURCE:ABSCES COLLECTED DATE/TIME:08/22/20 8:01 AM Deep Wound Culture SPECIMEN DESCRIPTION : ABSCESS LEFT FOREARM ABSCESS SPECIAL REQUESTS : NONE GRAM STAIN : 4+ POLYMORPHONUCLEAR LEUKOCYTES 1+ GRAM POSITIVE COCCI CULTURE : NO GROWTH 2 DAYS REPORT STATUS : FINAL 08/24/2020 TEST:Anaerobic Culture STATUS:Auth (Verified) BODY SITE: SOURCE:ABSCES COLLECTED DATE/TIME:08/18/20 9:03 AM Anaerobic Culture SPECIMEN DESCRIPTION : ABSCESS L ARM SPECIAL REQUESTS : OR SPECIMEN CULTURE : 4+ STREPTOCOCCUS VIRIDANS SPECIES SUSCEPTIBILITY TESTING NOT ROUTINELY PERFORMED ON THIS ISOLATE. 4+ PREVOTELLA(BACTEROIDES) BUCCAE SUSCEPTIBILITY TESTING NOT ROUTINELY PERFORMED ON THIS ISOLATE. IF SUSCEPTIBILITY IS REQUIRED ON THIS ISOLATE PLEASE CONTACT THE LABORATORY ([id number]) WITHIN 72 HOURS OF RECEIPT OF REPORT. REPORT STATUS : FINAL 08/23/2020 TEST:Deep Wound Culture STATUS:Auth (Verified) BODY SITE: SOURCE:ABSCES COLLECTED DATE/TIME:08/18/20 9:03 AM Deep Wound Culture SPECIMEN DESCRIPTION : ABSCESS LEFT ARM SPECIAL REQUESTS : OR SPECIMEN GRAM STAIN : 3+ POLYMORPHONUCLEAR LEUKOCYTES 3+ GRAM POSITIVE COCCI 3+ GRAM NEGATIVE RODS 1+ GRAM POSITIVE RODS CULTURE : 2+ STREPTOCOCCI, GROUP F BETA HEMOLYTIC. SUSCEPTIBILITY TESTING NOT ROUTINELY PERFORMED ON THIS ISOLATE. Please consult the laboratory ([phone]) within 7 days if more definitive studies are clinically indicated. REPORT STATUS : FINAL 08/20/2020 TEST:Blood Culture, Second Order STATUS:Auth (Verified) BODY SITE: SOURCE:Blood COLLECTED DATE/TIME:08/17/20 10:10 PM Blood Culture, Second Order SPECIMEN DESCRIPTION : BLOOD R UPPER ARM SPECIAL REQUESTS : NONE CULTURE : NO GROWTH 5 DAYS. REPORT STATUS : FINAL 2020 TEST:Blood Culture STATUS:Auth (Verified) BODY SITE: SOURCE:Blood COLLECTED DATE/TIME:08/17/20 8:22 PM Blood Culture SPECIMEN DESCRIPTION : BLOOD RT AC SPECIAL REQUESTS : NONE CULTURE : NO GROWTH 5 DAYS. REPORT STATUS : FINAL 2020 Vital Signs Most recent to oldest [Reference Range]: 1 2 3 Height 180 cm (08/23/20 3:52 PM) 180 cm (08/23/20 8:02 AM) 180 cm (08/22/20 6:55 AM) Weight 73 kg (08/22/20 6:55 AM) 73 kg (08/18/20 6:51 AM) 73 kg (08/18/20 6:32 AM) Oxygen Saturation [94-100 %] 100 % (08/24/20 7:00 AM) 98 % (08/23/20 11:00 PM) 92 % *L* (08/23/20 7:00 PM) Pulse Rate [55-90 bpm] 56 bpm (08/24/20 7:00 AM) 54 bpm *L* (08/23/20 11:00 PM) 77 bpm (08/23/20 7:00 PM) Body Mass Index [18.5-24.99] 22.53 (08/22/20 6:55 AM) 22.53 (08/18/20 6:51 AM) 22.53 (08/18/20 6:32 AM) Blood Pressure [90-138/55-84 mm Hg] 104/53mm Hg (08/24/20 7:00 AM) 116/60mm Hg (08/23/20 11:00 PM) 116/55mm Hg (08/23/20 7:00 PM) Respiratory Rate [16-30 br/min] 21 br/min (08/24/20 10:05 AM) 21 br/min (08/24/20 9:22 AM) 21 br/min (08/24/20 9:22 AM) Temperature [96.8-100.4 DegF] 98.2 DegF (08/24/20 7:00 AM) 97.7 DegF (08/23/20 11:00 PM) 98.4 DegF (08/23/20 7:00 PM) Liters per Minute 0 L/min (08/24/20 7:00 AM) 2 L/min (08/22/20 9:30 AM) 2 L/min (08/22/20 9:15 AM) Mode of Delivery (Oxygen) Room air (08/24/20 7:00 AM) Room air (08/23/20 11:00 PM) Room air (08/23/20 7:00 PM) Blood pressure sites Arm, right (08/24/20 7:00 AM) Arm, right (08/23/20 11:00 PM) Arm, right (08/23/20 7:00 PM) Temperature Route Oral (08/24/20 7:00 AM) Oral (08/23/20 11:00 PM) Oral (08/23/20 7:00 PM) Dry Weight 73 kg (08/22/20 6:55 AM) 73 kg (08/18/20 6:32 AM) 73 kg (08/18/20 2:50 AM) Social History Social History Type Response Smoking Status 5-9 cigarettes (betw een 1/4 to 1/2 pack)/day in last 30 days entered on: 07/17/20 Sex Male
--- OUTSIDE RECORDS SUMMARY | 2023-07-07 22:17 | XMS_ITS | Continuity of Care Document ---
Author Name Unknown Organization [facility] Address [address] [place] [address]- Care Team Providers Care Information Systems Technician Name Role Phone Sidney PHARMACEUTICAL OFFICER, Noemi Primary Care Physician Encounter [facility] [place] Date(s): 11/04/21 - 11/04/[address] [address]- Discharge Disposition: A-D/C AMA Attending Physician: Jessica CHILD, Paul Erwin Admitting Physician: Jessica CHILD, Paul Erwin Referring Physician: Not on Staff, Referring MD [...] 02/15/11 Given tetanus/diphtheria/pertussis, acel(Tdap) 01/26/08 Given Medications acetaminophen 325 mg oral tablet 650 mg, By Mouth, 3 times a day, Refills 0, Maintenance, 07/05/21 10:03:00 EST, Partial fill upon patient request if the prescription is for a schedule II opioid drug. Start Date: 07/05/21 Status: Ordered clindamycin 300 mg oral capsule 1 capsule = 300 mg, By Mouth, Every 6 hours, # 28 capsule, 0 Refills, Maintenance, 11/04/21 19:42:00 EDT, Capsule, [id number], Partial fill upon patient request if the prescription is for a schedule II opioid drug., 180, cm, 07/05/21 1:43:00 E... Start Date: 11/04/21 Stop Date: 11/11/21 Status: Ordered hydrOXYzine pamoate 50 mg oral capsule = 50 mg, By Mouth, 3 times a day, PRN Anxiety, # 90 capsule, 0 Refills, Maintenance, 08/24/20 11:49:00 EDT, Capsule, [id number], Partial fill upon patient request if the prescription is for aschedule II opioid drug., 180, cm, 08/23/20 15:52:0... Start Date: 08/24/20 Status: Ordered SEROquel XR [...] 1 2 3 Oxygen Saturation [94-100 %] 96 % (11/04/21 6:21 PM) 100 % (11/04/21 4:59 PM) 100 % (11/04/21 4:54 PM) Pulse Rate [55-90 bpm] 70 bpm (11/04/21 6:21 PM) 69 bpm (11/04/21 4:59 PM) 82 bpm (11/04/21 4:54 PM) Blood Pressure [90-138/55-84 mm Hg] 107/47mm Hg (11/04/21 6:21 PM) 118/50mm Hg (11/04/21 4:59 PM) Respiratory Rate [16-30 br/min] 16 br/min (11/04/21 6:21 PM) 18 br/min (11/04/21 4:59 PM) Temperature [96.8-100.4 DegF] 98.5 DegF (11/04/21 6:21 PM) 98.6 DegF (11/04/21 4:59 PM) Mode of Delivery (Oxygen) Room air (11/04/21 6:21 PM) Room air (11/04/21 4:59 PM) Room air (11/04/21 4:54 PM) Blood pressure sites Arm, left (11/04/21 6:21 PM) Arm, right (11/04/21 4:59 PM) Temperature Route Oral (11/04/21 6:21 PM) Oral (11/04/21 4:59 PM) Social History Social History Type Response Smoking Status 5-9 cigarettes (betw een 1/4 to 1/2 pack)/day in last 30 days entered on: 07/17/20 Sex Male
--- OUTSIDE RECORDS SUMMARY | 2023-07-07 22:17 | XMS_ITS | Continuity of Care Document ---
Author Name Unknown Organization [facility] Address [address] [place] [id number]- Care Team Providers Care Cbx Operator Name Role Phone Not on Staff, PCP Primary Care Physician Unavail able Encounter [facility] [place] Date(s): 02/04/21 - 02/05/[address] [address]- Discharge Disposition: A-D/C Walkout Attending Physician: Not [...] Refills, Maintenance, 08/24/20 11:49:00 EDT, Capsule, [id number], Partial fill upon patient request if the [...] Maintenance,08/24/20 11:49:00 EDT, Route to Pharmacy Electronically, [facility]pharmacy #[id number], Partial fill upon patient request if the prescription is for a schedule II... Start Date: 08/24/20 Status: Ordered traZODone 50 mg oral tablet 50 mg, 1, tablet, By Mouth, 2 times a day, # 14 tablet, Refills 0, Tot. Refills 0, Maintenance, 08/24/20 11:48:00 EDT, Route to Pharmacy Electronically, [facility]/pharmacy #[id number], Partial fill upon patient request if [...] for Microbiology Reports Name Date Blood Culture 02/04/21 Microbiology Reports TEST:Blood Culture STATUS:Unauthenticated BODY SITE: SOURCE:Blood COLLECTED DATE/TIME:02/04/21 9:07 PM Blood Culture SPECIMEN DESCRIPTION : BLOOD R ARM SPECIAL REQUESTS : NONE CULTURE : NO GROWTH AFTER 24 HOURS REPORT STATUS : PRELIMINARY REPORT Vital Signs Most recent to oldest [Reference Range]: 1 2 3 Height 180 cm (02/04/21 8:47 PM) Weight 61 kg (02/04/21 8:47 PM) Oxygen Saturation [94-100 %] 100 % (02/05/21 2:18 AM) 100 % (02/04/21 8:47 PM) 97 % (02/04/21 8:37 PM) Pulse Rate [55-90 bpm] 48 bpm *L* (02/05/21 2:18 AM) 100 bpm *H* (02/04/21 8:47 PM) 116 bpm *H* (02/04/21 8:37 PM) Blood Pressure [90-138/55-84 mm Hg] 102/59mm Hg (02/05/21 2:18 AM) 119/67mm Hg (02/04/21 8:47 PM) Respiratory Rate [16-30 br/min] 16 br/min (02/05/21 2:18 AM) 18 br/min (02/04/21 8:47 PM) 18 br/min (02/04/21 8:37 PM) Temperature [96.8-100.4 DegF] 97.6 DegF (02/05/21 2:18 AM) 98.9 DegF (02/04/21 8:47 PM) Mode of Delivery (Oxygen) Room air (02/05/21 2:18 AM) Room air (02/04/21 8:47 PM) Room air (02/04/21 8:37 PM) Blood pressure sites Arm, left (02/05/21 2:18 AM) Temperature Route Oral (02/05/21 2:18 AM) Oral (02/04/21 8:47 PM) Dry Weight 61 kg (02/04/21 8:47 PM) Social History Social History Type Response Smoking Status 5-9 cigarettes (betw een 1/4 to 1/2 pack)/day in last 30 days entered on: 07/17/20 Sex Male
--- OUTSIDE RECORDS SUMMARY | 2023-07-07 22:17 | XMS_ITS | Continuity of Care Document ---
Author Name Unknown Organization [facility] ter Address [address] [place] [address]- Care Team Providers Care Landing Gear Mechanic Name Role Phone Sidney TORREZ, Noemi Primary Care Physician Encounter [facility] Date(s): 06/03/22 - 06/04/[address] [address]- Discharge Disposition: A-D/C Walkout Attending Physician: Not [...] n pneumococcal 23-valent vaccine 02/15/11 Given Medications clindamycin 300 mg oral capsule 1 capsule = 300 mg, By Mouth, Every 6 hours, # 28 capsule, 0 Refills, Maintenance, 11/04/21 19:42:00 EDT, Capsule, [id number], Partial fill upon patient request if the prescription is for a schedule II opioid drug., 180, cm, 07/05/21 1:43:00 E... Start Date: 11/04/21 Stop Date: 11/11/21 Status: Ordered Problem List Condition Confirmation Course [...] Exam Date Time Procedure Performing Provider Status 06/04/22 12:12 AM Knee 1 or 2 Views Left Heidy Avilez; Auth (Verified) Notes: (Knee 1 or 2 Views Left) Reason For Exam: with Pain;Trauma RESULT: Knee 1 or 2 Views Left Knee 1 or 2 Views Left, 2 views Hx of Present Illness: Pt stated he struck his L knee on table 1 week ago, was in a program and they didn't do anything for it ; Reason: Trauma; with Pain; Clinical Question(s): Fracture COMPARISON: 02/06/2021 on 06/11/2013 FINDINGS: There is no evidence of acute or healing fracture, dislocation or bone lesion. No arthritic changes. No osteochondral defects or intra-articular loose bodies. Small joint effusion.0 0 IMPRESSION: Small joint effusion, but no acute osseous abnormality. I have personally reviewed the images and I agree with this report. WSN: [id number] Ordering Physician: Amara Huerta Dictated By: Rajinder Parker DO Dictated Date/Time: 06/04/22 7:58 am Reviewed By: Nura James MD Signed By: Nura James MD Signed Date/Time: 06/04/22 8:03 am Transcribed By: PINO Transcribed Date/Time: 06/04/22 7:53 am Vital Signs Most recent to oldest [Reference Range]: 1 2 Height 183 cm (06/03/22 11:25 PM) 183 cm (06/03/22 11:03 PM) Weight 94 kg (06/03/22 11:25 PM) 94 kg (06/03/22 11:03 PM) Oxygen Saturation [94-100 %] 100 % (06/03/22 11:03 PM) 99 % (06/03/22 11:00 PM) Pulse Rate [55-90 bpm] 96 bpm *H* (06/03/22 11:03 PM) 104 bpm *H* (06/03/22 11:00 PM) Body Mass Index [18.5-24.99 kg/m2] 28.07 kg/m2 *H* (06/03/22 11:03 PM) Blood Pressure [90-138/55-84 mm Hg] 146/ 79mm Hg *H* (06/03/22 11:03 PM) Respiratory Rate [16-30 br/min] 16 br/mi n (06/03/22 11:03 PM) Temperature [96.8-100.4 DegF] 98.0 DegF (06/03/22 11:03 PM) Mode of Delivery (Oxygen) Room air (06/03/22 11:03 PM) Blood pressure sites Arm, right (06/03/22 11:03 PM) Temperature Route Oral (06/03/22 11:03 PM) Dry Weight 94 kg (06/03/22 11:25 PM) 94 kg (06/03/22 11:03 PM) Weight Obtained Via Standing scale (06/03/22 11:03 PM) Dry Weight Obtained Via Standing scale (06/03/22 11:03 PM) Social History Social History Type Response Smoking Status 5-9 cigarettes (betw een 1/4 to 1/2 pack)/day in last 30 days entered on: 07/17/20 Sex Male XR Knee - left 1 or 2 Views * BHSPowerscribe , CIS S: TRANSCRINura Gold MD: VERIFY Rajinder Parker DO: SIGN Event Display: Result: Authored Date: [id number] Knee 1 or 2 Views Left, 2 views Hx of Present Illness: Pt stated he struck his L knee on table 1 week ago, was in a program and they didn't do anything for it ; Reason: Trauma; with Pain; Clinical Question(s): Fracture COMPARISON: 02/06/2021 on 06/11/2013 FINDINGS: There is no evidence of acute or healing fracture, dislocation or bone lesion. No arthritic changes. No osteochondral defects or intra-articular loose bodies. Small joint effusion.0 0 IMPRESSION: Small joint effusion, but no acute osseous abnormality. I have personally reviewed the images and I agree with this report. WSN: [id number] Ordering Physician: Amara Huerta Dictated By: Rajinder Parker DO Dictated Date/Time: 06/04/22 7:58 am Reviewed By: Nura James MD Signed By: Nura James MD Signed Date/Time: 06/04/22 8:03 am Transcribed By: PINO Transcribed Date/Time: 06/04/22 7:53 am Patient Care team information Care Team Personnel Name: Trudi Cohen RN Position: [facility] RN Member Role: Primary Care Nurse Name: Analy Johansen RN Position: [facility] RN Member Role: Primary Care Nurse Name: Thuy [place] RN Position: [facility] HBO Wound Member Role: Primary Care Nurse Name: Michael Freitas RN Position: [facility] RN Member Role: Primary Care Nurse Name: Antwan Garcia RN Position: [facility] RN Member Role: Primary Care Nurse Name: Noemi Little NP Position: Reference Physician Member Role: PCP Address: Address: [address] [place] [address]- Name: Margaux Casey RN Position: [facility] AMB Nurse Member Role: Primary Care Nurse Name: Roberth Catalan RN Position: [facility] RN Member Role: Primary Care Nurse Name: Sarah Coffey RN Position: [facility] RN Member Role: Primary Care Nurse Name: Yamini Bang RN Position: [facility] RN Member Role: Primary Care Nurse Name: Yanet Warren RN Position: [facility] RN Member Role: Primary Care Nurse Name: Troy Salinas RN Position: [facility] RN Member Role: Primary Care Nurse Address: Address: [address] [place] [address]- Name: Jennifer Millan RN Position: [facility] SN RN Member Role: Primary Care Nurse Name: Daly Meadows RN Position: [facility] Hospital Tungsten Tender Member Role: Primary Care Nurse Care Team Related Persons Name: JARVIS EREN Address: home [address] [place] [address] Name: AMARA JIN Address: [place] [address]
--- OUTSIDE RECORDS SUMMARY | 2023-07-07 22:17 | XMS_ITS | Continuity of Care Document ---
Author Name Unknown Organization [facility] Address [address] [place] [address]- Care Team Providers Care Senior Quality Assurance Engineer Name Role Phone Not on Staff, PCP Primary Care Physician Unavail able Encounter [facility] [place] Date(s): 01/23/21 - 01/23/[address] [address]- Discharge Disposition: A-D/C Walkout Attending Physician: Not [...] Refills, Maintenance, 08/24/20 11:49:00 EDT, [id number], Partial fill upon patient request if the [...] Maintenance,08/24/20 11:49:00 EDT, Route to Pharmacy Electronically, [facility]/pharmacy #[id number], Partial fill upon patient request if the prescription is for a schedule II... Start Date: 08/24/20 Status: Ordered traZODone 50 mg oral tablet 50 mg, 1, tablet, By Mouth, 2 times a day, # 14 tablet, Refills 0, Tot. Refills 0, Maintenance, 08/24/20 11:48:00 EDT, Route to Pharmacy Electronically, [facility]/pharmacy #[id number], Partial fill upon patient request if [...] 2 Oxygen Saturation [94-100 %] 100 % (01/23/21 11:30 AM) 100 % (01/23/21 11:05 AM) Pulse Rate [55-90 bpm] 55 bpm (01/23/21 11:30 AM) 72 bpm (01/23/21 11:05 AM) Blood Pressure [90-138/55-84 mm Hg] 112/ 51mm Hg (01/23/21 11:30 AM) Respiratory Rate [16-30 br/min] 16 br/mi n (01/23/21 11:30 AM) Temperature [96.8-100.4 DegF] 98.5 DegF (01/23/21 11:30 AM) Mode of Delivery (Oxygen) Room air (01/23/21 11:30 AM) Room air (01/23/21 11:05 AM) Blood pressure sites Arm, right (01/23/21 11:30 AM) Temperature Route Oral (01/23/21 11:30 AM) Social History Social History Type Response Smoking Status 5-9 cigarettes (betw een 1/4 to 1/2 pack)/day in last 30 days entered on: 07/17/20 Sex Male
--- OUTSIDE RECORDS SUMMARY | 2023-07-07 22:17 | XMS_ITS | Continuity of Care Document ---
Author Name Unknown Organization [facility] ter Address [address] [place] [address]- Care Team Providers Care Circus Roustabout Name Role Phone Sidney TORREZ, Noemi Primary Care Physician [place] [facility] [place] 01/14/22 - 01/15/[address] [address] Encounter Diagnosis IVDU (intravenous drug user)(Final) - 01/14/22 General medical exam(Final) - 01/14/22 Cellulitis(Final) - 01/14/22 Abscess(Final) - 01/14/22 Discharge Disposition: A-D/C AMA Attending Physician: Morteza Olivares MD, Khai Admitting Physician: Altaf Wilson MD Referring Physician: Not on Staff, Referring [...] Refills, Maintenance, 11/04/21 19:42:00 EDT, [id number], Partial fill upon patient request if the prescription is for a schedule II opioid drug., 180, cm, 07/05/21 1:43:00 E... Start Date: 11/04/21 Stop Date: 11/11/21 Status: Ordered Problem List Condition Effective Dates [...] Reports Name Date Anaerobic Culture (ANAEROBIC CULTURE) 01/15/22 Fungal Culture, Nonrespiratory (FUNGAL C ULT,NON-RESPIRATORY) 01/15/22 Tissue Culture w/ Gram Smear (TISSUE/BIO PSY CULT.) 01/15/22 Blood Culture 01/14/22 Blood Culture #2 01/14/22 Blood Culture 01/14/22 Microbiology Reports TEST:Anaerobic Culture STATUS:Unauthenticated BODY SITE: SOURCE:TISSUE1 COLLECTED DATE/TIME:01/15/22 8:00 AM Anaerobic Culture SPECIMEN DESCRIPTION : TISSUE LEFT ELBOW AC FLUID SPECIAL REQUESTS : OR SPECIMEN REPORT STATUS : PRELIMINARY REPORT TEST:Tissue/Biopsy Culture STATUS:Unauthenticated BODY SITE: SOURCE:TISSUE1 COLLECTED DATE/TIME:01/15/22 8:00 AM Tissue/Biopsy Culture SPECIMEN DESCRIPTION : TISSUE LEFT ELBOW AC FLUID SPECIAL REQUESTS : OR SPECIMEN GRAM STAIN : 4+ POLYMORPHONUCLEAR LEUKOCYTES 2+ GRAM POSITIVE COCCI CRITICAL VALUE CALLED AND VERIFIED BY READBACK FOR: [employer] [id number],TECH 357,01/15/22 @1236. REPORT STATUS : PRELIMINARY REPORT TEST:Fungal Culture, Non-Respiratory STATUS:Unauthenticated BODY SITE: SOURCE:TISSUE1 COLLECTED DATE/TIME:01/15/22 8:00 AM Fungal Culture, Non-Respiratory SPECIMEN DESCRIPTION : TISSUE LEFT ELBOW AC FLUID SPECIAL REQUESTS : OR SPECIMEN DIRECT EXAM : NO FUNGAL ELEMENTS OBSERVED REPORT STATUS : PRELIMINARY REPORT TEST:Blood Culture, Second Order STATUS:Unauthenticated BODY SITE: SOURCE:Blood COLLECTED DATE/TIME:01/14/22 11:15 AM Blood Culture, Second Order SPECIMEN DESCRIPTION : BLOOD LHAND SPECIAL REQUESTS : NONE CULTURE : NO GROWTH AFTER 24 HOURS REPORT STATUS : PRELIMINARY REPORT TEST:Blood Culture STATUS:Unauthenticated BODY SITE: SOURCE:Blood COLLECTED DATE/TIME:01/14/22 10:45 AM Blood Culture SPECIMEN DESCRIPTION : BLOOD R FOREARM SPECIAL REQUESTS : NONE CULTURE : NO GROWTH AFTER 24 HOURS REPORT STATUS : PRELIMINARY REPORT TEST:Blood Culture STATUS:Unauthenticated BODY SITE: SOURCE:Blood COLLECTED DATE/TIME:01/14/22 4:30 AM Blood Culture SPECIMEN DESCRIPTION : BLOOD NO SITE SPECIAL REQUESTS : NONE CULTURE : NO GROWTH AFTER 24 HOURS REPORT STATUS : PRELIMINARY REPORT Radiology Reports * Exam Date Time Procedure Performing Provider Status 01/14/22 12:12 PM Forearm 2 Views Left Jordan , Loren; Auth (Verified) Notes: (Forearm 2 Views Left) Reason For Exam: Foreign Body RESULT: Forearm 2 Views Left Forearm 2 Views Left Hx of Present Illness: pt reports bilateral arm abcess located near AC, right one pt drained yellowblood clear currently oozing, left one golf size- not draining, redness noted to bilateral arms. HX: IV drug use; Reason: Foreign Body; Clinical Question(s): Foreign Body; [place] COMPARISON: 01/23/2021 FINDINGS: No osseous erosion. No evidence of radiopaque foreign body or soft tissue gas. Soft tissue swelling anterior soft tissues of the distal arm IMPRESSION: No osseous abnormality. No evidence of radiopaque foreign body or soft tissue gas. Soft tissue swelling within the anterior soft tissues of the distal arm WSN: [id number] Ordering Physician: Bill Montano Dictated By: Derrick Lopez MD Dictated Date/Time: 01/14/22 1:22 pm Reviewed By: Derrick Lopez MD Signed By: Derrick Lopez MD Signed Date/Time: 01/14/22 1:22 pm Transcribed By: PINO Transcribed Date/Time: 01/14/22 1:19 pm * Exam Date Time Procedure Performing Provider Status 01/14/22 12:12 PM Forearm 2 Views Right Jordan , Loren ; Auth (Verified) Notes: (Forearm 2 Views Right) Reason For Exam: Foreign Body RESULT: Forearm 2 Views Right Forearm 2 Views Right Hx of Present Illness: pt reports bilateral arm abcess located near AC, right one pt drained yellowblood clear currently oozing, left one golf size- not draining, redness noted to bilateral arms. HX: IV drug use; Reason: Foreign Body; Clinical Question(s): Foreign Body; [place] COMPARISON: 07/03/2021 FINDINGS: No evidence of fracture. No osseous erosion. Locules of soft tissue gas within the volar and radialsoft tissues of the proximal forearm IMPRESSION: No osseous abnormality. Soft tissue gas in the proximal forearm. Cortexted to Dr. Montano at the time of dictation WSN: [id number] Ordering Physician: Bill Montano Dictated By: Derrick Lopez MD Dictated Date/Time: 01/14/22 1:19 pm Reviewed By: Derrick Lopez MD Signed By: Derrick Lopez MD Signed Date/Time: 01/14/22 1:19 pm Transcribed By: PINO Transcribed Date/Time: 01/14/22 1:17 pm Vital Signs Most recent to oldest [Reference Range]: 1 2 3 Height 180 cm (01/15/22 9:58 AM) 180 cm (01/15/22 7:37 AM) 180 cm (01/14/22 6:30 PM) Weight 63.4 kg (01/15/22 7:37 AM) 67.2 kg (01/14/22 6:05 PM) 67.2 kg (01/14/22 1:36 PM) Oxygen Saturation [94-100 %] 100 % (01/15/22 9:58 AM) 100 % (01/15/22 9:15 AM) 100 % (01/15/22 9:00 AM) Pulse Rate [55-90 bpm] 72 bpm (01/15/22 9:58 AM) 61 bpm (01/15/22 7:37 AM) 52 bpm *L* (01/14/22 8:00 PM) Body Mass Index [18.5-24.99] 19.57 (01/15/22 7:37 AM) 20.74 (01/14/22 6:05 PM) 20.74 (01/14/22 1:36 PM) Blood Pressure [90-138/55-84 mm Hg] 139/89mm Hg *H* (01/15/22 9:58 AM) 120/79mm Hg (01/15/22 9:00 AM) 118/73mm Hg (01/15/22 8:45 AM) Respiratory Rate [16-30 br/min] 18 br/min (01/15/22 9:58 AM) 19 br/min (01/15/22 9:00 AM) 17 br/min (01/15/22 8:45 AM) Temperature [96.8-100.4 DegF] 98.6 DegF (01/15/22 9:58 AM) 97.9 DegF (01/15/22 8:30 AM) 99.1 DegF (01/15/22 7:37 AM) Liters per Minute 0 L/min (01/15/22 8:45 AM) 6 L/min (01/15/22 8:30 AM) Mode of Delivery (Oxygen) Room air (01/15/22 9:58 AM) Room air (01/15/22 9:15 AM) Room air (01/15/22 9:00 AM) Blood pressure sites Arm, right (01/15/22 9:58 AM) Arm, right (01/15/22 8:30 AM) Arm, left (01/15/22 7:37 AM) Temperature Route Oral (01/15/22 9:58 AM) Temporal (01/15/22 8:30 AM) Temporal (01/15/22 7:37 AM) Dry Weight 63.4 kg (01/15/22 7:37 AM) 67.2 kg (01/14/22 6:05 PM) 67.2 kg (01/14/22 1:36 PM) Weight Obtained Via Standing scale (01/14/22 3:40 AM) Dry Weight Obtained Via Standing scale (01/15/22 7:37 AM) Standing scale (01/14/22 3:40 AM) Social History Social History Type Response Smoking Status 5-9 cigarettes (betw een 1/4 to 1/2 pack)/day in last 30 days entered on: 07/17/20 Sex Male
--- OUTSIDE RECORDS SUMMARY | 2023-07-07 22:17 | XMS_ITS | Continuity of Care Document ---
Author Name Unknown Organization [facility] Address [address] [place] [id number]- Care Team Providers Care Contract Graphic Designer Name Role Phone Sidney TORREZ, Noemi Primary Care Physician En[place] [facility] [place] [facility] [place] Date(s): 06/05/23 - 06/05/[address] [address]- Encounter Diagnosis IVDU (intravenous drug user)(Final) - 06/05/23 Discharge Disposition: A-D/C Home Attending Physician: Mahesh Cleary DO Admitting Physician: Mahesh Cleary DO Referring Physician: Not on Staff, Referring MD Allergies, Adverse Reactions, Alerts Substance Reaction Severity Status ibuprofen Active aspirin SWELLING Active Miscellaneous enteral foods hot sauce Active Other Environmental Allergy mace Active Other Food Allergy 1, 2, 3 A ctive 1hot peppers only-- regular peppers and pepper [...] Exam Date Time Procedure Performing Provider Status 06/05/23 4:00 AM MRI Lumbar Spine W/O Contrast Vivian Gunter; Auth (Verified) Notes: (MRI Lumbar Spine W/O Contrast) Reason For Exam: Back Pain RESULT: MRI Lumbar Spine W/O Contrast MRI Thoracic Spine W/O Contrast, MRI Lumbar Spine W/O Contrast Hx of Present Illness: Pt did cocaine; Reason: Back Pain; Clinical Question(s): Epidural Empyema; Special Instructions: approved by vice president of manufacturing Robin Arellano; Order Comment: Please see Reference Text for complete list of contraindications bl-scan v-rad tiger text mahesh cleary-(att) on 06 05 2023 07:08:14 EST. / Epidural Empyema TECHNIQUE: MRI of the thoracic and lumbar spine was performed without intravenous contrast utilizing sagittal T1, sagittal T2, sagittal STIR, axial T1, and axial T2-weighted sequences. The patient declined further imaging. Therefore, no postcontrast sequences. COMPARISON: None. 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 There are 7 cervical vertebral bodies, with small cervical ribs at C7. THORACIC SPINE: ALIGNMENT, VERTEBRAE, MARROW, AND DISCS: The T2 and T3 vertebrae are small and partially fused, congenital. Otherwise, vertebral bodies are normal in height and alignment. There is no significant marrow signal abnormality. There is a partially formed disc at the T2-T3 level. Otherwise, the intervertebral discs are maintained. 12 rib-bearing thoracic vertebral bodies. CORD: The thoracic cord is normal in signal and contour. PARASPINAL TISSUES: Visualized paraspinal soft tissues are unremarkable. FINDINGS BY LEVEL: No significant central stenosis or neural foraminal narrowing is seen at any level in the thoracic spine. LUMBAR SPINE: ALIGNMENT, VERTEBRAE, MARROW, AND DISCS: There are 5 lumbar-type vertebral bodies. Minimal grade 1 anterolisthesis of L5 on S1 L5 spondylolysis. Alignment is otherwise maintained. Vertebral body heights are preserved. There is no significant marrow signal abnormality. Intervertebral discs are maintained. CONUS: The conus is normal in signal and contour, with normal level of termination at L1. PARASPINAL TISSUES: The paraspinal soft tissues are unremarkable. Subcentimeter right renal cyst. DETAILED FINDINGS BY LEVEL: L1-L2: No significant canal stenosis or neural foraminal narrowing. L2-L3: No significant canal stenosis or neural foraminal narrowing. L3-L4: No significant canal stenosis or neural foraminal narrowing. L4-L5: Facet arthropathy. No significant canal stenosis or neural foraminal narrowing. L5-S1: Facet arthropathy. No significant canal stenosis or neural foraminal narrowing. IMPRESSION: No evidence of discitis/osteomyelitis in the thoracic or lumbar spine. Facet arthropathy at L4-L5. Minimal anterolisthesis of L5 on S1 with chronic L5 spondylolysis. 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 Cervical ribs at C7. WSN: [id number] Ordering Physician: Justina Kramer Dictated By: Soco Orr MD Dictated Date/Time: 06/05/23 11:05 a Reviewed By: Soco Orr MD Signed By: Soco Orr MD Signed Date/Time: 06/05/23 11:05 am Transcribed By: PINO Transcribed Date/Time: 06/05/23 10:49 am * Exam Date Time Procedure Performing Provider Status 06/05/23 4:00 AM MRI Thoracic Spine W/O Contrast Vivian Gunter; Auth (Verified) Notes: (MRI Thoracic Spine W/O Contrast) Reason For Exam: Back Pain RESULT: MRI Thoracic Spine W/O Contrast MRI Thoracic Spine W/O Contrast, MRI Lumbar Spine W/O Contrast Hx of Present Illness: Pt did cocaine; Reason: Back Pain; Clinical Question(s): Epidural Empyema; Special Instructions: approved by vice president of manufacturing Robin Arellano; Order Comment: Please see Reference Text for complete list of contraindications bl-scan v-rad tiger text mahesh cleary-(att) on 06 05 2023 07:08:14 EST. / Epidural Empyema TECHNIQUE: MRI of the thoracic and lumbar spine was performed without intravenous contrast utilizing sagittal T1, sagittal T2, sagittal STIR, axial T1, and axial T2-weighted sequences. The patient declined further imaging. Therefore, no postcontrast sequences. COMPARISON: None. 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 There are 7 cervical vertebral bodies, with small cervical ribs at C7. THORACIC SPINE: ALIGNMENT, VERTEBRAE, MARROW, AND DISCS: The T2 and T3 vertebrae are small and partially fused, congenital. Otherwise, vertebral bodies are normal in height and alignment. There is no significant marrow signal abnormality. There is a partially formed disc at the T2-T3 level. Otherwise, the intervertebral discs are maintained. 12 rib-bearing thoracic vertebral bodies. CORD: The thoracic cord is normal in signal and contour. PARASPINAL TISSUES: Visualized paraspinal soft tissues are unremarkable. FINDINGS BY LEVEL: No significant central stenosis or neural foraminal narrowing is seen at any level in the thoracic spine. LUMBAR SPINE: ALIGNMENT, VERTEBRAE, MARROW, AND DISCS: There are 5 lumbar-type vertebral bodies. Minimal grade 1 anterolisthesis of L5 on S1 L5 spondylolysis. Alignment is otherwise maintained. Vertebral body heights are preserved. There is no significant marrow signal abnormality. Intervertebral discs are maintained. CONUS: The conus is normal in signal and contour, with normal level of termination at L1. PARASPINAL TISSUES: The paraspinal soft tissues are unremarkable. Subcentimeter right renal cyst. DETAILED FINDINGS BY LEVEL: L1-L2: No significant canal stenosis or neural foraminal narrowing. L2-L3: No significant canal stenosis or neural foraminal narrowing. L3-L4: No significant canal stenosis or neural foraminal narrowing. L4-L5: Facet arthropathy. No significant canal stenosis or neural foraminal narrowing. L5-S1: Facet arthropathy. No significant canal stenosis or neural foraminal narrowing. IMPRESSION: No evidence of discitis/osteomyelitis in the thoracic or lumbar spine. Facet arthropathy at L4-L5. Minimal anterolisthesis of L5 on S1 with chronic L5 spondylolysis. 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 Cervical ribs at C7. WSN: [id number] Ordering Physician: Justnia Kramer Dictated By: Soco Orr MD Dictated Date/Time: 06/05/23 11:05 a Reviewed By: Soco Orr MD Signed By: Soco Orr MD Signed Date/Time: 06/05/23 11:05 am Transcribed By: PINO Transcribed Date/Time: 06/05/23 10:49 am Vital Signs Most recent to oldest [Reference Range]: 1 2 Oxygen Saturation [94-100 %] 98 % (06/05/23 6:42 AM) 99 % (06/05/23 1:05 AM) Pulse Rate [55-90 bpm] 72 bpm (06/05/23 6:42 AM) 76 bpm (06/05/23 1:05 AM) Blood Pressure [90-138/55-84 mm Hg] 119/ 61mm Hg (06/05/23 6:42 AM) 128/75mm Hg (06/05/23 1:05 AM) Respiratory Rate [16-30 br/min] 18 br/mi n (06/05/23 6:42 AM) Temperature [96.8-100.4 DegF] 97.5 DegF (06/05/23 1:05 AM) Mode of Delivery (Oxygen) Room air (06/05/23 6:42 AM) Room air (06/05/23 1:05 AM) Blood pressure sites Arm, left (06/05/23 1:05 AM) Temperature Route Oral (06/05/23 1:05 AM) Social History Social History Type Response Smoking Status 5-9 cigarettes (betw een 1/4 to 1/2 pack)/day in last 30 days entered on: 07/17/20 Sex Male Note * Justina Kramer DO: PERFORM Event Display: Patient Education Leaflets Authored Date: [id number] Back Pain (Acute or Chronic) ?? [id number] Back Pain (Acute or Chronic) Back pain is one of the most common problems. The good news is that most people feel better in 1 to2 weeks, and most of the rest in 1 to 2 months. Most people can remain active. People who have pain??describe it differently???not??everyone is the same. ??? The pain can be sharp, stabbing, shooting, aching, cramping or burning. ??? Movement, standing,bending, lifting, sitting, or walking may worsen pain. ??? It can be limited to one spot or area, or it can be more generalized. ??? It can spread upwards, to the front, or go down your arms or legs (sciatica). ??? It can cause muscle spasm. Most of the time, mechanical problems with the muscles??or spine cause the pain. Mechanical problems??are usually caused by an injury to the muscles or ligaments. Illness can cause back pain, but it's usually not caused by a serious illness. Mechanical problems include:? Physical activity such as sports, exercise, work, or normal activity ??? Overexertion, lifting,pushing, pulling incorrectly or too aggressively ??? Sudden twisting, bending, or stretching from an accident, or accidental movement ??? Poor posture ??? Stretching or moving wrong, without noticingpain at the time ??? Poor coordination, lack of regular exercise (check with your doctor about this) ??? Spinal disc disease or arthritis ??? Stress Pain can also be related to , or illness such as appendicitis, bladder or kidney infections, kidney stones, and pelvic infections. Acute back pain usually gets better in??1 to 2 weeks. Back pain related to disk disease, arthritis in the spinal joints, or narrowing of the spinal canal (spinal stenosis) can become chronic and lastfor months or years. Unless you had a physical injury such as a car accident or fall, X-rays are usually not needed for the first assessment of back pain. If pain continues and does not respond to medical treatment, you may need X-rays and other tests. Home care Try this home care advice: ??? When in bed, try??to find a position of comfort. A firm mattress is best. Try lying flat on your back with pillows under your knees. You can also try lying on your side with your knees bent up toward your chest and a pillow between your knees. ??? At first, don't try to stretch out the sore spots. If there is a strain, it's not like the good soreness you get after exercising without an injury. In this case, stretching may make it worse. ??? Don't sit for long periods, as in a long car ride or during other??travel. This puts more stress on the lower back than standing or walking. ??? During the first 24 to 72 hours after an acute injury or flare up of chronic back pain, apply an ice pack to the painful area for 20 minutes and then remove it for 20 minutes. Do this over a period of 60 to 90 minutes or several times a day. This will reduce swelling and pain. Wrap the ice pack in a thintowel or plastic to protect your skin. ??? You can start with ice, then switch to heat. Heat (hot shower, hot bath, or heating pad) reduces pain and works well for muscle spasms. Heat can be applied to the painful area for 20 minutes then remove it for 20 minutes. Do this over a period of 60 to 90 minutes or several times a day. Don't sleep on a heating pad. It can lead to skin mcconnell or tissue damage. ??? You can alternate ice and heat therapy. Talk with your doctor about??the best treatment for your back pain. ??? Therapeutic massage can help relax the back muscles without stretching them. ??? Be aware of safe lifting methods. Don't lift anything without stretching first. Medicines Talk to your doctor before using medicine, especially if you have other medical problems or are taking other medicines. ??? You may use lihm-qya-dfaiini medicine as directed on the bottle to control pain, unless another pain medicine was prescribed. Talk with your healthcare provider before using these medicines if you have chronic conditions such as diabetes, liver or kidney disease, stomach ulcers, or digestive bleeding. Also talk with your provider if you take blood thinners. ??? Be careful if you are given a prescription medicines, narcotics, or medicine for muscle spasms. They can cause drowsiness, affect your coordination, reflexes, and judgment. Don't drive or operate heavy machinery. ?? Follow-up care Follow up with your healthcare provider, or as advised.?? If X-rays were taken, you will be told of any new findings that may affect your care. ?? Call 911 Call 911 if any of the following occur: ??? Trouble breathing ??? Confusion ??? Very drowsy or trouble awakening ??? Fainting or loss of consciousness ??? Rapid or very slow heart rate ??? Loss of bowel or bladder control ?? When to seek medical advice Call your healthcare provider right away if any of these occur:? Pain gets worse or spreads toyour legs ??? Your bowel or bladder control changes ??? Fever ??? Blood in your urine ??? Weakness or numbness in one or both legs ??? Numbness in the groin or genital area ?? Last Reviewed Date: 2021 ?? [id number] [employer]. All rights reserved. This information is not intended as a substitute for professional medical care. Always follow your healthcare professional's instructions. ?? Patient Care team information Care Team Personnel Name: Yanet Richardson RN Position: [facility] SN RN Member Role: Primary Care Nurse Name: Analy Johansen RN Position: [facility] RN Member Role: Primary Care Nurse Name: Thuy Houston RN Position: [facility] HBO Wound Member Role: Primary Care Nurse Name: Michael Freitas RN Position: [facility] RN Member Role: Primary Care Nurse Name: Antwan Garcia RN Position: [facility] RN Member Role: Primary Care Nurse Name: Noemi Little NP Position: Reference Physician Member Role: PCP Address: Address: [address] [place] [id number] Name: Jesse Dumas RN Position: [facility] RN Member Role: Primary Care Nurse Name: Margaux Casey RN Position: [facility] AMB Nurse Member Role: Primary Care Nurse Name: Roberth Catalan RN Position: [facility] RN Member Role: Primary Care Nurse Name: Sarah Coffey RN Position: [facility] RN Member Role: Primary Care Nurse Name: Yamini Bang RN Position: [facility] RN Member Role: Primary Care Nurse Name: Troy Salinas RN Position: [facility] RN Member Role: Primary Care Nurse Address: Address: [address] [place] [address]- [place] Name: Jennifer Millan RN Position: [facility] SN RN Member Role: Primary Care Nurse Name: Daly Meadows RN Position: [facility] Hospital Account Assistant Member Role: Primary Care Nurse Name: Justina Kramer DO Position: [facility] Resident Member Role: ED Resident Address: Address: [address] [place] [id number]- [place] Name: Alba Collins RN Position: [facility] ED RN W/OE and Tasks Member Role: Patient Care Provider Name: Mayuri Busby Position: [facility] ED TA [facility] Name: Mahesh Cleary DO Position: [facility] ED Medicine MD Member Role: ED Physician Address: Address: [address] [place] [id number]- Care Team Related Persons Name: EREN CONLEY Address: home [address] [place] [address] Name: AMARA JIN Address: [place] [address]
--- OUTSIDE RECORDS SUMMARY | 2023-07-07 22:17 | XMS_ITS | Continuity of Care Document ---
Author Name Unknown Organization [facility] Address [address] [place] [id number]- Care Team Providers Care B2B Sales Representative Name Role Phone Sidney TORREZ, Noemi Primary Care Physician Encounter [facility] [place] Date(s): 11/03/21 - 11/04/[address] [address]- Discharge Disposition: A-D/C Walkout Attending Physician: Not [...] Refills, Maintenance, 11/04/21 19:42:00 EDT, Capsule, [id number], Partial fill upon patient request if the prescription is for a schedule II opioid drug., 180, cm, 07/05/21 1:43:00 E... Start Date: 11/04/21 Stop Date: 11/11/21 Status: Ordered hydrOXYzine pamoate 50 mg oral capsule = 50 mg, By Mouth, 3 times a day, PRN Anxiety, # 90 capsule, 0 Refills, Maintenance, 08/24/20 11:49:00 EDT, Capsule, [id number], Partial fill upon patient request [...] Thorax(Confirmed) 12/17/10 Active Hepatitis C(Confirmed) Active Results Radiology Reports * Exam Date Time Procedure Performing Provider Status 11/04/21 2:36 AM Ankle Min 3 Views Right Nakia Callejas ; Auth (Verified) Notes: (Ankle Min 3 Views Right) Reason For Exam: with Pain;Trauma RESULT: Ankle Min 3 Views Right Ankle Min 3 Views Right Hx of Present Illness: redness and swelling to right medial ankle from injecting cocaine 3 days ago; Reason: Trauma; with Pain; Clinical Question(s): Fracture; foreign body (injected cocaine in the area) COMPARISON: None. FINDINGS: No evidence of acute or healing fracture or bone lesion. No radiopaque foreign body. Intact ankle mortise and talar dome. Focal soft tissue swelling at the medial aspect of the distal leg. IMPRESSION: No radiopaque foreign body. Focal soft tissue swelling at the medial aspect of the distal leg. WSN: [id number] Ordering Physician: Dillon Powers Dictated By: Nura James MD Dictated Date/Time: 11/04/21 8:24 am Reviewed By: Nura James MD Signed By: Nura James MD Signed Date/Time: 11/04/21 8:24 am Transcribed By: PINO Transcribed Date/Time: 11/04/21 8:23 am Vital Signs Most recent to oldest [Reference Range]: 1 2 3 Weight 68.5 kg (11/03/21 10:50 PM) 68.5 kg (11/03/21 10:43 PM) Oxygen Saturation [94-100 %] 100 % (11/04/21 6:12 AM) 100 % (11/04/21 3:36 AM) 98 % (11/04/21 12:44 AM) Pulse Rate [55-90 bpm] 56 bpm (11/04/21 6:12 AM) 80 bpm (11/04/21 3:36 AM) 64 bpm (11/04/21 12:44 AM) Blood Pressure [90-138/55-84 mm Hg] 97/64mm Hg (11/04/21 6:12 AM) 103/60mm Hg (11/04/21 3:36 AM) 100/48mm Hg (11/04/21 12:44 AM) Respiratory Rate [16-30 br/min] 18 br/min (11/03/21 10:43 PM) Temperature [96.8-100.4 DegF] 98.6 DegF (11/04/21 6:12 AM) 97.7 DegF (11/04/21 3:36 AM) 97.4 DegF (11/04/21 12:44 AM) Mode of Delivery (Oxygen) Room air (11/04/21 6:12 AM) Room air (11/04/21 3:36 AM) Room air (11/04/21 12:44 AM) Blood pressure sites Arm, right (11/04/21 6:12 AM) Arm, right (11/04/21 3:36 AM) Arm, right (11/04/21 12:44 AM) Temperature Route Temporal (11/04/21 6:12 AM) Oral (11/04/21 3:36 AM) Temporal (11/04/21 12:44 AM) Social History Social History Type Response Smoking Status 5-9 cigarettes (betw een 1/4 to 1/2 pack)/day in last 30 days entered on: 07/17/20 Sex Male
--- OUTSIDE RECORDS SUMMARY | 2023-07-07 22:17 | XMS_ITS | Continuity of Care Document ---
Author Name Unknown Organization [facility] ter Address [address] [place] [id number]- Care Team Providers Care Testing And Regulating Chief Name Role Phone Sidney TORREZ, Noemi Primary Care Physician [phone] Encounter [facility] Date(s): 07/03/21 - 07/05/[address] [id number]- Discharge Disposition: A-D/C Home Attending Physician: Kirk Mejia MD Admitting Physician: Pako CHILD, Shyla Referring Physician: Not on Staff, Referring MD [...] opioid drug. Start Date: 07/05/21 Status: Ordered Acetaminophen Tablet 650 mg, Tablet, By Mouth, 07/05/21 9:00:00 EST Start Date: 07/05/21 Stop Date: 07/05/21 Status: Completed doxycycline hyclate 100 mg oral enteric coated tablet 2 tablet = 200 mg, By Mouth, Daily, for 5 days, # 10 tablet, 0 Refills, Acute 07/10/21 10:04:00 EST, 07/05/21 10:04:00 EST, CR Tablet, [id number], Partial fill upon patient request if the prescription is for a schedule II opioid drug., 180, cm... Start Date: 07/05/21 Stop Date: 07/10/21 Status: Ordered hydrOXYzine pamoate 50 mg oral capsule = 50 mg, By Mouth, 3 times a day, PRN Anxiety, # 90 capsule, 0 Refills, Maintenance, 08/24/20 11:49:00 EDT, Capsule, [id number], Partial fill upon patient request if the prescription is for aschedule II opioid drug., 180, cm, 08/23/20 15:52:0... Start Date: 08/24/20 Status: Ordered oxyCODONE 5 mg oral tablet 2.5 mg, 0.5, tablet, By Mouth, Every 6 hours, PRN, for 3 days, # 7 tablet, Refills 0, Tot. Refills 0, Acute 07/08/21 10:04:00 EST, Pain , Severe, 07/05/21 10:04:00 EST, Route to Pharmacy Electronically, [facility]pharmacy #[id number], Partial fill upon patient re... Start Date: 07/05/21 Stop Date: 07/08/21 Status: Ordered oxyCODONE 5 mg oral tablet 5 mg, Tablet, By Mouth, Every 6 hours, PRN for Pain , Severe, Routine, 07/03/21 16:31:00 EST Start Date: 07/03/21 Stop Date: 07/05/21 Status: Discontinued SEROquel XR 200 mg oral tablet, extended release 400 mg, 2, tablet, By Mouth, Daily at bedtime, # 60 tablet, Refills 0, Tot. Refills 0, Maintenance,08/24/20 11:49:00 EDT, Route to Pharmacy Electronically, [facility]/pharmacy #[id number], Partial fill upon patient request if the prescription is for a schedule II... Start Date: 08/24/20 Status: Ordered traZODone 50 mg oral tablet 50 mg, 1, tablet, By Mouth, 2 times a day, # 14 tablet, Refills 0, Tot. Refills 0, Maintenance, 08/24/20 11:48:00 EDT, Route to Pharmacy Electronically, [facility]/pharmacy #[id number], Partial fill upon patient request [...] for Microbiology Reports Name Date Blood Culture #2 07/03/21 Blood Culture 07/03/21 Microbiology Reports TEST:Blood Culture, Second Order STATUS:Unauthenticated BODY SITE: SOURCE:Blood COLLECTED DATE/TIME:07/03/21 10:40 AM Blood Culture, Second Order SPECIMEN DESCRIPTION : BLOOD L AC SPECIAL REQUESTS : NONE CULTURE : NO GROWTH AFTER 48 HOURS REPORT STATUS : PRELIMINARY REPORT TEST:Blood Culture STATUS:Unauthenticated BODY SITE: SOURCE:Blood COLLECTED DATE/TIME:07/03/21 5:34 AM Blood Culture SPECIMEN DESCRIPTION : BLOOD L ARM SPECIAL REQUESTS : NONE CULTURE : NO GROWTH AFTER 48 HOURS REPORT STATUS : PRELIMINARY REPORT Radiology Reports * Exam Date Time Procedure Performing Provider Status 07/03/21 9:34 AM Elbow Min 3 Views Right Victoriano Pineda r; Auth (Verified) Notes: (Elbow Min 3 Views Right) Reason For Exam: Pain RESULT: Elbow Min 3 Views Right Elbow Min 3 Views Right, 3 views Hx of Present Illness: R hand and R inner arm pain edema since yesterday. current IVDA; Reason: Pain; Clinical Question(s): Foreign Body; h o IVDU, evaluate for foreign body COMPARISON: Prior radiographs of the right elbow dated January 16, 2020. FINDINGS: No fracture or dislocation. No arthritic changes. No joint effusion. IMPRESSION: Unremarkable appearance of the right elbow. No fracture, radiopaque foreign body, or subcutaneous emphysema. WSN: [id number] Ordering Physician: Shama Jiang Dictated By: Jordan Lawler MD Dictated Date/Time: 07/04/21 7:38 am Reviewed By: Jordan Lawler MD Signed By: Jordan Lawler MD Signed Date/Time: 07/04/21 7:38 am Transcribed By: PINO Transcribed Date/Time: 07/04/21 7:37 am * Exam Date Time Procedure Performing Provider Status 07/03/21 9:34 AM Hand Min 3 Views Right Matsuk , Jack ; Auth (Verified) Notes: (Hand Min 3 Views Right) Reason For Exam: Foreign Body RESULT: Hand Min 3 Views Right Hand Min 3 Views Right, 3 views Hx of Present Illness: R hand and R inner arm pain edema since yesterday. current IVDA; Reason: Foreign Body; Clinical Question(s): Foreign Body; h o IVDU, evaluate for foreign body COMPARISON: None. FINDINGS: No fractures or bone lesions. No arthritic changes. No radiopaque foreign body. IMPRESSION: No radiopaque foreign body. WSN: [id number] Ordering Physician: Shama Jiang Dictated By: Soco Orr MD Dictated Date/Time: 07/03/21 9:37 am Reviewed By: Soco Orr MD Signed By: Soco Orr MD Signed Date/Time: 07/03/21 9:37 am Transcribed By: PINO Transcribed Date/Time: 07/03/21 9:37 am * Exam Date Time Procedure Performing Provider Status 07/03/21 9:34 AM Forearm 2 Views Right Matsuk , Jack; Auth (Verified) Notes: (Forearm 2 Views Right) Reason For Exam: Pain RESULT: Forearm 2 Views Right Forearm 2 Views Right Hx of Present Illness: R hand and R inner arm pain edema since yesterday. current IVDA; Reason: Pain; Clinical Question(s): Foreign Body; h o IVDU, evaluate for foreign body COMPARISON: None. FINDINGS: No fractures or bone lesions. The visualized joint spaces are normal. No radiopaque foreign body. IMPRESSION: No radiopaque foreign body. WSN: [id number] Ordering Physician: Shama Jiang Dictated By: Soco Orr MD Dictated Date/Time: 07/03/21 9:37 am Reviewed By: Soco Orr MD Signed By: Soco Orr MD Signed Date/Time: 07/03/21 9:37 am Transcribed By: PINO Transcribed Date/Time: 07/03/21 9:36 am Vital Signs Most recent to oldest [Reference Range]: 1 2 3 Height 180 cm (07/05/21 1:43 AM) 180 cm (07/04/21 8:45 PM) 180 cm (07/03/21 4:40 PM) Weight 70.9 kg (07/03/21 4:40 PM) 71 kg (07/03/21 1:29 PM) 71 kg (07/03/21 9:18 AM) Oxygen Saturation [94-100 %] 100 % (07/05/21 8:00 AM) 100 % (07/05/21 1:43 AM) 99 % (07/04/21 8:45 PM) Pulse Rate [55-90 bpm] 76 bpm (07/05/21 8:00 AM) 61 bpm (07/05/21 1:43 AM) 81 bpm (07/04/21 8:45 PM) Body Mass Index [18.5-24.99] 21.88 (07/03/21 4:40 PM) 21.91 (07/03/21 1:29 PM) Blood Pressure [90-138/55-84 mm Hg] 124/78mm Hg (07/05/21 8:00 AM) 104/64mm Hg (07/05/21 1:43 AM) 111/59mm Hg (07/04/21 8:45 PM) Respiratory Rate [16-30 br/min] 18 br/min (07/05/21 8:39 AM) 18 br/min (07/05/21 8:39 AM) 18 br/min (07/05/21 8:00 AM) Temperature [96.8-100.4 DegF] 98.2 DegF (07/05/21 8:00 AM) 97.2 DegF (07/05/21 1:43 AM) 98.5 DegF (07/04/21 8:45 PM) Liters per Minute 0 L/min (07/05/21 8:00 AM) Mode of Delivery (Oxygen) Room air (07/05/21 8:00 AM) Room air (07/05/21 1:43 AM) Room air (07/04/21 8:45 PM) Blood pressure sites Arm, left (07/05/21 8:00 AM) Arm, right (07/05/21 1:43 AM) Arm, right (07/04/21 8:45 PM) Temperature Route Oral (07/05/21 8:00 AM) Oral (07/05/21 1:43 AM) Oral (07/04/21 8:45 PM) Dry Weight 70.9 kg (07/03/21 4:40 PM) 71 kg (07/03/21 1:29 PM) 71 kg (07/03/21 9:18 AM) Weight Obtained Via Patient/family stated (07/03/21 4:40 PM) Patient/family stated (07/03/21 9:18 AM) Dry Weight Obtained Via Patient/family stated (07/03/21 4:40 PM) Patient/family stated (07/03/21 9:18 AM) Social History Social History Type Response Smoking Status 5-9 cigarettes (betw een 1/4 to 1/2 pack)/day in last 30 days entered on: 07/17/20 Sex Male
--- OUTSIDE RECORDS SUMMARY | 2023-07-07 22:17 | XMS_ITS | Continuity of Care Document ---
Author Name Unknown Organization [facility] ter Address [address] [place] [id number]- Care Team Providers Care Business Machine Operator Name Role Phone Not on Staff, PCP Primary Care Physician Unavail able Encounter [facility] Date(s): 01/23/21 - 01/25/[address] [address] Discharge Disposition: A-D/C AMA Attending Physician: Nikki CHILD, Charlie Admitting Physician: Sonny CHILD, Jason Referring Physician: Not on Staff, Referring MD [...] 02/15/11 Given tetanus/diphtheria/pertussis, acel(Tdap) 01/26/08 Given Medications Acetaminophen Tablet 650 mg, Tablet, By Mouth, Every 4 hours, PRN for Pain , Mild, Temperature Greater than 100.5, Routine, 01/23/21 19:23:00 EDT Start Date: 01/23/21 Stop Date: 01/26/21 Status: Discontinued Bactrim DS 800 mg-160 mg oral tablet 1 tablet, By Mouth, 2 times a day, for 14 days, # 28 tablet, 0 Refills, Acute 02/08/21 14:04:00 EDT, 01/25/21 14:04:00 EDT, Tablet, [id number], Partial fill upon patient request if the prescription is for a schedule II opioid drug., 1... Start Date: 01/25/21 Stop Date: 02/08/21 Status: Ordered hydrOXYzine pamoate 50 mg oral capsule = 50 mg, By Mouth, 3 times a day, PRN Anxiety, # 90 capsule, 0 Refills, Maintenance, 08/24/20 11:49:00 EDT, Capsule, [facility]/pharmacy #[id number], Partial fill upon patient request if the prescription is for aschedule II opioid drug., 180, cm, 08/23/20 15:52:0... Start Date: 08/24/20 Status: Ordered methadone 10 mg oral tablet 5.5 tablet = 55 mg, By Mouth, Daily, 0 Refills, Maintenance, 08/24/20 11:49:00 EDT, Tablet, Partialfill upon patient request if the prescription is for a schedule II opioid drug. Start Date: 08/24/20 Status: Ordered Methadone Liquid 55 mg, Solution, By Mouth, 01/25/21 9:00:00 EDT Start Date: 01/25/21 Stop Date: 01/25/21 Status: Completed SEROquel XR 200 mg oral tablet, extended release 400 mg, 2, tablet, By Mouth, Daily at bedtime, # 60 tablet, Refills 0, Tot. Refills 0, Maintenance,08/24/20 11:49:00 EDT, Route to Pharmacy Electronically, [facility]/pharmacy #[id number], Partial fill upon patient request if the prescription is for a schedule II... Start Date: 08/24/20 Status: Ordered traZODone 50 mg oral tablet 50 mg, 1, tablet, By Mouth, 2 times a day, # 14 tablet, Refills 0, Tot. Refills 0, Maintenance, 08/24/20 11:48:00 EDT, Route to Pharmacy Electronically, [facility]/pharmacy #[id number], Partial fill upon patient request if [...] Results Orders for Microbiology Reports Name Date Wound Superficial Culture W/ Gram Smear (Superficial Wound Culture W/ Gram Smear) 01/23/21 Microbiology Reports TEST:Superficial Wound Culture STATUS:Unauthenticated BODY SITE: SOURCE:SWAB1 COLLECTED DATE/TIME:01/23/21 6:15 PM Superficial Wound Culture SPECIMEN DESCRIPTION : SWAB ARM LT SPECIAL REQUESTS : NONE GRAM STAIN : 2+ POLYMORPHONUCLEAR LEUKOCYTES 1+ GRAM POSITIVE COCCI CULTURE : 4+ STAPHYLOCOCCUS AUREUS. REPORT STATUS : PRELIMINARY REPORT Radiology Reports * Exam Date Time Procedure Performing Provider Status 01/23/21 4:55 PM Forearm 2 Views Left Lizzette Franklin; Auth (Verified) Notes: (Forearm 2 Views Left) Reason For Exam: Infection RESULT: Forearm 2 Views Left Forearm 2 Views Left Hx of Present Illness: pt just left without being seen , see previous assessment; Reason: Infection; Clinical Question(s): Foreign Body COMPARISON: Radiograph from the left forearm on 10/25/2020 FINDINGS: No fractures or bone lesions. No evidence of bony cortical destruction. The visualized joint spaces are normal. There is soft tissue swelling within the anterior mid forearm. No radiopaque foreign body. IMPRESSION: Soft tissue swelling of the anterior mid forearm which may be infectious in this clinical setting. No radiopaque foreign body. WSN: [id number] Ordering Physician: Jeevan Bernard Dictated By: Alonso Boston MD Dictated Date/Time: 01/23/21 4:59 pm Reviewed By: Alonso Boston MD Signed By: Alonso Boston MD Signed Date/Time: 01/23/21 4:59 pm Transcribed By: PINO Transcribed Date/Time: 01/23/21 4:57 pm Vital Signs Most recent to oldest [Reference Range]: 1 2 3 Height 181 cm (01/25/21 2:39 PM) 181 cm (01/25/21 5:10 AM) 181 cm (01/24/21 8:42 PM) Weight 61.4 kg (01/24/21 6:17 AM) 61.3 kg (01/23/21 8:59 PM) Oxygen Saturation [94-100 %] 100 % (01/25/21 2:39 PM) 100 % (01/25/21 5:10 AM) 100 % (01/24/21 8:42 PM) Pulse Rate [55-90 bpm] 56 bpm (01/25/21 2:39 PM) 55 bpm (01/25/21 5:10 AM) 59 bpm (01/24/21 8:42 PM) Body Mass Index [18.5-24.99] 18.74 (01/24/21 6:17 AM) 18.71 (01/23/21 8:59 PM) Blood Pressure [90-138/55-84 mm Hg] 101/48mm Hg (01/25/21 2:39 PM) 113/55mm Hg (01/25/21 5:10 AM) 123/60mm Hg (01/24/21 8:42 PM) Respiratory Rate [16-30 br/min] 14 br/min *L* (01/25/21 2:39 PM) 12 br/min *L* (01/25/21 11:53 AM) 12 br/min *L* (01/25/21 11:53 AM) Temperature [96.8-100.4 DegF] 97.8 DegF (01/25/21 2:39 PM) 98.1 DegF (01/25/21 5:10 AM) 98.8 DegF (01/24/21 8:42 PM) Mode of Delivery (Oxygen) Room air (01/25/21 2:39 PM) Room air (01/25/21 5:10 AM) Room air (01/24/21 8:42 PM) Blood pressure sites Arm, left (01/25/21 2:39 PM) Arm, right (01/25/21 5:10 AM) Arm, right (01/24/21 8:42 PM) Temperature Route Oral (01/25/21 2:39 PM) Oral (01/25/21 5:10 AM) Oral (01/24/21 8:42 PM) Dry Weight 61.3 kg (01/23/21 8:59 PM) Weight Obtained Via Bed scale (01/24/21 6:17 AM) Standing scale (01/23/21 8:59 PM) Dry Weight Obtained Via Standing scale (01/23/21 8:59 PM) Social History Social History Type Response Smoking Status 5-9 cigarettes (alexanderw eejanel 1/4 to 1/2 pack)/day in last 30 days entered on: 07/17/20 Sex Male
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
--- OUTSIDE RECORDS SUMMARY | 2023-07-07 22:17 | XMS_ITS | Continuity of Care Document ---
Author Name Unknown Organization [facility] ter Address [address] [place] [address]- Care Team Providers Care Lobby Concierge Name Role Phone Sidney TORREZ, Noemi Primary Care Physician Encounter [facility] Date(s): 01/16/20 - 01/21/[address] [address]- [facility] Encounter Diagnosis Cellulitis(Final) - 01/16/20 Abscess(Final) - 01/16/20 Discharge Disposition: A-D/C AMA Attending Physician: Amanda Larson MD Admitting Physician: Sophie Pandey MD Referring Physician: Not on Staff, Referring [...] 02/15/11 Given tetanus/diphtheria/pertussis, acel(Tdap) 01/26/08 Given Medications levoFLOXacin 750 mg oral tablet 1 tablet = 750 mg, By Mouth, Every 24 hours, for 7 days, # 7 tablet, 0 Refills, Acute 01/28/20 12:31:00 EDT, 01/21/20 12:31:00 EDT, Tablet, [facility], 180, cm, 01/21/20 5:08:00 EDT, Height, 80.3, kg, 01/16/20 23:15:00 EDT, Dry Weight Start Date: 01/21/20 Stop Date: 01/28/20 Status: Ordered linezolid 600 mg oral tablet 1 tablet = 600 mg, By Mouth, Every 12 hours, for 7 days, # 14 tablet, 0 Refills, Acute 01/28/20 12:31:00 EDT, 01/21/20 12:31:00 EDT, Tablet, [facility], 180, cm, 01/21/20 5:08:00 EDT, Height, 80.3, kg, 01/16/20 23:15:00 EDT, Dry Weight Start Date: 01/21/20 Stop Date: 01/28/20 Status: Ordered ZyPREXA 5 mg oral tablet See Instructions, 1 tablet By Mouth in morning (5mg), and 2 tablets at bedtime (10mg), # 90 tablet,Refills 0, Tot. Refills 0, Maintenance, 09/21/19 9:11:00 EDT, Instructions Replace Required Details, Print Requisition Start Date: 09/21/19 Status: Ordered Problem List Condition Effective Dates [...] Reports Name Date Anaerobic Culture (ANAEROBIC CULTURE) 01/19/20 Anaerobic Culture (ANAEROBIC CULTURE) 01/19/20 Wound Deep Culture w/ Gram Smear (DEEP W OUND CULTURE) 01/19/20 Wound Deep Culture w/ Gram Smear (DEEP W OUND CULTURE) 01/19/20 Blood Culture 01/18/20 Blood Culture #2 01/18/20 Blood Culture 01/16/20 Blood Culture #2 01/16/20 Microbiology Reports TEST:Anaerobic Culture STATUS:Unauthenticated BODY SITE: SOURCE:SWAB1 COLLECTED DATE/TIME:01/19/20 7:01 PM Anaerobic Culture SPECIMEN DESCRIPTION : SWAB LEFT FOREARM ABSCESS SPECIAL REQUESTS : NONE CULTURE : NO ANAEROBES ISOLATED SO FAR. REPORT STATUS : PRELIMINARY REPORT TEST:Anaerobic Culture STATUS:Unauthenticated BODY SITE: SOURCE:SWAB1 COLLECTED DATE/TIME:01/19/20 7:01 PM Anaerobic Culture SPECIMEN DESCRIPTION : SWAB RIGHT FOREARM ABSCESS SPECIAL REQUESTS : NONE CULTURE : NO ANAEROBES ISOLATED SO FAR. REPORT STATUS : PRELIMINARY REPORT TEST:Deep Wound Culture STATUS:Unauthenticated BODY SITE: SOURCE:SWAB1 COLLECTED DATE/TIME:01/19/20 7:01 PM Deep Wound Culture SPECIMEN DESCRIPTION : SWAB LEFT FOREARM ABSCESS SPECIAL REQUESTS : NONE GRAM STAIN : 1+ TISSUE CELLS NO ORGANISMS SEEN CULTURE : 1+ STREPTOCOCCI, GROUP C BETA HEMOLYTIC. SUSCEPTIBILITY TESTING NOT ROUTINELY PERFORMED ON THIS ISOLATE. 1+ STREPTOCOCCI, GROUP F BETA HEMOLYTIC. SUSCEPTIBILITY TESTING NOT ROUTINELY PERFORMED ON THIS ISOLATE. 1+ STREPTOCOCCUS SPECIES SUSCEPTIBILITY TESTING NOT ROUTINELY PERFORMED ON THIS ISOLATE. 1+ STAPH. SPECIES, NOT STAPH. AUREUS SUSCEPTIBILITY TESTING NOT ROUTINELY PERFORMED ON THIS ISOLATE. REPORT STATUS : PRELIMINARY REPORT TEST:Deep Wound Culture STATUS:Unauthenticated BODY SITE: SOURCE:SWAB1 COLLECTED DATE/TIME:01/19/20 7:01 PM Deep Wound Culture SPECIMEN DESCRIPTION : SWAB RIGHT FOREARM ABSCESS SPECIAL REQUESTS : NONE GRAM STAIN : 4+ POLYMORPHONUCLEAR LEUKOCYTES 1+ GRAM NEGATIVE RODS CULTURE : 1+ STREPTOCOCCI, GROUP C BETA HEMOLYTIC. SUSCEPTIBILITY TESTING NOT ROUTINELY PERFORMED ON THIS ISOLATE. 1+ STREPTOCOCCI, GROUP F BETA HEMOLYTIC. SUSCEPTIBILITY TESTING NOT ROUTINELY PERFORMED ON THIS ISOLATE. 1+ STREPTOCOCCUS SPECIES SUSCEPTIBILITY TESTING NOT ROUTINELY PERFORMED ON THIS ISOLATE. REPORT STATUS : PRELIMINARY REPORT TEST:Blood Culture STATUS:Unauthenticated BODY SITE: SOURCE:Blood COLLECTED DATE/TIME:01/18/20 4:53 PM Blood Culture SPECIMEN DESCRIPTION : BLOOD L HAND SPECIAL REQUESTS : NONE CULTURE : NO GROWTH 3 DAYS REPORT STATUS : PRELIMINARY REPORT TEST:Blood Culture, Second Order STATUS:Unauthenticated BODY SITE: SOURCE:Blood COLLECTED DATE/TIME:01/18/20 4:53 PM Blood Culture, Second Order SPECIMEN DESCRIPTION : BLOOD R HAND SPECIAL REQUESTS : NONE CULTURE : NO GROWTH 3 DAYS REPORT STATUS : PRELIMINARY REPORT TEST:Blood Culture, Second Order STATUS:Auth (Verified) BODY SITE: SOURCE:Blood COLLECTED DATE/TIME:01/16/20 10:05 PM Blood Culture, Second Order SPECIMEN DESCRIPTION : BLOOD L HAND SPECIAL REQUESTS : CRITICAL VALUE CALLED AND VERIFIED BY READBACK FOR: GRAM POSITIVE RODS CALLED TO [id number], [id number], 01/19/20 AT 2357, BY TECH [id number]. CULTURE : BACILLUS SPECIES Single isolates of Staph. species, not Staph. aureus, Micrococci, Bacillus species, Diphtheroids, Cutibacterium acnes (formerly Propionibacterium acnes) and Viridans Group Streptococci could be skin contaminants. Multiple isolates of these organisms are more likely to be significant. REPORT STATUS : FINAL 01/21/2020 TEST:Blood Culture STATUS:Auth (Verified) BODY SITE: SOURCE:Blood COLLECTED DATE/TIME:01/16/20 10:02 PM Blood Culture SPECIMEN DESCRIPTION : BLOOD R HAND SPECIAL REQUESTS : CRITICAL VALUE CALLED AND VERIFIED BY READBACK FOR: GRAM POSITIVE RODS CALLED TO [id number], [id number], ON 01/17/2020 AT 20:23 BY TECH [id number] CULTURE : BACILLUS SPECIES Single isolates of Staph. species, not Staph. aureus, Micrococci, Bacillus species, Diphtheroids, Cutibacterium acnes (formerly Propionibacterium acnes) and Viridans Group Streptococci could be skin contaminants. Multiple isolates of these organisms are more likely to be significant. Further identification to follow. No target organisms detected using the [employer] BCID panel. This panel includes 24 bacterial and fungal targets and 3 resistance mechanisms. REPORT STATUS : FINAL 01/18/2020 Radiology Reports * Exam Date Time Procedure Performing Provider Status 01/17/20 2:29 PM Elbow Min 3 Views Left Armani Aragon; Auth (Verified) Notes: (Elbow Min 3 Views Left) Reason For Exam: Pain RESULT: Elbow Min 3 Views Left Elbow Min 3 Views Left, 3 views Reason: Pain; Clinical Question(s): Foreign Body; Hx of Present Illness: lt foot and rt elbow pain missed veins while injecting drugs; Other Objective Findings: + redness of rt antecubital area COMPARISON: None. FINDINGS: No fracture or dislocation. No arthritic changes. No joint effusion. There is soft tissue swelling in the left elbow. On the oblique view, there is soft tissue swelling in the anterolateral distal upper arm with multiple round foci of lucency concerning for subcutaneous gas. No radiopaque foreign body. IMPRESSION: Soft tissue swelling and subcutaneous gas in the anterolateral distal upper arm with no radiopaque foreign body. WSN: [id number] Ordering Physician: Amanda Larson Dictated By: Chen Silverio MD Dictated Date/Time: 01/17/20 2:57 pm Reviewed By: Chen Silverio MD Signed By: Chen Silverio MD Signed Date/Time: 01/17/20 2:57 pm Transcribed By: PINO Transcribed Date/Time: 01/17/20 2:56 pm * Exam Date Time Procedure Performing Provider Status 01/16/20 11:57 AM Elbow Min 3 Views Right Rocael Bates; Auth (Verified) Notes: (Elbow Min 3 Views Right) Reason For Exam: Infection RESULT: Elbow Min 3 Views Right Elbow Min 3 Views Right INDICATION / CLINICAL QUESTION: Elbow pain. Concern of foreign body. The patient self injects drugs. Erythema and acute origin. TECHNIQUE: AP, lateral, and oblique views. COMPARISON: None. FINDINGS: There is no fracture or focal bony lesion. There is no dislocation. No bone destruction or periosteal reaction.. There is no evidence of arthritis. There is no joint effusion. There is no opaque foreign body in the soft tissues. There is some edematous change in the soft tissues anteriorly and medially. There are approximately 4 tiny air bubbles in the subcutaneous fat in the antecubital region with the largest measuring 2 mm. IMPRESSION: 1. There is no bone or joint abnormality seen. 2. No foreign body. 3. Superficial soft tissue swelling. 4. 4 small rounded bubble of gas in the subcutaneous fat in the antecubital fossa. Given the patient's history the most likely explanation of these would be due to recent attempted needle injections in this area. WSN: [id number] Ordering Physician: Clarice Meehan Dictated By: Jean-Claude Strong MD Dictated Date/Time: 01/16/20 12:07 p Reviewed By: Jean-Claude Strong MD Signed By: Jean-Claude Strong MD Signed Date/Time: 01/16/20 12:07 pm Transcribed By: PINO Transcribed Date/Time: 01/16/20 12:04 pm * Exam Date Time Procedure Performing Provider Status 01/16/20 11:57 AM Foot Min 3 Views Left Helen Bates; Auth (Verified) Notes: (Foot Min 3 Views Left) Reason For Exam: Infection RESULT: Foot Min 3 Views Left Foot Min 3 Views Left INDICATION / CLINICAL QUESTION: Soft tissue infection. Left foot pain. Recent drug injection. Concern of a foreign body such as needle tip. COMPARISON: None.. TECHNIQUE: AP, oblique, and lateral views. FINDINGS: There is no fracture. No bone destruction or periosteal reaction. 9 mm lucent lesion within sclerotic rim proximal findings the great toe unchanged since 2011 and nosignificance. No other focal bony abnormality. . The joint spaces are normal. There is no gas or opaque foreign body in the soft tissues. There is some soft tissue swelling of the great toe.. IMPRESSION: 1. No bony injury. No plain film evidence of osteomyelitis. 2. No arthritic change.. 3. No opaque foreign body. 4. There is some soft tissue swelling of the great toe. WSN: [id number] Ordering Physician: Clarice Meehan Dictated By: Jean-Claude Strong MD Dictated Date/Time: 01/16/20 12:04 p Reviewed By: Jean-Claude Strong MD Signed By: Jean-Claude Strong MD Signed Date/Time: 01/16/20 12:04 pm Transcribed By: PINO Transcribed Date/Time: 01/16/20 12:02 pm Vital Signs Most recent to oldest [Reference Range]: 1 2 3 Height 180 cm (01/21/20 5:08 AM) 180 cm (01/20/20 9:32 PM) 180 cm (01/20/20 2:32 PM) Weight 80.3 kg (01/19/20 6:27 PM) 80.3 kg (01/16/20 8:43 PM) 80.3 kg (01/16/20 7:11 PM) Oxygen Saturation [94-100 %] 100 % (01/21/20 5:08 AM) 98 % (01/20/20 9:32 PM) 100 % (01/20/20 2:32 PM) Pulse Rate [55-90 bpm] 64 bpm (01/21/20 5:08 AM) 51 bpm *L* (01/20/20 9:32 PM) 63 bpm (01/20/20 2:32 PM) Body Mass Index [18.5-24.99] 24.78 (01/19/20 6:27 PM) 24.78 (01/16/20 8:43 PM) 24.78 (01/16/20 7:11 PM) Blood Pressure [90-138/55-84 mm Hg] 131/56mm Hg (01/21/20 5:08 AM) 147/66mm Hg *H* (01/20/20 9:32 PM) 159/65mm Hg *H* (01/20/20 2:32 PM) Respiratory Rate [16-30 br/min] 18 br/min (01/21/20 9:23 AM) 16 br/min (01/21/20 8:23 AM) 18 br/min (01/21/20 5:08 AM) Temperature [96.8-100.4 DegF] 97.9 DegF (01/21/20 5:08 AM) 97.8 DegF (01/20/20 9:32 PM) 98.3 DegF (01/20/20 2:32 PM) Liters per Minute 6 L/min (01/19/20 7:25 PM) Mode of Delivery (Oxygen) Room air (01/21/20 5:08 AM) Room air (01/20/20 9:32 PM) Room air (01/20/20 2:32 PM) Blood pressure sites Leg, right (01/21/20 5:08 AM) Leg, right (01/20/20 9:32 PM) Leg, right (01/20/20 2:32 PM) Temperature Route Oral (01/21/20 5:08 AM) Oral (01/20/20 9:32 PM) Oral (01/20/20 2:32 PM) Dry Weight 80.3 kg (01/16/20 8:43 PM) 80.3 kg (01/16/20 7:11 PM) 80.3 kg (01/16/20 2:43 PM) Weight Obtained Via Standing scale (01/16/20 10:24 AM) Dry Weight Obtained Via Standing scale (01/16/20 10:24 AM) Social History Social History Type Response Sex Male
--- OUTSIDE RECORDS SUMMARY | 2023-07-07 22:17 | XMS_ITS | Continuity of Care Document ---
Author Name Unknown Organization [facility] ter Address [address] [place] [id number]- Care Team Providers Care Dental Associate Name Role Phone Sidney TORREZ, Noemi Primary Care Physician [phone] Encounter [facility] Date(s): 11/06/21 - 11/07/[address] [address] Discharge Disposition: A-D/C AMA Attending Physician: Den Cantrell MD Admitting Physician: Joanne Mccoy MD Referring Physician: Not on Staff, Referring [...] Refills, Maintenance, 11/04/21 19:42:00 EDT, Capsule, [id number], Partial fill upon patient request if the prescription is for a schedule II opioid drug., 180, cm, 07/05/21 1:43:00 E... Start Date: 11/04/21 Stop Date: 11/11/21 Status: Ordered Percocet-5/325 325 mg-5 mg oral tablet 1 tablet, Tablet, By Mouth, Once, PRN for Pain , Moderate, Routine, 11/06/21 20:19:00 EDT Start Date: 11/06/21 Stop Date: 11/06/21 Status: Completed Problem List Condition Effective Dates Status Health [...] for Microbiology Reports Name Date Blood Culture 11/06/21 Blood Culture #2 11/06/21 Microbiology Reports TEST:Blood Culture, Second Order STATUS:Unauthenticated BODY SITE: SOURCE:Blood COLLECTED DATE/TIME:11/06/21 7:50 AM Blood Culture, Second Order SPECIMEN DESCRIPTION : BLOOD NOSITE SPECIAL REQUESTS : NONE CULTURE : NO GROWTH AFTER 24 HOURS REPORT STATUS : PRELIMINARY REPORT TEST:Blood Culture STATUS:Unauthenticated BODY SITE: SOURCE:Blood COLLECTED DATE/TIME:11/06/21 6:50 AM Blood Culture SPECIMEN DESCRIPTION : BLOOD NOSITE SPECIAL REQUESTS : NONE CULTURE : NO GROWTH AFTER 24 HOURS REPORT STATUS : PRELIMINARY REPORT Vital Signs Most recent to oldest [Reference Range]: 1 2 3 Height 180 cm (11/07/21 5:58 AM) 180 cm (11/06/21 10:15 PM) 180 cm (11/06/21 4:27 PM) Weight 70.0 kg (11/06/21 4:27 PM) 70 kg (11/06/21 12:45 PM) 70 kg (11/06/21 8:09 AM) Oxygen Saturation [94-100 %] 100 % (11/07/21 5:58 AM) 100 % (11/06/21 10:15 PM) 99 % (11/06/21 2:00 PM) Pulse Rate [55-90 bpm] 66 bpm (11/07/21 5:58 AM) 69 bpm (11/06/21 10:15 PM) 69 bpm (11/06/21 4:27 PM) Body Mass Index [18.5-24.99] 21.6 (11/06/21 4:27 PM) Blood Pressure [90-138/55-84 mm Hg] 109/79mm Hg (11/07/21 5:58 AM) 113/54mm Hg (11/06/21 10:15 PM) 121/66mm Hg (11/06/21 4:27 PM) Respiratory Rate [16-30 br/min] 18 br/min (11/07/21 5:58 AM) 18 br/min (11/06/21 10:15 PM) 18 br/min (11/06/21 9:27 PM) Temperature [96.8-100.4 DegF] 98.4 DegF (11/07/21 5:58 AM) 98.9 DegF (11/06/21 10:15 PM) 99.4 DegF (11/06/21 4:27 PM) Mode of Delivery (Oxygen) Room air (11/07/21 5:58 AM) Room air (11/06/21 10:15 PM) Room air (11/06/21 2:00 PM) Blood pressure sites Arm, right (11/07/21 5:58 AM) Arm, left (11/06/21 10:15 PM) Arm, right (11/06/21 4:27 PM) Temperature Route Oral (11/07/21 5:58 AM) Oral (11/06/21 10:15 PM) Oral (11/06/21 4:27 PM) Dry Weight 70.0 kg (11/06/21 4:27 PM) Weight Obtained Via Bed scale (11/06/21 4:27 PM) Dry Weight Obtained Via Bed scale (11/06/21 4:27 PM) Social History Social History Type Response Smoking Status 5-9 cigarettes (betw een 1/4 to 1/2 pack)/day in last 30 days entered on: 07/17/20 Sex Male
--- OUTSIDE RECORDS SUMMARY | 2023-07-07 22:17 | XMS_ITS | Continuity of Care Document ---
Author Name Unknown Organization [facility] Address [address] [place] [id number]- Care Team Providers Care Pharmaceutical Botanist Name Role Phone Sidney TORREZ, Noemi Primary Care Physician Encounter [facility] Date(s): 11/15/21 - 11/15/[address] [address]- Discharge Disposition: A-D/C Walkout Attending Physician: Not [...] Refills, Maintenance, 11/04/21 19:42:00 EDT, Capsule, [id number], Partial fill upon patient request if the [...] Exam Date Time Procedure Performing Provider Status 11/15/21 4:10 PM Ankle Min 3 Views Right Gerson Hopkins le; Auth (Verified) Notes: (Ankle Min 3 Views Right) Reason For Exam: Infection RESULT: Ankle Min 3 Views Right Ankle Min 3 Views Right CLINICAL INDICATION: Hx of Present Illness: Pt seen on 11 02 for right medial lower leg infection after shooting up in extremity multiple times. Pt did not fill script. Pt seen here on 11 06 for pain and infection- surgery consulted, pt given iv abx and d c'd home on abx. Pt BIBA again- reports ; Reason: Infection; Clinical Question(s): Osteomyelitis COMPARISONS: 11/04/2021 TECHNIQUE: AP, lateral and stress views of the right ankle were obtained. FINDINGS: There is medial malleolar soft tissue edema which is worse compared to the study. There is no bone erosion or destruction to suggest osteomyelitis. There is no fracture or dislocation. The ankle mortise is not widened. No retained foreign body is identified. Hindfoot midfoot alignment is normal. IMPRESSION: Worsening medial malleolar soft tissue swelling possibly due to underlying cellulitis. No x-ray evidence for osteomyelitis. WSN: [id number] Ordering Physician: Elijah Manzo Dictated By: Alonso López MD Dictated Date/Time: 11/15/21 4:48 pm Reviewed By: Alonso López MD Signed By: Alonso López MD Signed Date/Time: 11/15/21 4:48 pm Transcribed By: PINO Transcribed Date/Time: 11/15/21 4:47 pm Vital Signs Most recent to oldest [Reference Range]: 1 2 Oxygen Saturation [94-100 %] 100 % (11/15/21 5:11 PM) 99 % (11/15/21 1:58 PM) Pulse Rate [55-90 bpm] 75 bpm (6/5/22 5:11 PM) 74 bpm (11/15/21 1:58 PM) Blood Pressure [90-138/55-84 mm Hg] 111/ 48mm Hg (11/15/21 5:11 PM) 114/58mm Hg (11/15/21 1:58 PM) Respiratory Rate [16-30 br/min] 18 br/mi n (11/15/21 1:58 PM) Temperature [96.8-100.4 DegF] 100.0 DegF (11/15/21 5:11 PM) 100.3 DegF (11/15/21 1:58 PM) Mode of Delivery (Oxygen) Room air (11/15/21 5:11 PM) Room air (11/15/21 1:58 PM) Blood pressure sites Arm, left (11/15/21 5:11 PM) Arm, right (11/15/21 1:58 PM) Temperature Route Oral (11/15/21 5:11 PM) Oral (11/15/21 1:58 PM) Social History Social History Type Response Smoking Status 5-9 cigarettes (betw een 1/4 to 1/2 pack)/day in last 30 days entered on: 07/17/20 Sex Male
--- OUTSIDE RECORDS SUMMARY | 2023-07-07 22:17 | XMS_ITS | Continuity of Care Document ---
Author Name Unknown Organization [facility] ter Address [address] [place] [address]- Care Team Providers Care Industrial Services Worker Name Role Phone Sidney TORREZ, Noemi Primary Care Physician Encounter [facility] Date(s): 07/18/22 - 07/18/[address] [address]- Discharge Disposition: A-D/C Home Attending Physician: Elijah Manzo DO Admitting Physician: Elijah Manzo DO Referring Physician: Not on Staff, Referring MD Allergies, Adverse Reactions, Alerts Substance Reaction Severity Status ibuprofen Active aspirin SWELLING Active Other Food Allergy 1, 2, 3 A ctive Other Environmental Allergy mace Active Miscellaneous enteral foods hot sauce Active 1hot [...] 2 Oxygen Saturation [94-100 %] 98 % (07/18/22 8:19 PM) 97 % (07/18/22 8:18 PM) Pulse Rate [55-90 bpm] 112 bpm *H* (07/18/22 8:19 PM) 128 bpm *H* (07/18/22 8:18 PM) Blood Pressure [90-138/55-84 mm Hg] 134/ 63mm Hg (07/18/22 8:19 PM) 162/103mm Hg *H* (07/18/22 8:18 PM) Respiratory Rate [16-30 br/min] 20 br/mi n (07/18/22 8:19 PM) 20 br/min (07/18/22 8:18 PM) Temperature [96.8-100.4 DegF] 98.2 DegF (07/18/22 8:19 PM) 98.1 DegF (07/18/22 8:18 PM) Mode of Delivery (Oxygen) Room air (07/18/22 8:19 PM) Room air (07/18/22 8:18 PM) Blood pressure sites Arm, right (07/18/22 8:19 PM) Arm, right (07/18/22 8:18 PM) Temperature Route Oral (07/18/22 8:19 PM) Oral (07/18/22 8:18 PM) Social History Social History Type Response Smoking Status 5-9 cigarettes (betw een 1/4 to 1/2 pack)/day in last 30 days entered on: 07/17/20 Sex Male Patient Care team information Care Team Personnel Name: Trudi Cohen RN Position: [facility] RN Member Role: Primary Care Nurse Name: Analy Johansen RN Position: [facility] RN Member Role: Primary Care Nurse Name: Thuy Houston RN Position: [facility] HBO Wound Member Role: Primary Care Nurse Name: Michael Freitas RN Position: [facility] RN Member Role: Primary Care Nurse Name: Antwan Garcia RN Position: [facility] RN Member Role: Primary Care Nurse Name: Noemi Little NP Position: Reference Physician Member Role: PCP Address: Address: [address] [place] [phone]- [place] Name: Jesse Dumas RN Position: [facility] RN Member Role: Primary Care Nurse Name: Margaux Casey RN Position: [facility] AMB Nurse Member Role: Primary Care Nurse Name: Roberth Catalan RN Position: [facility] RN Member Role: Primary Care Nurse Name: Sarah Coffey RN Position: [facility] RN Member Role: Primary Care Nurse Name: Yamini Bang RN Position: [facility] RN Member Role: Primary Care Nurse Name: Yanet Warren RN Position: [facility] RN Member Role: Primary Care Nurse Name: Troy Salinas RN Position: [facility] RN Member Role: Primary Care Nurse Address: Address: [address] [place] [id number]- Name: Jennifer Millan RN Position: [facility] SN RN Member Role: Primary Care Nurse Name: Daly Meadows RN Position: [facility] Hospital Date Pitter Member Role: Primary Care Nurse [facility] Attending Position: [facility] ED Attendings Patient Name: Elijah Manzo DO Position: [facility] ED Medicine MD Member Role: Admitting Physician Address: Address: [address] [facility] [place] [address]- [place] Name: Yarelis Loza RN Position: [facility] ED RN W/OE and Tasks Member Role: Patient Care Provider Care Team Related Persons Name: EREN CONLEY Address: home [address] [place] [address] Name: AMARA JIN Address: [place] [address]
[2023-07-07 22:36] LABS: Appearance Urine Clear; Color Urine Yellow; Glucose Urine UA Negative (Negative); Leukocyte Esterase Urine Negative (Negative); Nitrite Urine Negative (Negative); Urine Blood Negative (Negative); Urine Ketones Negative (Negative); Urine Protein Negative (Neg-Trace)
[2023-07-07 22:42] LABS: Amphetamine Screen Urine Not Detected (Not Detect); Barbiturates, Urine Not Detected (Not Detect); Benzodiazepines Screen Urine Not Detected (Not Detect); Cannabinoid Screen Urine Not Detected (Not Detect); Cocaine Screen Urine Not Detected (Not Detect); Opiate Screen Urine Not Detected (Not Detect); Phencyclidine Screen Urine Not Detected (Not Detect)
[2023-07-07 22:56] LABS: Fentanyl, urine Not Detected (Not Detect)
[2023-07-07 23:56] VITALS: BP 106/65; PULSE 68; RESP 16; TEMP 36.2; O2SAT 97
--- NOTE | 2023-07-08 00:23 | MHC.EDTECH ---
call out to michael at 0023 to book transport for pt back to [facility], estimated eta given was within the hour
[2023-07-08 01:18] VITALS: BP 100/56; PULSE 76; RESP 16; TEMP 36.4; O2SAT 97
== END 2023-07-08 05:00 | disposition home or self-care (01) ==
PROVIDERS: Emergency Provider Internal Medicine
DX: K59.00 Constipation, unspecified (principal); R10.12 Left upper quadrant pain; F11.20 Opioid dependence, uncomplicated; F17.210 Nicotine dependence, cigarettes, uncomplicated; Z79.899 Other long term (current) drug therapy
CPT/HCPCS: 36415; 74176; 80048; 80307; 81003; 83690; 85027; 96361; 96374; 96375; 99284; J1885